=== PATIENT | female | born 1945 | race Caucasian/White ===

== ENCOUNTER → 2017-03-25 | Outpatient (CLI) | payer OTHER ==
[~2017-03-25] MED LIST: ALBUAER INH; ASPI81CH2 PO; CALC-20 PO; CALC600T; CALCTAB5 PO; CMD6 PO; FSMD/70 PO; FURO40TA3 PO; IPRASOL4 INH; LEVO1TAB33 PO; LISI20TA3 PO; MCRK20 PO; OXGN; OXYM0.0592 INH; POTA20TA16 PO; ROSU20TA PO; SERT1TAB68 PO; TPRSR/50 PO; WARF-283 PO
[2017-03-25 18:11] LABS: INR 3.2 (0.9-1.1); PROTHROMBIN TIME (PATIENT) 36.4 SECONDS (9.0-12.0)
== END | disposition home or self-care (01) ==
LOC: C.LABMFLN 07:28
PROVIDERS: ATTEND Family Medicine
DX: Z95.2 Presence of prosthetic heart valve (principal)

== ENCOUNTER → 2017-04-09 | Outpatient (CLI) | payer OTHER ==
[2017-04-09 13:04] LABS: PROTHROMBIN TIME (PATIENT) 45.3 SECONDS (9.0-12.0)
== END | disposition home or self-care (01) ==
LOC: C.LABMFLN 10:37
PROVIDERS: ATTEND Family Medicine
DX: Z95.2 Presence of prosthetic heart valve (principal)

== ENCOUNTER 2017-05-06 21:56 | Inpatient (IN) | payer OTHER ==
[~2017-05-06] VITALS: Ht 149.9 cm; Wt 104.1 kg
[~2017-05-06 21:56] MED LIST changes: -ASPI81CH2 PO; -CALC-20 PO; -CALC600T; -FSMD/70 PO; -FURO40TA3 PO; -IPRASOL4 INH; -LEVO1TAB33 PO; -LISI20TA3 PO; -MCRK20 PO; -OXGN; -POTA20TA16 PO; -ROSU20TA PO; -SERT1TAB68 PO; -TPRSR/50 PO; -WARF-283 PO
[2017-05-06 22:29] LABS: COMPLETE YES; EOS % 1.6 %; HEMATOCRIT 39.4 % (37-47); IG% 0.1 %; LYMPH ABS # 0.92 K/uL (1.2-3.4); MEAN CELL VOLUME 91.8 fL (80-100); MEAN CORPUSCULAR HEMOGLOBIN 28.9 pg (25-34); MEAN CORPUSCULAR HGB CONC 31.5 g/dl (32-36); MEAN PLATELET VOLUME 12.4 fL (7.4-10.4); MONO % 9.9 %; NEUT % 75.4 %; PLATELET COUNT 151 K/uL (130-400); RED BLOOD COUNT 4.29 M/uL (4.2-5.4); WHITE BLOOD COUNT 7.07 K/uL (4.8-10.8)
[2017-05-06] MEDS ORDERED: METHYLPREDNISOLONE 125 MG VIAL IV STA (22:41)
[2017-05-06] MEDS ORDERED: ALBUT/IPRATROP 3MG/0.5MG NEB 3 ML VIAL INH ONE (22:45)
[2017-05-06 22:48] LABS: BUN/CREATININE RATIO 19.9 (10-20); CREATININE 1.1 mg/dl (0.60-1.20); POTASSIUM 4.1 mmol/L (3.5-5.1)
[2017-05-06 22:51] LABS: ALB/GLOB RATIO 0.8 (0.9-2)
[2017-05-06 22:52] LABS: CALCIUM 8.8 mg/dl (8.5-10.1); INR 3.1 (0.9-1.1); PARTIAL THROMBOPLASTIN RATIO 1.9; PROTHROMBIN TIME (PATIENT) 34.8 SECONDS (9.0-12.0)
--- NOTE | 2017-05-06 22:55 | DIAGNOSTIC IMAGING REPORT ---
CHEST ONE VIEW PORTABLE CLINICAL HISTORY: SOB dyspnea COMPARISON STUDY: No previous studies for comparison. FINDINGS: Moderate cardiomegaly. Median sternotomy. Bipolar cardiac pacemaker. Slight blunting left lateral costophrenic angle. Findings of congestive failure. IMPRESSION: Congestive heart failure. Electronically signed by: Armin Chowdary M.D. 05/06/2017 10:54 PM Dictated Date/Time: 05/06/2017 10:54 PM
[2017-05-06] MEDS ORDERED: FUROSEMIDE 40 MG/4 ML VIAL IV STA (23:55)
[2017-05-07] VITALS (12 sets, daily range): BP systolic 92–134; BP diastolic 58–69; PULSE 59–92; TEMP 36.4–36.8; O2SAT 88–98; Ht 149.9 cm; Wt 104.1 kg
[2017-05-07] MEDS ORDERED: CALC600T (00:25)
[2017-05-07] MEDS ORDERED: OXGN (00:26)
--- NOTE | 2017-05-07 01:21 | EMERGENCY ROOM VISIT NOTE ---
History Report prepared by Aleta: Clinton Diego Under the Supervision of: Dr. Allan Telles M.D. First contact with patient: 22:26 Chief Complaint: SHORTNESS OF BREATH Stated Complaint: SOB History of Present Illness The patient is a 72 year old female who presents to the Emergency Room by EMS with complaints of persistent shortness of breath beginning 1.5 months ago. Per nursing staff, the patient was diagnosed with bilateral lower lobe pneumonia about 1.5 months ago at [facility] and been having problems with shortness of breath and coughing ever since. She states that the patient's cough produces a yellow sputum. She states that the patient has been wheezing as well. Nursing staff states that the patient has been seen three times in the [place] ED for her symptoms. She notes that the patient finished her treatment of Doxycycline three days ago. She states that the patient's symptoms acutely worsened yesterday, and she decided to present to this ED for a second opinion. The patient wears 3.5 L of oxygen at night. She has a history of asthma , CHF, HTN, hyperlipidemia, and has a pacemaker in place. She was given a DuoNeb en route which improved her symptoms. The patient notes that she was diagnosed with asthma very recently. She states that her symptoms were not improved with steroids or antibiotics. She was afebrile en route. Pt denies LOC , headache, chills, diaphoresis, visual changes, neck pain, chest pain, nausea, vomiting, abdominal pain, back pain, melena, hematochezia, urinary symptoms, numbness, weakness, lymphadenopathy, rash, or other complaints. Source of History: patient, nursing staff Onset: 1.5 months ago Quality: other (shortness of breath) Timing: other (persistent) Associated Symptoms: + cough (produces yellow sputum), No fevers, No chest pain Review of Systems See HPI for pertinent positives and negatives. A total of ten systems were reviewed and were otherwise negative. Past Medical & Surgical Medical Problems: (1) Asthma (2) CHF (congestive heart failure) (3) HTN (hypertension) (4) Hyperlipidemia (5) Pacemaker Surgical Problems: (1) Mechanical heart valve present Family History No pertinent family history stated. Social History Smoking Status: Never Smoker Housing Status: lives with family Occupation Status: retired Current/Historical Medications Scheduled Alendronate/Cholecalciferol (Fosamax+D 70MG/2800 Iu), 1 TABLET PO WK Aspirin (Aspirin), 81 MG PO DAILY Calcium Carbonate-Vitamin D (Calcium 600 + D), 1 TAB PO AMHS Furosemide (Lasix), 40 MG PO QAM Lisinopril (Prinivil), 20 MG PO HS Metoprolol Succinate (Metoprolol Succinate ER), 50 MG PO QAM Oxygen (Oxygen), 3 LITERS NA HS Rosuvastatin Calcium (Crestor), 20 MG PO HS Sertraline Hcl (Zoloft), 100 MG PO HS Warfarin Sodium (Warfarin Sodium), MG PO DIRECTED Allergies Coded Allergies: Morphine (Verified Allergy, Severe, HALLUCINATIONS AND AGGRESSION, 05/07/17) Digoxin (Verified Adverse Reaction, Severe, N/V, 05/07/17) Physical Exam Vital Signs Date Time Temp Pulse Resp B/P (MAP) Pulse Ox O2 Delivery O2 Flow Rate FiO2 05/07/17 01:08 77 128/76 93 Nasal Cannula 2.0 05/07/17 00:15 93 14 128/ 93 Nasal Cannula 2.0 05/06/17 23:03 92 16 124/70 98 Nebulizer 05/06/17 22:56 93 05/06/17 22:31 94 Nasal Cannula 2.0 05/06/17 22:31 94 Nasal Cannula 2.0 05/06/17 21:58 93 Room Air 05/06/17 21:58 36.7 85 22 121/89 93 Room Air Physical Exam GENERAL: Awake, alert, well-appearing, in no distress HENT: Normocephalic, atraumatic. Oropharynx unremarkable. EYES: Normal conjunctiva. Sclera non-icteric. NECK: Supple. No nuchal rigidity. FROM. No JVD. RESPIRATORY: Dyspnea. Expiratory wheezes bilaterally. Rales at the bilateral lung bases. CARDIAC: Regular rate, normal rhythm. Extremities warm and well perfused. Pulses equal. ABDOMEN: Soft, non-distended. No tenderness to palpation. No rebound or guarding. No masses. RECTAL: Deferred. MUSCULOSKELETAL: Chest examination reveals no tenderness. The back is symmetrical on inspection without obvious abnormality. There is no CVA tenderness to palpation. No joint edema. LOWER EXTREMITIES: Calves are equal size bilaterally and non-tender. No edema. No discoloration. NEURO: Normal sensorium. No sensory or motor deficits noted. SKIN: No rash or jaundice noted. Medical Decision & Procedures ER Provider Diagnostic Interpretation: X-ray: Per my interpretation, radiologist review. CHEST ONE VIEW PORTABLE FINDINGS: Moderate cardiomegaly. Median sternotomy. Bipolar cardiac pacemaker. Slight blunting left lateral costophrenic angle. Findings of congestive failure. IMPRESSION: Congestive heart failure. Electronically signed by: Armin Chowdary M.D. Laboratory Results 05/06/17 22:16 Red Blood Count 4.29, Mean Corpuscular Volume 91.8, Mean Corpuscular Hemoglobin 28.9, Mean Corpuscular Hemoglobin Concent 31.5, Mean Platelet Volume 12.4, Neutrophils (%) (Auto) 75.4, Lymphocytes (%) (Auto) 13.0, Monocytes (%) (Auto) 9.9, Eosinophils (%) (Auto) 1.6, Basophils (%) (Auto) 0.0, Neutrophils # (Auto) 5.33, Lymphocytes # (Auto) 0.92, Monocytes # (Auto) 0.70, Eosinophils # (Auto) 0.11, Basophils # (Auto) 0.00 05/06/17 22:16 Test 05/06/17 22:16 White Blood Count 7.07 K/uL (4.8-10.8) Red Blood Count 4.29 M/uL (4.2-5.4) Hemoglobin 12.4 g/dL (12.0-16.0) Hematocrit 39.4 % (37-47) Mean Corpuscular Volume 91.8 fL (80-100) Mean Corpuscular Hemoglobin 28.9 pg (25-34) Mean Corpuscular Hemoglobin Concent 31.5 g/dl (32-36) Platelet Count 151 K/uL (130-400) Mean Platelet Volume 12.4 fL (7.4-10.4) Neutrophils (%) (Auto) 75.4 % Lymphocytes (%) (Auto) 13.0 % Monocytes (%) (Auto) 9.9 % Eosinophils (%) (Auto) 1.6 % Basophils (%) (Auto) 0.0 % Neutrophils # (Auto) 5.33 K/uL (1.4-6.5) Lymphocytes # (Auto) 0.92 K/uL (1.2-3.4) Monocytes # (Auto) 0.70 K/uL (0.11-0.59) Eosinophils # (Auto) 0.11 K/uL (0-0.5) Basophils # (Auto) 0.00 K/uL (0-0.2) RDW Standard Deviation 50.0 fL (36.4-46.3) RDW Coefficient of Variation 14.8 % (11.5-14.5) Immature Granulocyte % (Auto) 0.1 % Immature Granulocyte # (Auto) 0.01 K/uL (0.00-0.02) Prothrombin Time 34.8 SECONDS (9.0-12.0) Prothromb Time International Ratio 3.1 (0.9-1.1) Activated Partial Thromboplast Time 48.3 SECONDS (21.0-31.0) Partial Thromboplastin Ratio 1.9 Anion Gap 7.0 mmol/L (3-11) Est Creatinine Clear Calc Drug Dose 49.4 ml/min Estimated GFR () 57.7 Estimated GFR (Non- 49.8 BUN/Creatinine Ratio 19.9 (10-20) Calcium Level 8.8 mg/dl (8.5-10.1) Total Bilirubin 0.6 mg/dl (0.2-1) Aspartate Amino Transf (AST/SGOT) 15 U/L (15-37) Alanine Aminotransferase (ALT/SGPT) 13 U/L (12-78) Alkaline Phosphatase 92 U/L (45-117) Troponin I 0.021 ng/ml (0-0.045) Pro-B-Type Natriuretic Peptide 2612 pg/ml (0-900) Total Protein 6.5 gm/dl (6.4-8.2) Albumin 2.8 gm/dl (3.4-5.0) Globulin 3.7 gm/dl (2.5-4.0) Albumin/Globulin Ratio 0.8 (0.9-2) Laboratory results reviewed by me Medications Administered Medications (Trade) Dose Ordered Sig/Jenifer Route Start Time Stop Time Status Last Admin Dose Admin Methylprednisolone Sodium Succinate (Solu-Medrol IV) 125 mg NOW STAT IV 05/06/17 22:41 05/06/17 22:43 DC 05/06/17 22:57 125 MG Albuterol/ Ipratropium (Duoneb) 12 ml ONE ONCE INH 05/06/17 22:45 05/06/17 22:46 DC 05/06/17 22:58 12 ML Furosemide (Lasix Inj) 40 mg NOW STAT IV 05/06/17 23:55 05/06/17 23:56 DC 05/07/17 00:14 40 MG ECG Indication: SOB/dyspnea Rate (beats per minute): 89 Rhythm: atrial fibrillation Findings: no acute ischemic change, no ectopy ED Course 0: The patient was evaluated in room B10. A complete history and physical exam was performed. 2240: Ordered Solu-Medrol 125 mg IV. 2244: Ordered DuoNeb 12 mL INH. 5: Ordered Lasix Inj 40 mg IV. Upon reexamination, the patient was resting comfortably. I discussed the test results and treatment plan with her. The patient will be evaluated for further management. Medical Decision Medication Reconciliation: I attest that I have personally reviewed the patient' s current medication list Blood pressure screening: Patient was found to have normal blood pressure on screening and does not require follow-up. Triage Nursing notes reviewed. The patient's presentation and history were concerning for shortness of breath. Etiologies such as pneumonia, COPD, reactive airway disease, CHF, cardiac ischemia, pulmonary embolism, pneumothorax, musculoskeletal, infections, gastrointestinal, as well as others were entertained. Prior records were obtained from the previous visits to the [facility]. The patient had a CT scan that revealed pneumonia. There was some question about masses as well. The patient underwent a chest x-ray here which showed sinus concerning more for CHF. Her CBC and chemistry panel was unremarkable. Cardiac markers negative but BNP was elevated concerning for CHF. The patient was wheezing. She was given an hour-long treatment and Solu-Medrol. On reassessment she was feeling better. Patient was given a dose of IV Lasix. She will need further evaluation and management in the hospital. I did discuss this with the patient and her family. They were in agreement. Consultation was made with internal medicine. The patient was evaluated in the Emergency Room for further treatment. Consults Time Called: 0000 Consulting Physician: Dr. Marcelino GRANDA Returned Call: [phone] Discussed the patient's case. The patient will be evaluated for further treatment and disposition. Impression Primary Impression: SOB (shortness of breath) Additional Impressions: CHF (congestive heart failure) COPD (chronic obstructive pulmonary disease) Scribe Attestation The scribe's documentation has been prepared under my direction and personally reviewed by me in its entirety. I confirm that the note above accurately reflects all work, treatment, procedures, and medical decision making performed by me. Departure Information Dispostion Being Evaluated By Hospitalist Laina Barker M.D. (PCP) Patient Instructions My [facility] Problem Qualifiers
[2017-05-07] MEDS ORDERED: ONDANSETRON INJ 2 MG/ML 2 ML VIAL IV PRN (01:30)
[2017-05-07] MEDS ORDERED: POLYETHYLENE (MIRALAX) 17 GM PACK PO PRN (01:30)
[2017-05-07] MEDS ORDERED: ACETAMINOPHEN 325 MG TAB PO PRN (01:30)
[2017-05-07] MEDS ORDERED: ALBUTEROL 0.083% NEBU SOLN 3 ML VIAL INH PRN (02:00)
--- NOTE | 2017-05-07 02:52 | History and Physical ---
History & Physical Date & Time of Service: May 07, 2017 at 02:02 Chief Complaint: SOB Primary Care Physician: Laina Rose M.D. History of Present Illness Source: patient 72 y/o F Hx AVR with mechanical valve following repair of an ascending AA, PAF, HTN, pacer due to sick sinus syndrome, likely history of CHF. Pt was admitted to [facility] 04/25 for SOB, a productive cough and hemoptysis. She was treated for a multilobar pneumonia. She has been treated with both Augmentin and Doxycycline for an extended period. Despite complying with treatment, her cough may be worsening and she has become progressively SOB over the past 2 days. Initial imaging, labs, CXR are more consistent with CHF exacerbation than recurrent PNM. On review of notes from [facility], it appears that her recent hemoptysis resolved spontaneously with correction of her INR which was supratherapeutic when she was admitted. A CT chest obtained 04/25 revealed a suspicious mass in the posterior LLL. She was scheduled for a repeat CT 05/09 to determine if the mass responded to antibiotics. She was DCd with 3L 02 QHS as she has a tendency to desaturate at night. A history of CHF without specifics appears in her recent discharge paperwork. She denies knowledge of a diagnosis of heart failure although she does mention that she may have had fluid in her lungs at one point. Past Medical/Surgical History Medical Problems: (1) Asthma Status: Chronic (2) CHF (congestive heart failure) Status: Chronic (3) HTN (hypertension) Status: Chronic (4) Hyperlipidemia Status: Chronic (5) Pacemaker Status: Chronic Surgical Problems: (1) Mechanical heart valve present Status: Chronic Social History Smoking Status: Never Smoker Occupational Status: retired Allergies Coded Allergies: Morphine (Verified Allergy, Severe, HALLUCINATIONS AND AGGRESSION, 05/07/17) Digoxin (Verified Adverse Reaction, Severe, N/V, 05/07/17) Home Medications Scheduled Alendronate/Cholecalciferol (Fosamax+D 70MG/2800 Iu), 1 TABLET PO WK Aspirin (Aspirin), 81 MG PO DAILY Calcium Carbonate-Vitamin D (Calcium 600 + D), 1 TAB PO AMHS Furosemide (Lasix), 40 MG PO QAM Lisinopril (Prinivil), 20 MG PO HS Metoprolol Succinate (Metoprolol Succinate ER), 50 MG PO QAM Oxygen (Oxygen), 3 LITERS NA HS Rosuvastatin Calcium (Crestor), 20 MG PO HS Sertraline Hcl (Zoloft), 100 MG PO HS Warfarin Sodium (Warfarin Sodium), MG PO DIRECTED Review of Systems Constitutional: No fever, No chills, No sweats, No weight loss, No weakness Eyes: No worsening of vision, No eye pain ENT: No hearing loss, No unusual epistaxis, No nasal symptoms Respiratory: + cough, + sputum, + shortness of breath, + dyspnea on exertion, + dyspnea at rest, No wheezing Cardiovascular: No chest pain, No orthopnea, No PND, No edema Abdomen: No pain, No nausea, No vomiting Musculoskeletal: No joint pain, No muscle pain Genitourinary - Female: No dysuria, No urinary frequency, No urinary urgency, No urinary incontinence, No urinary retention, No hematuria Neurologic: + weakness, No memory loss, No paralysis Psychiatric: No depression symptoms, No anhedonism Endocrine: No fatigue, No excessive thirst Hematologic / Lymphatic: No abnormal bleeding/bruising, No clotting problems Integumentary: No rash, No itch Physical Exam Vital Signs Date Time Temp Pulse Resp B/P (MAP) Pulse Ox O2 Delivery O2 Flow Rate FiO2 05/07/17 01:08 77 128/76 93 Nasal Cannula 2.0 05/07/17 00:15 93 14 128/ 93 Nasal Cannula 2.0 05/06/17 23:03 92 16 124/70 98 Nebulizer 05/06/17 22:56 93 05/06/17 22:31 94 Nasal Cannula 2.0 05/06/17 22:31 94 Nasal Cannula 2.0 05/06/17 21:58 93 Room Air 05/06/17 21:58 36.7 85 22 121/89 93 Room Air General Appearance: WD/WN, no apparent distress Head: normocephalic, atraumatic Eyes: normal inspection, EOMI ENT: normal ENT inspection, pharynx normal Neck: supple, + JVD Respiratory/Chest: chest non-tender, + decreased breath sounds, + crackles (L > R) Cardiovascular: no edema, + JVD, + irregularly irregular, + pertinent finding ( Bounding pulse - machnical vaqlve audibel) Abdomen/GI: normal bowel sounds, non tender, soft Back: normal inspection, no CVA tenderness, no muscle spasm, normal range of motion Extremities/Musculoskelatal: normal inspection, no calf tenderness, normal capillary refill, no pedal edema, normal range of motion 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/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, no motor/sensory deficits, alert, normal mood/affect, normal reflexes, oriented x 3 Skin: normal color, warm/dry, no rash Diagnostics Laboratory Results Results Past 24 Hours Test 05/06/17 22:16 Range/Units White Blood Count 7.07 4.8-10.8 K/uL Red Blood Count 4.29 4.2-5.4 M/uL Hemoglobin 12.4 12.0-16.0 g/dL Hematocrit 39.4 37-47 % Mean Corpuscular Volume 91.8 80-100 fL Mean Corpuscular Hemoglobin 28.9 25-34 pg Mean Corpuscular Hemoglobin Concent 31.5 32-36 g/dl Platelet Count 151 130-400 K/uL Mean Platelet Volume 12.4 7.4-10.4 fL Neutrophils (%) (Auto) 75.4 % Lymphocytes (%) (Auto) 13.0 % Monocytes (%) (Auto) 9.9 % Eosinophils (%) (Auto) 1.6 % Basophils (%) (Auto) 0.0 % Neutrophils # (Auto) 5.33 1.4-6.5 K/uL Lymphocytes # (Auto) 0.92 1.2-3.4 K/uL Monocytes # (Auto) 0.70 0.11-0.59 K/uL Eosinophils # (Auto) 0.11 0-0.5 K/uL Basophils # (Auto) 0.00 0-0.2 K/uL RDW Standard Deviation 50.0 36.4-46.3 fL RDW Coefficient of Variation 14.8 11.5-14.5 % Immature Granulocyte % (Auto) 0.1 % Immature Granulocyte # (Auto) 0.01 0.00-0.02 K/uL Prothrombin Time 34.8 9.0-12.0 SECONDS Prothromb Time International Ratio 3.1 0.9-1.1 Activated Partial Thromboplast Time 48.3 21.0-31.0 SECONDS Partial Thromboplastin Ratio 1.9 Sodium Level 142 136-145 mmol/L Potassium Level 4.1 3.5-5.1 mmol/L Chloride Level 106 98-107 mmol/L Carbon Dioxide Level 29 21-32 mmol/L Anion Gap 7.0 3-11 mmol/L Blood Urea Nitrogen 22 7-18 mg/dl Creatinine 1.10 0.60-1.20 mg/dl Est Creatinine Clear Calc Drug Dose 49.4 ml/min Estimated GFR () 57.7 Estimated GFR (Non- 49.8 BUN/Creatinine Ratio 19.9 10-20 Random Glucose 94 70-99 mg/dl Calcium Level 8.8 8.5-10.1 mg/dl Total Bilirubin 0.6 0.2-1 mg/dl Aspartate Amino Transf (AST/SGOT) 15 15-37 U/L Alanine Aminotransferase (ALT/SGPT) 13 12-78 U/L Alkaline Phosphatase 92 45-117 U/L Troponin I 0.021 0-0.045 ng/ml Pro-B-Type Natriuretic Peptide 2612 0-900 pg/ml Total Protein 6.5 6.4-8.2 gm/dl Albumin 2.8 3.4-5.0 gm/dl Globulin 3.7 2.5-4.0 gm/dl Albumin/Globulin Ratio 0.8 0.9-2 Microbiology Results 05/06/17 Blood Culture, Received Pending 05/06/17 Blood Culture, Received Pending Diagnostic Radiology CXR: vascular congestion/pulmonary edema EKG AF, 90BPM - no evidence of acute ischemia Impression Assessment and Plan 72 y/o F Hx AVR with mechanical valve following repair of an ascending AA, PAF, HTN, pacer due to sick sinus syndrome, likely history of CHF. Pt was admitted to [facility] 04/25 for SOB, a productive cough and hemoptysis. She was treated for a multilobar pneumonia. She has been treated with both Augmentin and Doxycycline for an extended period. Despite complying with treatment, her cough may be worsening and she has become progressively SOB over the past 2 days. Initial imaging, labs, CXR are more consistent with CHF exacerbation than recurrent PNM. 1) SOB - CXR, labs, exam are consistent with CHF exacerbation. We do not have an echo on record or from the recent hospital records so have ordered one AM. 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 She has been placed on Lasix 40mg BID pending AM reevaluation. She is receiving Lisinopril and Metoprolol. 2) Persistent cough - recent PNM treatment - denies a history of smoking or underlying lung disease although Asthma is listed in records. She had seen a drum tender in [place] and as mentioned was due for a followup CT due to the possibility of a LLL mass. If she does not improve with treatment for CHF we should consider a pulmonology consult. Nebs provided, pt given one dose steroids in ER - will hold on additional. The mass can be followed in the outpt setting. 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 Per records from [facility], this is a chronic finding. Full code - Cont Coumadin prophylaxis Total time for this admit including review of labs, meds, imaging, EKG, extensive outside records - 45 min Level of Care Telemetry Resuscitation Status FULL RESUSCITATION VTE Prophylaxis VTE Risk Assessment Done? Y/N: Yes Risk Level: High Given or contraindicated: Warfarin (Coumadin)
[2017-05-07] MEDS: ALBUT/IPRATROP 3MG/0.5MG NEB 3 ML VIAL INH SCH ×4 (02:56→18:55)
[2017-05-07] MEDS ORDERED: NITROGLYCERIN OINT 2% 1GM PACKET EXT ONE (03:00)
[2017-05-07] MEDS: ASPIRIN 81 MG ECTAB PO SCH (08:20)
[2017-05-07] MEDS: POTASSIUM CHLORIDE 20 MEQ TABCR PO SCH ×2 (08:20→20:35)
[2017-05-07] MEDS: METOPROLOL SUCC 50MG EXT REL TAB PO SCH (08:21)
[2017-05-07] MEDS ORDERED: FUROSEMIDE INJ 40 MG in SYRINGE 0 ML IV SCH (09:00)
--- NOTE | 2017-05-07 15:38 | Progress Note ---
Subjective Date of Service: May 07, 2017. Subjective Pt evaluation today including: conversation w/ patient Pt is feeling improved. No SOB at rest, but has not been OOB much. Pt denies fever, chest pain, abd pain, n/v/c/d, LE pain or swelling. Tolerating PO without issue. ROS as noted above, otherwise neg. Problem List Medical Problems: (1) CHF (congestive heart failure) Status: Chronic (2) COPD (chronic obstructive pulmonary disease) Status: Acute (3) SOB (shortness of breath) Status: Acute Objective Vital Signs Date Time Temp Pulse Resp B/P (MAP) Pulse Ox O2 Delivery O2 Flow Rate FiO2 05/07/17 14:50 36.7 82 20 106/59 (75) 90 Room Air 05/07/17 13:58 72 20 98 Nasal Cannula 3.0 05/07/17 12:00 Nasal Cannula 3.0 05/07/17 11:30 36.5 80 18 121/69 (86) 95 Nasal Cannula 3.0 05/07/17 08:00 Nasal Cannula 3.0 05/07/17 07:47 36.4 72 18 107/66 (80) 91 Nasal Cannula 3.0 05/07/17 07:42 69 20 92 Nasal Cannula 3.0 05/07/17 04:00 36.7 92 20 92/58 (69) 92 Nasal Cannula 3.0 05/07/17 04:00 Nasal Cannula 3.0 05/07/17 02:58 92 20 93 Nasal Cannula 3.0 05/07/17 02:55 36.7 86 20 92/58 (69) 92 Nasal Cannula 3.0 05/07/17 02:02 89 24 126/91 90 05/07/17 02:00 36.8 84 20 134/67 94 Nasal Cannula 3.0 05/07/17 01:08 77 128/76 93 Nasal Cannula 2.0 05/07/17 00:15 93 14 128/ 93 Nasal Cannula 2.0 05/06/17 23:03 92 16 124/70 98 Nebulizer 05/06/17 22:56 93 05/06/17 22:31 94 Nasal Cannula 2.0 05/06/17 22:31 94 Nasal Cannula 2.0 05/06/17 21:58 93 Room Air 05/06/17 21:58 36.7 85 22 121/89 93 Room Air Physical Exam General Appearance: WD/WN, no apparent distress Respiratory/Chest: normal breath sounds, no respiratory distress Cardiovascular: regular rate, rhythm, no edema Abdomen: non tender, soft Extremities: non-tender, no pedal edema Neurologic/Psychiatric: alert, normal mood/affect, oriented x 3 Skin: normal color, warm/dry Laboratory Results Last 24 Hours Test 05/06/17 22:16 05/07/17 05:55 White Blood Count 7.07 K/uL Red Blood Count 4.29 M/uL Hemoglobin 12.4 g/dL Hematocrit 39.4 % Mean Corpuscular Volume 91.8 fL Mean Corpuscular Hemoglobin 28.9 pg Mean Corpuscular Hemoglobin Concent 31.5 g/dl Platelet Count 151 K/uL Mean Platelet Volume 12.4 fL Neutrophils (%) (Auto) 75.4 % Lymphocytes (%) (Auto) 13.0 % Monocytes (%) (Auto) 9.9 % Eosinophils (%) (Auto) 1.6 % Basophils (%) (Auto) 0.0 % Neutrophils # (Auto) 5.33 K/uL Lymphocytes # (Auto) 0.92 K/uL Monocytes # (Auto) 0.70 K/uL Eosinophils # (Auto) 0.11 K/uL Basophils # (Auto) 0.00 K/uL RDW Standard Deviation 50.0 fL RDW Coefficient of Variation 14.8 % Immature Granulocyte % (Auto) 0.1 % Immature Granulocyte # (Auto) 0.01 K/uL Prothrombin Time 34.8 SECONDS Prothromb Time International Ratio 3.1 Activated Partial Thromboplast Time 48.3 SECONDS Partial Thromboplastin Ratio 1.9 Sodium Level 142 mmol/L Potassium Level 4.1 mmol/L Chloride Level 106 mmol/L Carbon Dioxide Level 29 mmol/L Anion Gap 7.0 mmol/L Blood Urea Nitrogen 22 mg/dl Creatinine 1.10 mg/dl Est Creatinine Clear Calc Drug Dose 49.4 ml/min Estimated GFR () 57.7 Estimated GFR (Non- 49.8 BUN/Creatinine Ratio 19.9 Random Glucose 94 mg/dl Calcium Level 8.8 mg/dl Total Bilirubin 0.6 mg/dl Aspartate Amino Transf (AST/SGOT) 15 U/L Alanine Aminotransferase (ALT/SGPT) 13 U/L Alkaline Phosphatase 92 U/L Troponin I 0.021 ng/ml < 0.015 ng/ml Pro-B-Type Natriuretic Peptide 2612 pg/ml Total Protein 6.5 gm/dl Albumin 2.8 gm/dl Globulin 3.7 gm/dl Albumin/Globulin Ratio 0.8 Assessment and Plan 72 y/o F Hx AVR with mechanical valve following repair of an ascending AA, PAF, HTN, pacer due to sick sinus syndrome, likely history of CHF. Pt was admitted to [place] 04/25 for SOB, a productive cough and hemoptysis. She was treated for a multilobar pneumonia. She has been treated with both Augmentin and Doxycycline for an extended period. Despite complying with treatment, her cough may be worsening and she has become progressively SOB over the past 2 days. Initial imaging, labs, CXR are more consistent with CHF exacerbation than recurrent PNA. SOB - CXR, labs, exam are consistent with CHF exacerbation ECHO pending Lasix 40mg IV BID decreased to 20mg IV QD given pt is lasix naive and feeling improved. Persistent cough - recent inpt PNA treatment - denies a history of smoking or underlying lung disease although Asthma is listed in records. Follows with pulm in [place] and was planning for followup CT on 05/09 due to the possibility of a LLL mass. CT chest in AM if renal fxn is stable s/p lasix AF - INR is therapeutic - HR controlled - per records she was recently taken off Amiodarone Lisinopril and Metoprolol. 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 Per records from [place], this is a chronic finding. Full code - Cont Coumadin prophylaxis
[2017-05-07] MEDS: WARFARIN SOD 4 MG TAB PO SCH (15:43)
--- NOTE | 2017-05-07 18:19 | Medical Student: [facility] ---
Med Student Progress Note Date of Service May 07, 2017. Subjective Pt evaluation today including: conversation w/ patient Patient states that she is feeling better. She denies any SOB, chest pain, nausea, vomiting, diarrhea, or fever/chills at this time. Appetite has been good and she hasn't noticed any swelling. We discussed different conditions that can cause "fluid on the lungs." The patient claims she has never been formally diagnosed with CHF, however she has had fluid on her lungs in the past. Review of Systems Constitutional: No fever, No chills, No sweats Eyes: No worsening of vision, No diplopia ENT: No trouble swallowing Respiratory: + cough, + shortness of breath, + dyspnea on exertion Cardiac: No chest pain Female : No dysuria, No urinary frequency Objective Vital Signs Date Time Temp Pulse Resp B/P (MAP) Pulse Ox O2 Delivery O2 Flow Rate FiO2 05/07/17 16:00 Nasal Cannula 1.0 05/07/17 14:50 36.7 82 20 106/59 (75) 90 Room Air 05/07/17 13:58 72 20 98 Nasal Cannula 3.0 05/07/17 12:00 Nasal Cannula 3.0 05/07/17 11:30 36.5 80 18 121/69 (86) 95 Nasal Cannula 3.0 05/07/17 08:00 Nasal Cannula 3.0 05/07/17 07:47 36.4 72 18 107/66 (80) 91 Nasal Cannula 3.0 05/07/17 07:42 69 20 92 Nasal Cannula 3.0 05/07/17 04:00 36.7 92 20 92/58 (69) 92 Nasal Cannula 3.0 05/07/17 04:00 Nasal Cannula 3.0 05/07/17 02:58 92 20 93 Nasal Cannula 3.0 05/07/17 02:55 36.7 86 20 92/58 (69) 92 Nasal Cannula 3.0 05/07/17 02:02 89 24 126/91 90 05/07/17 02:00 36.8 84 20 134/67 94 Nasal Cannula 3.0 05/07/17 01:08 77 128/76 93 Nasal Cannula 2.0 05/07/17 00:15 93 14 128/ 93 Nasal Cannula 2.0 05/06/17 23:03 92 16 124/70 98 Nebulizer 05/06/17 22:56 93 05/06/17 22:31 94 Nasal Cannula 2.0 05/06/17 22:31 94 Nasal Cannula 2.0 05/06/17 21:58 93 Room Air 05/06/17 21:58 36.7 85 22 121/89 93 Room Air Physical Exam ENT: pharynx normal Neck: supple, trachea midline Respiratory/Chest: chest non-tender, + decreased breath sounds Cardiovascular: regular rate, rhythm, no edema, no gallop, no JVD, no murmur Abdomen: non tender, soft Neurologic/Psychiatric: alert, normal mood/affect, oriented x 3 Skin: normal color Laboratory Results Last 24 Hours Test 05/06/17 22:16 05/07/17 05:55 White Blood Count 7.07 K/uL Red Blood Count 4.29 M/uL Hemoglobin 12.4 g/dL Hematocrit 39.4 % Mean Corpuscular Volume 91.8 fL Mean Corpuscular Hemoglobin 28.9 pg Mean Corpuscular Hemoglobin Concent 31.5 g/dl Platelet Count 151 K/uL Mean Platelet Volume 12.4 fL Neutrophils (%) (Auto) 75.4 % Lymphocytes (%) (Auto) 13.0 % Monocytes (%) (Auto) 9.9 % Eosinophils (%) (Auto) 1.6 % Basophils (%) (Auto) 0.0 % Neutrophils # (Auto) 5.33 K/uL Lymphocytes # (Auto) 0.92 K/uL Monocytes # (Auto) 0.70 K/uL Eosinophils # (Auto) 0.11 K/uL Basophils # (Auto) 0.00 K/uL RDW Standard Deviation 50.0 fL RDW Coefficient of Variation 14.8 % Immature Granulocyte % (Auto) 0.1 % Immature Granulocyte # (Auto) 0.01 K/uL Prothrombin Time 34.8 SECONDS Prothromb Time International Ratio 3.1 Activated Partial Thromboplast Time 48.3 SECONDS Partial Thromboplastin Ratio 1.9 Sodium Level 142 mmol/L Potassium Level 4.1 mmol/L Chloride Level 106 mmol/L Carbon Dioxide Level 29 mmol/L Anion Gap 7.0 mmol/L Blood Urea Nitrogen 22 mg/dl Creatinine 1.10 mg/dl Est Creatinine Clear Calc Drug Dose 49.4 ml/min Estimated GFR () 57.7 Estimated GFR (Non- 49.8 BUN/Creatinine Ratio 19.9 Random Glucose 94 mg/dl Calcium Level 8.8 mg/dl Total Bilirubin 0.6 mg/dl Aspartate Amino Transf (AST/SGOT) 15 U/L Alanine Aminotransferase (ALT/SGPT) 13 U/L Alkaline Phosphatase 92 U/L Troponin I 0.021 ng/ml < 0.015 ng/ml Pro-B-Type Natriuretic Peptide 2612 pg/ml Total Protein 6.5 gm/dl Albumin 2.8 gm/dl Globulin 3.7 gm/dl Albumin/Globulin Ratio 0.8 Assessment and Plan Assessment and Plan: In summary this is a 72 year old woman s/p aortic valve replacement, with a PMH significant for thoracic aortic aneurysm, atrial fibrillation, HTN, and pace- maker secondary to sick sinus syndrome who also likely has an undiagnosed history of CHF. She was recently treated for multilobar pneumonia at [facility] with doxycycline and augmentin. Her current symptoms, labs, and CXR are more suggestive of CHF than a recurrent PNA. SOB- CXR, labs, and physical exam are suggestive of CHF flare-up. Will continue to diuresis with 20 mg IV of Lasix qd (decreased from 40 mg). Less aggressive diuresis is being chosen since the patient is not usually on lasix and has only mild edema. There is some concern of developing pre-renal azotemia with over- aggressive diuresis with a low albumin level. Will continue to monitor. CT scan of the chest scheduled for the AM to evaluate prior mass in the left lower lobe of the lung. A-fib- INR is within therapeutic range. Currently is rate controlled. Mechanical aortic valve- continue coumadin Persistent cough- Unknown source at this time. Consider lisinopril as culprit if the cough persists. No evidence of angioedema at this time. Ascending thoracic aneurysm- Appears to be a chronic problem from reviewing prior notes. Will get a new evaluation tomorrow morning with chest CT scan. Patient is a full code. Reviewed: Pt Seen/Exam by Me History See my note for details. Assessment/Plan 72 y/o F Hx AVR with mechanical valve following repair of an ascending AA, PAF, HTN, pacer due to sick sinus syndrome, likely history of CHF. Pt was admitted to [place] 04/25 for SOB, a productive cough and hemoptysis. She was treated for a multilobar pneumonia. She has been treated with both Augmentin and Doxycycline for an extended period. Despite complying with treatment, her cough may be worsening and she has become progressively SOB over the past 2 days. Initial imaging, labs, CXR are more consistent with CHF exacerbation than recurrent PNA. SOB - CXR, labs, exam are consistent with CHF exacerbation ECHO pending Lasix 40mg IV BID decreased to 20mg IV QD given pt is lasix naive and feeling improved. Persistent cough - recent inpt PNA treatment - denies a history of smoking or underlying lung disease although Asthma is listed in records. Follows with pulm in [place] and was planning for followup CT on 05/09 due to the possibility of a LLL mass. CT chest in AM if renal fxn is stable s/p lasix AF - INR is therapeutic - HR controlled - per records she was recently taken off Amiodarone Lisinopril and Metoprolol. 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 Per records from [place], this is a chronic finding. Full code - Cont Coumadin prophylaxis
[2017-05-07] MEDS: ROSUVASTATIN CALCIUM 20 MG TAB PO SCH (20:35)
[2017-05-07] MEDS: LISINOPRIL 20 MG TAB PO SCH (20:35)
[2017-05-07] MEDS: SERTRALINE HCL 100 MG TAB PO SCH (20:35)
[2017-05-08] VITALS (11 sets, daily range): BP systolic 99–121; BP diastolic 58–68; PULSE 65–83; TEMP 36.4–36.9; O2SAT 90–98
[2017-05-08] MEDS: ALBUT/IPRATROP 3MG/0.5MG NEB 3 ML VIAL INH SCH ×4 (02:19→19:15)
[2017-05-08 05:55] LABS: INR 2.8 (0.9-1.1); PROTHROMBIN TIME (PATIENT) 31.5 SECONDS (9.0-12.0)
[2017-05-08 06:15] LABS: BUN/CREATININE RATIO 20.7 (10-20); CALCIUM 8.2 mg/dl (8.5-10.1); CREATININE 1.4 mg/dl (0.60-1.20)
[2017-05-08] MEDS: ASPIRIN 81 MG ECTAB PO SCH (07:41)
[2017-05-08] MEDS: METOPROLOL SUCC 50MG EXT REL TAB PO SCH (07:41)
[2017-05-08] MEDS: POTASSIUM CHLORIDE 20 MEQ TABCR PO SCH ×2 (07:41→20:41)
[2017-05-08] MEDS ORDERED: FUROSEMIDE INJ 20 MG in SYRINGE 0 ML IV SCH (09:00)
--- NOTE | 2017-05-08 10:21 | Clinical Documentation Query ---
QUERY 1 OF [address] PERSON, Please document specificity of CHF once ECHO is available. In your clinical opinion is this patient being managed for: ( ) Acute diastolic CHF ( x ) Acute systolic CHF ( ) Acute combined systolic and diastolic CHF ( ) Other explanation of clinical findings (Please Explain) ( ) Unable to determine (Please Define) ( ) Need to Discuss ( ) Not Agree The medical record reflects the following clinical findings, treatment, and risk factors. Clinical Indicators: 72 yo female presenting with increasing dyspnea and cough. CXR showed CHF. Treatment: ECHO ordered but pending, IV lasix, tele, zestril, toprol xl, Cardiology consult pending Risk Factors: age, HTN, asthma QUERY 2 OF 2 In your clinical opinion is this patient being managed for: ( ) Acute kidney failure on CKD stage III ( ) CKD stage III without ZARIA ( x ) Other explanation of clinical findings (Please Explain) Acute failure without CKD ( ) Unable to determine (Please Define) ( ) Need to Discuss ( ) Not Agree The medical record reflects the following clinical findings, treatment, and risk factors. Clinical Indicators: Student note mentions some concern of developing pre-renal azotemia. Presenting Cr 1.10 which has risen to Cr 1.40 in 2 day period. Review of historical GFR over the past 2 years shows range of 37.2-49.8 Treatment:IV lasix dose lowered, monitor PRP, treat comorbid conditions Risk Factors: IV diuresis d/t acute CHF, HTN, age Please clarify and document your clinical opinion in the progress notes and discharge summary. Terms such as "probable", "suspected", "likely", "questionable", "possible", or "still to be ruled out" are acceptable. IF IN AGREEMENT, YOU MUST DOCUMENT ABOVE DIAGNOSTIC STATEMENT IN DAILY PROGRESS NOTES AND DISCHARGE SUMMARY. This document is not part of the patient's record. Thank You, Ania Ramírez, RN [phone]
--- NOTE | 2017-05-08 14:03 | Medical Student: [facility] ---
Med Student Progress Note Date of Service May 08, 2017. Subjective Pt evaluation today including: conversation w/ patient No events overnight. Patient is feeling much better. She is sitting in the chair eating breakfast and smiling. No longer SOB. Lung sounds are greatly improved. The patient reported no concerns/complaints at this time. Review of Systems Constitutional: No fever, No chills, No sweats, No fatigue Eyes: No diplopia Respiratory: No cough, No sputum, No shortness of breath Cardiac: No chest pain, No edema Abdomen: No pain, No nausea, No vomiting, No diarrhea Psychiatric: No depression symptoms Objective Vital Signs Date Time Temp Pulse Resp B/P (MAP) Pulse Ox O2 Delivery O2 Flow Rate FiO2 05/08/17 12:00 Nasal Cannula 3.0 05/08/17 11:12 36.4 83 18 101/60 (74) 97 3.0 05/08/17 08:00 Nasal Cannula 3.0 05/08/17 08:00 36.6 77 18 99/66 (77) 96 Nasal Cannula 3.0 05/08/17 07:28 82 16 97 Nasal Cannula 3.0 05/08/17 04:00 36.4 80 20 111/68 (82) 98 Nasal Cannula 3.0 05/08/17 04:00 Nasal Cannula 3.0 05/08/17 02:19 82 16 96 Nasal Cannula 3.0 05/08/17 02:09 96 Nasal Cannula 3.0 05/08/17 00:00 Nasal Cannula 3.0 05/07/17 23:39 36.8 82 20 109/67 (81) 96 Nasal Cannula 3.0 05/07/17 20:00 Nasal Cannula 3.0 05/07/17 19:33 36.5 76 18 117/66 (83) 93 Room Air 05/07/17 18:55 59 16 88 Nasal Cannula 1.0 05/07/17 16:00 Nasal Cannula 1.0 05/07/17 14:50 36.7 82 20 106/59 (75) 90 Room Air 05/07/17 13:58 72 20 98 Nasal Cannula 3.0 Physical Exam General Appearance: WD/WN, no apparent distress ENT: hearing grossly normal, pharynx normal Neck: supple, no adenopathy Respiratory/Chest: chest non-tender, lungs clear, no respiratory distress, no accessory muscle use, + decreased breath sounds (Slightly decreased breath sounds at the left lower base) Cardiovascular: regular rate, rhythm, no edema, no gallop, no JVD, no murmur Abdomen: non tender, soft Neurologic/Psychiatric: alert, normal mood/affect, oriented x 3 Skin: normal color, warm/dry, no rash Laboratory Results Last 24 Hours Test 05/08/17 05:20 Prothrombin Time 31.5 SECONDS Prothromb Time International Ratio 2.8 Sodium Level 143 mmol/L Potassium Level 4.0 mmol/L Chloride Level 106 mmol/L Carbon Dioxide Level 31 mmol/L Anion Gap 6.0 mmol/L Blood Urea Nitrogen 29 mg/dl Creatinine 1.40 mg/dl Est Creatinine Clear Calc Drug Dose 38.8 ml/min Estimated GFR () 43.1 Estimated GFR (Non- 37.2 BUN/Creatinine Ratio 20.7 Random Glucose 92 mg/dl Calcium Level 8.2 mg/dl Assessment and Plan Assessment and Plan: In summar the patient is a 72 year old woman who is admitted to the hospital after a CHF exacerbation. The patient has responded well to diuresis with Lasix. At this time she is feeling much better and all symptoms have resolved. She is ready for discharge. CHF- All symptoms have resolved. Continue lisinopril. If CHF exacerbations recur , consider adding a diuretic to part of her daily medication regimen. Cough- Monitor symptoms over the coming days/weeks and see if they improve. If not, may consider switching lisinopril out for an ARB to see if it reduces cough symptoms. AF and mechanical aortic valve- INR is therapeutic. Continue coumadin. Possible lung mass/aortic aneurysm- Plan to have chest CT done outpatient as scheduled on 05/09 to followup on these prior findings. D/C the patient to home. Reviewed: Pt Seen/Exam by Me History See my note for details. Unable to d/c pt given ECHO still pending at 5:30p Assessment/Plan 72 y/o F Hx AVR with mechanical valve following repair of an ascending AA, PAF, HTN, pacer due to sick sinus syndrome, likely history of CHF. Pt was admitted to [place] 04/25 for SOB, a productive cough and hemoptysis. She was treated for a multilobar pneumonia. She has been treated with both Augmentin and Doxycycline for an extended period. Despite complying with treatment, her cough may be worsening and she has become progressively SOB over the past 2 days. Initial imaging, labs, CXR are more consistent with CHF exacerbation than recurrent PNA. SOB - CXR, labs, exam are consistent with CHF exacerbation ECHO pending, likely acute systolic CHF Lasix 40mg IV BID decreased to 20mg IV QD given pt is lasix naive and feeling improved. Will transition to 20mg PO given elevated cr Continue to wean O2 Persistent cough - recent inpt PNA treatment - denies a history of smoking or underlying lung disease although Asthma is listed in records. Follows with [facility] in [place] and was planning for followup CT on 05/09 due to the possibility of a LLL mass. CT chest on hold given elevated cr. Can pursue this as outpt with pulm once renal function is stable Acute renal failure: likely related to lasix use Monitor AF - INR is therapeutic - HR controlled - per records she was recently taken off Amiodarone Lisinopril and Metoprolol. 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 Per records from [place], this is a chronic finding. Full code - Cont Coumadin prophylaxis
[2017-05-08] MEDS: WARFARIN SOD 4 MG TAB PO SCH (15:30)
[2017-05-08] MEDS ORDERED: PERFLUTREN LIPID MICROSPHERE (DEFINITY) IV ONE (16:28)
--- NOTE | 2017-05-08 17:56 | ECHOCARDIOGRAM REPORT ---
*NOTICE TO RECEIVING [employer] This information is strictly Confidential and protected under [place] law. [place] law prohibits you from making any further disclosure of this information unless further disclosure is expressly permitted by the written consent of the person to whom it pertains or is authorized by law. A general authorization for the release of medical or other information is not sufficient for this purpose. Hospital accepts no responsibility if the information is made available to any other person, INCLUDING THE PATIENT. Interpretation Summary * Name: JAGDEEP VILLA Study Date: 05/08/2017 04:09 PM BP: 104/65 mmHg * Patient Location: .[facility]\S\N282\S\1 HR: 78 * : 1945 (M/d/yyyy) Gender: Female Height: 59 in * Age: 72 yrs Ethnicity: [place] Weight: 236 lb * Ordering Physician: Vinny Benson * Referring Physician: Self, Referred * Performed By: Libertad Bauman RDCS * * Reason For Study: CHF * BSA: 2.0 m2 * Technically difficult study. * Low-normal overall left ventricular systolic function. * Moderate concentric left ventricular hypertrophy. * Mild left atrial dilatation. * Moderate aortic stenosis. * Mild tricuspid regurgitation. Procedure Details * A contrast injection of Definity was performed to improve assessment of LV function. * Contrast was injected into an intravenous site in the right arm. * One vial of Definity ultrasound contrast was diluted in normal saline to a total volume of 10 ml. A total of '2' ml of solution was administered during imaging. * Lot # [id number] of Definity utilized for procedure. * Expiration date JUN 18. * The attending nurse who injected the contrast agent was MEÑO MARTINEZ RN. Left Ventricle * The left ventricle is normal in size. * There is moderate concentric left ventricular hypertrophy. * Ejection Fraction = 50-55%. * Left ventricular systolic function is low normal. * No regional wall motion abnormalities noted. Right Ventricle * The right ventricle is normal in size and function. Atria * The left atrium is mildly dilated. * Right atrial size is normal. Mitral Valve * The mitral valve is normal. * There is mild mitral annular calcification. * There is no mitral valve stenosis. * There is no mitral regurgitation noted. Tricuspid Valve * The tricuspid valve is not well visualized. * There is mild tricuspid regurgitation. * Right ventricular systolic pressure is normal. Aortic Valve * The aortic valve is not well visualized. * Aortic valve area was calculated at 1.1 cm\S\2 using the continuity equation. * Moderate valvular aortic stenosis. * Dimensionless valve index 0.35. * There is no significant aortic regurgitation. Pulmonic Valve * The pulmonic valve is not well visualized. * The pulmonary valve is inadequately visualized, but the Doppler data is adequate for interpretation. * There is no pulmonic valvular stenosis. * There is no significant pulmonary regurgitation. Great Vessels * The aortic root is not well visualized. Pericardium/Pleural * There is no pericardial effusion. Great Vessels * Normal inferior vena cava diameter and respiratory variation suggests normal central venous pressure. MMode 2D Measurements and Calculations IVSd 1.5 cm IVSs 1.8 cm LVIDd 3.9 cm LVIDs 2.9 cm LVPWd 1.7 cm LVPWs 2.3 cm IVS/LVPW 0.90 FS 25.3 % EDV(Teich) 65.1 ml ESV(Teich) 32.1 ml EF(Teich) 50.6 % EDV(cubed) 58.4 ml ESV(cubed) 24.3 ml EF(cubed) 58.4 % % IVS thick 18.5 % % LVPW thick 32.0 % LV mass(C)d 254.4 grams LV mass(C)dI 128.6 grams/m\S\2 LV mass(C)s 264.3 grams LV mass(C)sI 133.6 grams/m\S\2 SV(Teich) 32.9 ml SI(Teich) 16.7 ml/m\S\2 SV(cubed) 34.1 ml SI(cubed) 17.2 ml/m\S\2 LA dimension 4.7 cm LVOT diam 2.0 cm LVOT area 3.1 cm\S\2 LVAd ap4 29.8 cm\S\2 LVLd ap4 7.3 cm EDV(MOD-sp4) 97.6 ml EDV(sp4-el) 103.0 ml LVAs ap4 18.9 cm\S\2 LVLs ap4 6.6 cm ESV(MOD-sp4) 44.9 ml ESV(sp4-el) 46.1 ml EF(MOD-sp4) 54.0 % EF(sp4-el) 55.2 % LVAd ap2 29.8 cm\S\2 LVLd ap2 7.5 cm EDV(MOD-sp2) 96.0 ml EDV(sp2-el) 100.5 ml LVAs ap2 19.0 cm\S\2 LVLs ap2 6.6 cm ESV(MOD-sp2) 46.6 ml ESV(sp2-el) 46.6 ml EF(MOD-sp2) 51.5 % EF(sp2-el) 53.6 % LVLd %diff 2.2 % EDV(MOD-bp) 96.4 ml LVLs %diff -0.27 % ESV(MOD-bp) 45.3 ml EF(MOD-bp) 52.9 % SV(MOD-sp4) 52.7 ml SI(MOD-sp4) 26.7 ml/m\S\2 SV(MOD-sp2) 49.4 ml SI(MOD-sp2) 25.0 ml/m\S\2 SV(MOD-bp) 51.0 ml SI(MOD-bp) 25.8 ml/m\S\2 SV(sp4-el) 56.9 ml SI(sp4-el) 28.7 ml/m\S\2 SV(sp2-el) 53.9 ml SI(sp2-el) 27.2 ml/m\S\2 Doppler Measurements and Calculations MV E max nilda 122.4 cm/sec MV dec time 0.16 sec Ao V2 max 277.4 cm/sec Ao max PG 30.8 mmHg Ao max PG (full) 26.9 mmHg Ao V2 mean 182.5 cm/sec Ao mean PG 15.6 mmHg Ao mean PG (full) 13.9 mmHg Ao V2 VTI 52.4 cm PEREZ(I,A) 1.1 cm\S\2 PEREZ(I,D) 1.1 cm\S\2 PEREZ(V,A) 1.1 cm\S\2 PEREZ(V,D) 1.1 cm\S\2 LV V1 max PG 3.8 mmHg LV V1 mean PG 1.8 mmHg LV V1 max 98.0 cm/sec LV V1 mean 60.2 cm/sec LV V1 VTI 18.1 cm SV(LVOT) 56.0 ml SI(LVOT) 28.3 ml/m\S\2 TR max nilda 230.8 cm/sec
--- NOTE | 2017-05-08 18:20 | Progress Note ---
Subjective Date of Service: May 08, 2017. Subjective Pt evaluation today including: conversation w/ patient Pt reports feeling much improved. Has not been off of O2 today. She generally only uses it HS. Pt denies fever, SOB, chest pain, abd pain, n/v/c/d, LE pain or swelling. Tolerating PO without issue. ROS as noted above, otherwise neg. Problem List Medical Problems: (1) CHF (congestive heart failure) Status: Chronic (2) COPD (chronic obstructive pulmonary disease) Status: Acute (3) SOB (shortness of breath) Status: Acute Objective Vital Signs Date Time Temp Pulse Resp B/P (MAP) Pulse Ox O2 Delivery O2 Flow Rate FiO2 05/08/17 17:56 90 Room Air 05/08/17 16:00 Nasal Cannula 3.0 05/08/17 15:45 36.8 78 18 104/65 (78) 96 05/08/17 12:00 Nasal Cannula 3.0 05/08/17 11:12 36.4 83 18 101/60 (74) 97 3.0 05/08/17 08:00 Nasal Cannula 3.0 05/08/17 08:00 36.6 77 18 99/66 (77) 96 Nasal Cannula 3.0 05/08/17 07:28 82 16 97 Nasal Cannula 3.0 05/08/17 04:00 36.4 80 20 111/68 (82) 98 Nasal Cannula 3.0 05/08/17 04:00 Nasal Cannula 3.0 05/08/17 02:19 82 16 96 Nasal Cannula 3.0 05/08/17 02:09 96 Nasal Cannula 3.0 05/08/17 00:00 Nasal Cannula 3.0 05/07/17 23:39 36.8 82 20 109/67 (81) 96 Nasal Cannula 3.0 05/07/17 20:00 Nasal Cannula 3.0 05/07/17 19:33 36.5 76 18 117/66 (83) 93 Room Air 05/07/17 18:55 59 16 88 Nasal Cannula 1.0 Physical Exam Comments: General Appearance: WD/WN, no apparent distress Respiratory/Chest: normal breath sounds, no respiratory distress Cardiovascular: regular rate, rhythm, no edema Abdomen: non tender, soft Extremities: non-tender, no pedal edema Neurologic/Psychiatric: alert, normal mood/affect, oriented x 3 Skin: normal color, warm/dry Laboratory Results Last 24 Hours Test 05/08/17 05:20 Prothrombin Time 31.5 SECONDS Prothromb Time International Ratio 2.8 Sodium Level 143 mmol/L Potassium Level 4.0 mmol/L Chloride Level 106 mmol/L Carbon Dioxide Level 31 mmol/L Anion Gap 6.0 mmol/L Blood Urea Nitrogen 29 mg/dl Creatinine 1.40 mg/dl Est Creatinine Clear Calc Drug Dose 38.8 ml/min Estimated GFR () 43.1 Estimated GFR (Non- 37.2 BUN/Creatinine Ratio 20.7 Random Glucose 92 mg/dl Calcium Level 8.2 mg/dl Assessment and Plan 72 y/o F Hx AVR with mechanical valve following repair of an ascending AA, PAF, HTN, pacer due to sick sinus syndrome, likely history of CHF. Pt was admitted to [place] 04/25 for SOB, a productive cough and hemoptysis. She was treated for a multilobar pneumonia. She has been treated with both Augmentin and Doxycycline for an extended period. Despite complying with treatment, her cough may be worsening and she has become progressively SOB over the past 2 days. Initial imaging, labs, CXR are more consistent with CHF exacerbation than recurrent PNA. SOB - CXR, labs, exam are consistent with CHF exacerbation ECHO pending, likely acute systolic CHF Lasix 40mg IV BID decreased to 20mg IV QD given pt is lasix naive and feeling improved. Will transition to 20mg PO given elevated cr Continue to wean O2 Persistent cough - recent inpt PNA treatment - denies a history of smoking or underlying lung disease although Asthma is listed in records. Follows with herb in [place] and was planning for followup CT on 05/09 due to the possibility of a LLL mass. CT chest on hold given elevated cr. Can pursue this as outpt with pulmya once renal function is stable Acute renal failure: likely related to lasix use Monitor AF - INR is therapeutic - HR controlled - per records she was recently taken off Amiodarone Lisinopril and Metoprolol. 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 Per records from [place], this is a chronic finding. Full code - Cont Coumadin prophylaxis
[2017-05-08] MEDS: ROSUVASTATIN CALCIUM 20 MG TAB PO SCH (20:41)
[2017-05-08] MEDS: SERTRALINE HCL 100 MG TAB PO SCH (20:41)
[2017-05-08] MEDS: LISINOPRIL 20 MG TAB PO SCH (20:42)
[2017-05-09] VITALS (7 sets, daily range): BP systolic 95–125; BP diastolic 62–67; PULSE 72–87; TEMP 36.6–36.7; O2SAT 93–97
[2017-05-09] MEDS: ALBUT/IPRATROP 3MG/0.5MG NEB 3 ML VIAL INH SCH ×2 (01:35→07:17)
[2017-05-09 07:18] LABS: BUN/CREATININE RATIO 23.2 (10-20); CALCIUM 8.3 mg/dl (8.5-10.1); CREATININE 1.3 mg/dl (0.60-1.20); POTASSIUM 4.3 mmol/L (3.5-5.1)
[2017-05-09] MEDS: METOPROLOL SUCC 50MG EXT REL TAB PO SCH (08:01)
[2017-05-09] MEDS: ASPIRIN 81 MG ECTAB PO SCH (08:01)
[2017-05-09] MEDS: POTASSIUM CHLORIDE 20 MEQ TABCR PO SCH (08:03)
[2017-05-09] MEDS ORDERED: FUROSEMIDE 20 MG TAB PO SCH (09:00)
[2017-05-09] MEDS ORDERED: MCRK20 PO (11:45)
--- NOTE | 2017-05-09 11:48 | Discharge Instructions ---
Discharge Instructions Date of Service May 09, 2017. Admission Reason for Admission: Chf Exacerbation Discharge Discharge Diagnosis / Problem: CHF exacerbation Discharge Goals Goal(s): Decrease discomfort, Improve function, Increase independence Activity Recommendations Activity Limitations: resume your previous activity . Instructions / Follow-Up Instructions / Follow-Up If you start to feel short of breath, you can take an extra 1/2 tablet of lasix (furosemide). You should be seen by your doctor that day or the next day to determine if your permanent dosing needs changed moving forward. You should have your labs checked on 05/14/17. You should follow-up with your lung doctor after your labs to see when the CT scan of your lungs should be done. You should see Dr. Rose next week. Call your Primary Care doctor if any of the following symptoms or problems start or get worse: * Shortness of breath or difficulty breathing * Wake up at night short of breath * Chest pain * Cough * Swelling of your hands, feet, or legs * More fatigued or tired with your normal activity * Palpitations - sudden fast heart beats WEIGHT * Weigh yourself every morning after using the bathroom. * Use the same scale. * Wear the same amount of clothing. * Write your weight down on a chart. * Call your Primary Care doctor if you gain more than 2-3 pounds in 1-2 days. MEDICATIONS * Use this discharge instruction sheet for medication instructions. * Take your medications at the time your doctor ordered. * Do not skip a dose of your medicines. * If you miss a dose of medicine, take it as soon as possible, but DO NOT DOUBLE A DOSE. * Read your medicine information when you get home. * Know all of the side effects of your medicine. If in doubt, ask your pharmacist * Call your Primary Care doctor's office if you have any side effects. * Be sure all of your doctors know what medicine and herbs you take (including cold, flu, and herbal medicine). Take the following with you to your follow-up doctor appointments: * Weight Chart * Medication List * List of questions Do not drink excessive alcohol, beer or wine. Current Hospital Diet Patient's current hospital diet: AHA Diet (Heart Healthy) Discharge Diet Recommended Diet: Low Sodium Diet (2gm Na) Pending Studies Studies pending at discharge: no Medical Emergencies . Who to Call and When: Call 911 or go to the Emergency Room if: * If at any time you feel your situation is an emergency * You have tightness or pain in your chest that does not go away with rest or Nitroglycerin * You are very short of breath even with rest . Non-Emergent Contact Non-Emergency issues call your: Primary Care Provider, Worm Packer . . "Provider Documentation" section prepared by Olivia Pop. . VTE Core Measure Inpt VTE Proph given/why not?: Warfarin (Coumadin)
--- NOTE | 2017-05-09 11:54 | Discharge Summary ---
Discharge Summary Date of Service May 09, 2017. Discharge Summary Admission Date: May 07, 2017 at 01:34 Discharge Date: May 09, 2017 Discharge Disposition: Home Principal Diagnosis: CHF exacerbation Problems/Secondary Diagnoses: (1) CHF (congestive heart failure) Status: Chronic HTN Afib on coumadin s/p AV replacement s/p pacer for SSS Medication Reconciliation New Medications: Potassium Chloride (Klor-Con M20) 20 Meq Tabcr 20 MEQ PO DAILY for 30 Days, #30 TAB Continued Medications: Alendronate/Cholecalciferol (Fosamax+D 70MG/2800 Iu) 70 Mg Tab 1 TABLET PO WK TAKE DAILY ON SUNDAYS Aspirin (Aspirin) 81 Mg Chw 81 MG PO DAILY, 3 Refills Calcium Carbonate-Vitamin D (Calcium 600 + D) 1 Tab Tab 1 TAB PO AMHS Furosemide (Lasix) 40 Mg Tab 40 MG PO QAM, 5 Refills Lisinopril (Prinivil) 20 Mg Tab 20 MG PO HS, 5 Refills Metoprolol Succinate (Metoprolol Succinate ER) 50 Mg Tabcr 50 MG PO QAM Oxygen (Oxygen) Gas 3 LITERS NA HS Rosuvastatin Calcium (Crestor) 20 Mg Tab 20 MG PO HS, 5 Refills Sertraline Hcl (Zoloft) 100 Mg Tab 100 MG PO HS Warfarin Sodium (Warfarin Sodium) 4 Mg Tab MG PO DIRECTED, 1 Refill Discharge Exam Pt is doing well. No further SOB. Tolerating PO without issue. No LE swelling. Pt denies fever, chest pain, abd pain, n/v/c/d, LE pain. ROS as noted above, otherwise neg. Physical Exam: General Appearance: WD/WN, no apparent distress Respiratory/Chest: normal breath sounds, no respiratory distress Cardiovascular: regular rate, rhythm, no edema Abdomen / GI: non tender, soft Extremities: no calf tenderness, no pedal edema Neurologic/Psychiatric: alert, normal mood/affect, oriented x 3 Skin: normal color, warm/dry Hospital Course 72 y/o F Hx AVR with mechanical valve following repair of an ascending AA, PAF, HTN, pacer due to sick sinus syndrome, likely history of CHF. Pt was admitted to [place] 04/25 for SOB, a productive cough and hemoptysis. She was treated for a multilobar pneumonia. She has been treated with both Augmentin and Doxycycline for an extended period. Despite complying with treatment, her cough may be worsening and she has become progressively SOB over the past 2 days. Initial imaging, labs, CXR are more consistent with CHF exacerbation than recurrent PNA. SOB - CXR, labs, exam are consistent with CHF exacerbation ECHO with acute systolic CHF, EF 50-55% and moderate Lasix as above Persistent cough - recent inpt PNA treatment - denies a history of smoking or underlying lung disease although Asthma is listed in records. Follows with herb in [place] and was planning for followup CT on 05/09 due to the possibility of a LLL mass. CT chest on hold given elevated cr. Can pursue this as outpt with pulm once renal function is stable PRP next week Acute renal failure: likely related to lasix use and improving Monitor with PRP next week AF - INR is therapeutic - HR controlled - per records she was recently taken off Amiodarone Lisinopril and Metoprolol. 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 Per records from [place], this is a chronic finding. Total Time Spent: Greater than 30 minutes This includes examination of the patient, discharge planning, medication reconciliation, and communication with other providers. Discharge Instructions Please refer to the electronic Patient Visit Report (Discharge Instructions) for additional information. Follow-Up [facility] in 1-[address] Rose next week Additional Copies To Laina Rose M.D.
[2017-05-20] MEDS ORDERED: CALC-20 PO (00:25)
[2017-05-20] MEDS ORDERED: TPRSR/50 PO (06:59)
[2017-05-20] MEDS ORDERED: WARF-283 PO (06:59)
[2017-05-20] MEDS ORDERED: LISI20TA3 PO (06:59)
[2017-05-20] MEDS ORDERED: FSMD/70 PO (06:59)
[2017-05-20] MEDS ORDERED: ROSU20TA PO (06:59)
[2017-05-20] MEDS ORDERED: ASPI81CH2 PO (06:59)
[2017-05-20] MEDS ORDERED: FURO40TA3 PO (06:59)
[2017-05-20] MEDS ORDERED: SERT1TAB68 PO (07:02)
== END 2017-05-09 12:50 | disposition home health service (06) | DRG 292 ==
LOC: EDBD 21:56 → C.EDB 21:58 → C.MED 05-07 01:34 → ENRESERV 05-07 01:43
PROVIDERS: ADMIT Internal Medicine; ATTEND Family Medicine
DX: I11.0 Hypertensive heart disease with heart failure (principal); N17.9 Acute kidney failure, unspecified; I50.23 Acute on chronic systolic (congestive) heart failure; T50.1X5A Adverse effect of loop [high-ceiling] diuretics, initial encounter; R91.8 Other nonspecific abnormal finding of lung field; I48.0 Paroxysmal atrial fibrillation; I35.0 Nonrheumatic aortic (valve) stenosis; I71.4 Abdominal aortic aneurysm, without rupture; J45.909 Unspecified asthma, uncomplicated; E78.5 Hyperlipidemia, unspecified; Z79.899 Other long term (current) drug therapy; Z79.01 Long term (current) use of anticoagulants; Z79.82 Long term (current) use of aspirin; Z87.01 Personal history of pneumonia (recurrent); Z95.0 Presence of cardiac pacemaker; Z95.2 Presence of prosthetic heart valve

== ENCOUNTER → 2017-05-14 | Outpatient (CLI) | payer OTHER ==
[~2017-05-14] MED LIST changes: -ALBUAER INH; +ASPI81CH2 PO; +CALC-20 PO; -CALCTAB5 PO; -CMD6 PO; +FSMD/70 PO; +FURO40TA3 PO; +IPRASOL4 INH; +LEVO1TAB33 PO; +LISI20TA3 PO; +MCRK20 PO; +OXGN; -OXYM0.0592 INH; +POTA20TA16 PO; +ROSU20TA PO; +SERT1TAB68 PO; +TPRSR/50 PO; +WARF-283 PO
[2017-05-14 17:58] LABS: BASO % 0.1 %; BASO ABS # 0.01 K/uL (0-0.2); COMPLETE YES; EOS % 3.4 %; HEMATOCRIT 39.2 % (37-47); IG% 0.3 %; LYMPH % 9.4 %; LYMPH ABS # 0.67 K/uL (1.2-3.4); MEAN CELL VOLUME 93.1 fL (80-100); MEAN CORPUSCULAR HEMOGLOBIN 28.3 pg (25-34); MEAN CORPUSCULAR HGB CONC 30.4 g/dl (32-36); MEAN PLATELET VOLUME 12.7 fL (7.4-10.4); MONO % 9.9 %; NEUT % 76.9 %; PLATELET COUNT 170 K/uL (130-400); RED BLOOD COUNT 4.21 M/uL (4.2-5.4); WHITE BLOOD COUNT 7.16 K/uL (4.8-10.8)
[2017-05-14 18:05] LABS: INR 1.5 (0.9-1.1); PROTHROMBIN TIME (PATIENT) 16.4 SECONDS (9.0-12.0)
[2017-05-14 18:37] LABS: BLOOD UREA NITROGEN 32 mg/dl (7-18); BUN/CREATININE RATIO 21.5 (10-20); CARBON DIOXIDE 29 mmol/L (21-32); CHLORIDE 103 mmol/L (98-107); GLUCOSE 99 mg/dl (70-99); POTASSIUM 4.7 mmol/L (3.5-5.1); SODIUM 140 mmol/L (136-145)
[2017-05-14 18:38] LABS: PHOSPHORUS 3.3 mg/dl (2.5-4.9)
[2017-05-14 19:07] LABS: CALCIUM 9.1 mg/dl (8.5-10.1)
== END | disposition home or self-care (01) ==
LOC: C.LABMFLN 14:55
PROVIDERS: ATTEND Family Medicine
DX: I50.9 Heart failure, unspecified (principal); Z95.2 Presence of prosthetic heart valve

== ENCOUNTER 2017-05-20 14:07 | Inpatient (IN) | payer OTHER ==
[~2017-05-20] VITALS: Ht 149.9 cm; Wt 104.3 kg
[~2017-05-20 14:07] MED LIST changes: -IPRASOL4 INH; -LEVO1TAB33 PO; -POTA20TA16 PO
[2017-05-20] MEDS ORDERED: ALBUT/IPRATROP 3MG/0.5MG NEB 3 ML VIAL INH STA (14:33)
--- NOTE | 2017-05-20 15:04 | DIAGNOSTIC IMAGING REPORT ---
SINGLE VIEW CHEST CLINICAL HISTORY: Dyspnea. FINDINGS: An AP, portable, upright chest radiograph is compared to study dated 05/06/2017. The examination is degraded by portable technique, large body habitus, and patient rotation. A 2-lead cardiac pacemaker is unchanged in position. The heart is enlarged. There is pulmonary vascular congestion and interstitial edema. Trace pleural effusions are suspected. Linear atelectasis versus scarring is noted in both lungs. No pneumothorax is seen. The skeletal structures are osteopenic. The bony thorax is grossly intact. Surgical clips are noted in the right axilla. IMPRESSION: 1. Cardiomegaly and cardiac pacemaker with evidence of congestive failure and interstitial edema. This is similar in appearance to the 05/06/2017 examination. 2. Trace pleural effusions. Electronically signed by: Steve Martini M.D. 05/20/2017 3:03 PM Dictated Date/Time: 05/20/2017 3:01 PM
[2017-05-20 15:35] LABS: BASO % 0.1 %; BASO ABS # 0.01 K/uL (0-0.2); COMPLETE YES; EOS % 1.4 %; HEMATOCRIT 39.2 % (37-47); IG% 0.3 %; LYMPH % 7.5 %; LYMPH ABS # 0.54 K/uL (1.2-3.4); MEAN CELL VOLUME 91.8 fL (80-100); MEAN CORPUSCULAR HEMOGLOBIN 27.4 pg (25-34); MEAN CORPUSCULAR HGB CONC 29.8 g/dl (32-36); MEAN PLATELET VOLUME 12.2 fL (7.4-10.4); MONO % 3.9 %; NEUT % 86.8 %; PLATELET COUNT 203 K/uL (130-400); RED BLOOD COUNT 4.27 M/uL (4.2-5.4); WHITE BLOOD COUNT 7.16 K/uL (4.8-10.8)
[2017-05-20] MEDS ORDERED: FUROSEMIDE 40 MG/4 ML VIAL IV STA (15:47)
[2017-05-20 15:56] LABS: INR 3.2 (0.9-1.1); PARTIAL THROMBOPLASTIN RATIO 1.7; PROTHROMBIN TIME (PATIENT) 36.3 SECONDS (9.0-12.0)
[2017-05-20 16:01] LABS: BUN/CREATININE RATIO 14.4 (10-20); CALCIUM 8.1 mg/dl (8.5-10.1); CREATININE 4.2 mg/dl (0.60-1.20); MAGNESIUM 2.6 mg/dl (1.8-2.4); POTASSIUM 5.2 mmol/L (3.5-5.1)
[2017-05-20] MEDS ORDERED: POTA20TA16 PO (16:05)
[2017-05-20 16:09] LABS: ALB/GLOB RATIO 0.8 (0.9-2); THYROID STIMULATING HORMONE 1.74 uIu/ml (0.300-4.500)
[2017-05-20] MEDS ORDERED: IPRASOL4 INH (16:09)
[2017-05-20] MEDS ORDERED: LEVO1TAB33 PO (16:09)
--- NOTE | 2017-05-20 17:57 | EMERGENCY ROOM VISIT NOTE ---
History Report prepared by Aleta: Clinton Diego Under the Supervision of: Dr. Steve Olivarez M.D. First contact with patient: 14:27 Chief Complaint: SHORTNESS OF BREATH Stated Complaint: SOB Nursing Triage Summary: Shortness of breath, dyspnea on exertion, paroxysmal nocturnal dyspnea, orthopnea. Has been having these problems since around Easter of this year. Was previously diagnosed with bilateral pneumonia approximately 1 month [facility]. Finished prednisone therapy about one week ago. Has O2 at home for nocturnal hypoxia, but has been using it continuously recently. Uses 3L O2 via nasal cannula at home at baseline. History of Present Illness The patient is a 72 year old female who presents to the Emergency Room with complaints of persistent shortness of breath beginning yesterday. She was diagnosed with bilateral pneumonia about a month ago and states that she finished her antibiotics and prednisone treatments last week. She states that her symptoms were improving until they worsened again today. The patient also complains of weakness, back pain, and productive cough. She denies any chest pain, abdominal pain, fevers, chills, vomiting, or diarrhea. She wears 3 L of oxygen by nasal canula at home. The patient was seen by her technical specialist cytology five days ago and received a CT, but has not received the results. She has no history of GA. She is on Coumadin for an artificial heart valve which was placed 12 years ago. She denies any recent falls or trauma. Source of History: patient Onset: Yesterday Quality: other (shortness of breath) Timing: other (persistent) Associated Symptoms: + cough (productive), + back pain, + weakness, No fevers, No chills, No chest pain, No vomiting, No abdominal pain, No diarrhea Review of Systems See HPI for pertinent positives & negatives. A total of 10 systems reviewed and were otherwise negative. Past Medical & Surgical Medical Problems: (1) Acute and chronic respiratory failure with hypoxia (2) Asthma (3) CHF (congestive heart failure) (4) CHF exacerbation (5) HTN (hypertension) (6) Hyperlipidemia (7) Pacemaker Surgical Problems: (1) Mechanical heart valve present Family History No pertinent family history stated. Social History Smoking Status: Never Smoker Housing Status: lives with family Occupation Status: retired Current/Historical Medications Scheduled Alendronate/Cholecalciferol (Fosamax+D 70MG/2800 Iu), 1 TABLET PO WK Aspirin (Aspirin), 81 MG PO DAILY Calcium Carbonate-Vitamin D (Calcium 600 + D), 1 TAB PO AMHS Furosemide (Lasix), 40 MG PO QAM Ipratropium-Albuterol (Duoneb), 1 TREATMENT INH PRN UD Levofloxacin (Levaquin), 250 MG PO DAILY Lisinopril (Prinivil), 20 MG PO HS Metoprolol Succinate (Metoprolol Succinate ER), 50 MG PO QAM Potassium Ext Rel (Klor-Con), 20 MEQ PO HS Rosuvastatin Calcium (Crestor), 20 MG PO HS Sertraline Hcl (Zoloft), 100 MG PO HS Warfarin Sodium (Warfarin Sodium), 6 MG PO DAILY Allergies Coded Allergies: Digoxin (Verified Adverse Reaction, Intermediate, N/V, 05/20/17) Morphine (Verified Adverse Reaction, Intermediate, HALLUCINATIONS AND AGGRESSION, 05/20/17) Physical Exam Vital Signs Date Time Temp Pulse Resp B/P (MAP) Pulse Ox O2 Delivery O2 Flow Rate FiO2 05/20/17 18:07 72 23 93 05/20/17 18:02 97/50 05/20/17 17:52 72 20 93 05/20/17 17:37 72 22 93 05/20/17 17:22 75 19 93 05/20/17 17:07 71 27 94 05/20/17 17:02 110/69 05/20/17 16:52 77 94 05/20/17 16:37 70 22 93 05/20/17 16:22 66 24 93 05/20/17 16:07 76 25 93 05/20/17 15:56 123/53 05/20/17 15:55 74 20 123/53 94 Nasal Cannula 2.0 05/20/17 15:52 70 17 93 05/20/17 15:37 69 19 91 05/20/17 15:36 79/33 05/20/17 15:22 74 19 92 05/20/17 15:21 96 Nasal Cannula 2.0 05/20/17 15:21 88 Room Air 05/20/17 15:07 72 23 109/46 05/20/17 14:52 72 23 05/20/17 14:37 68 23 91 05/20/17 14:25 67 05/20/17 14:20 94 Nasal Cannula 4.0 05/20/17 14:14 36.9 72 20 109/46 85 Room Air 05/20/17 14:14 85 Room Air 05/20/17 14:13 109/46 Physical Exam GENERAL: Patient is in no acute distress. HEENT: No acute trauma, normocephalic atraumatic, mucous membranes moist, no nasal congestion, no scleral icterus. NECK: No stridor, no adenopathy, no meningismus, trachea is midline. LUNGS: Scattered wheezing. Breath sounds equal. No rhonchi. No respiratory distress. HEART: 2/6 systolic murmur with a metallic click. Slightly irregular rhythm with a normal rate. ABDOMEN: Soft, nontender, bowel sounds positive, no hernias, no peritonitis. EXTREMITIES: No cyanosis or edema, full range of motion of all the joints without pain or difficulty, no signs for acute trauma. NEUROLOGIC: Oriented x 3, no acute motor or sensory deficits, no focal weakness. SKIN: No rash, no jaundice, no diaphoresis. Medical Decision & Procedures ER Provider Diagnostic Interpretation: X-ray results as stated below per interpretation by me and the radiologist: ] SINGLE VIEW CHEST FINDINGS: An AP, portable, upright chest radiograph is compared to study dated 05/06/2017. The examination is degraded by portable technique, large body habitus, and patient rotation. A 2-lead cardiac pacemaker is unchanged in position. The heart is enlarged. There is pulmonary vascular congestion and interstitial edema. Trace pleural effusions are suspected. Linear atelectasis versus scarring is noted in both lungs. No pneumothorax is seen. The skeletal structures are osteopenic. The bony thorax is grossly intact. Surgical clips are noted in the right axilla. IMPRESSION: 1. Cardiomegaly and cardiac pacemaker with evidence of congestive failure and interstitial edema. This is similar in appearance to the 05/06/2017 examination. 2. Trace pleural effusions. Electronically signed by: Steve Martini M.D. CT results [facility] from [facility]. CT SINUSES WITHOUT CONTRAST 05/17/2017 IMPRESSION: 1. Paranasal sinuses are clear. 2. Leftward deviation of the nasal deviation of the nasal septum with bony spur abutting the left inferior turbinate. CT THORAX WITHOUT CONTRAST 05/17/2017 IMPRESSION: Pleural based mostly ill-defined nodule in the left lower lobe appears slightly decreased in size compared with prior study however, finding is concerning for neoplastic and less likely infectious process. Small right pleural effusion with bilateral pleural reaction right greater than left. Aneurysmal dilatation of the ascending aorta with plaque formation and mural thrombus not significant changes in size/appearance when compared with prior study. Follow-up CT evaluation with contrast enhancement may be performed to evaluate for dissection if clinically indicated. Stable cardiomegaly. Significant atherosclerotic changes in the aorta and coronary arteries. Multiple scattered calcific densities in the liver and spleen likely secondary to prior granulomatous disease. Moderate gallstones/gallbladder sludge within the dependent gallbladder neck. Enlarged left adrenal gland may be secondary to adrenal adenoma versus neoplasm, clinical correlation is suggested. Ultrasound of the abdomen may be obtained for further evaluation if clinically indicated. Laboratory Results 05/20/17 15:10 Red Blood Count 4.27, Mean Corpuscular Volume 91.8, Mean Corpuscular Hemoglobin 27.4, Mean Corpuscular Hemoglobin Concent 29.8, Mean Platelet Volume 12.2, Neutrophils (%) (Auto) 86.8, Lymphocytes (%) (Auto) 7.5, Monocytes (%) (Auto) 3.9, Eosinophils (%) (Auto) 1.4, Basophils (%) (Auto) 0.1, Neutrophils # (Auto) 6.21, Lymphocytes # (Auto) 0.54, Monocytes # (Auto) 0.28, Eosinophils # (Auto) 0.10, Basophils # (Auto) 0.01 05/20/17 15:10 Test 05/20/17 15:10 White Blood Count 7.16 K/uL (4.8-10.8) Red Blood Count 4.27 M/uL (4.2-5.4) Hemoglobin 11.7 g/dL (12.0-16.0) Hematocrit 39.2 % (37-47) Mean Corpuscular Volume 91.8 fL (80-100) Mean Corpuscular Hemoglobin 27.4 pg (25-34) Mean Corpuscular Hemoglobin Concent 29.8 g/dl (32-36) Platelet Count 203 K/uL (130-400) Mean Platelet Volume 12.2 fL (7.4-10.4) Neutrophils (%) (Auto) 86.8 % Lymphocytes (%) (Auto) 7.5 % Monocytes (%) (Auto) 3.9 % Eosinophils (%) (Auto) 1.4 % Basophils (%) (Auto) 0.1 % Neutrophils # (Auto) 6.21 K/uL (1.4-6.5) Lymphocytes # (Auto) 0.54 K/uL (1.2-3.4) Monocytes # (Auto) 0.28 K/uL (0.11-0.59) Eosinophils # (Auto) 0.10 K/uL (0-0.5) Basophils # (Auto) 0.01 K/uL (0-0.2) RDW Standard Deviation 49.6 fL (36.4-46.3) RDW Coefficient of Variation 14.6 % (11.5-14.5) Immature Granulocyte % (Auto) 0.3 % Immature Granulocyte # (Auto) 0.02 K/uL (0.00-0.02) Prothrombin Time 36.3 SECONDS (9.0-12.0) Prothromb Time International Ratio 3.2 (0.9-1.1) Activated Partial Thromboplast Time 44.5 SECONDS (21.0-31.0) Partial Thromboplastin Ratio 1.7 Anion Gap 8.0 mmol/L (3-11) Est Creatinine Clear Calc Drug Dose 13.0 ml/min Estimated GFR () 11.4 Estimated GFR (Non- 9.9 BUN/Creatinine Ratio 14.4 (10-20) Calcium Level 8.1 mg/dl (8.5-10.1) Magnesium Level 2.6 mg/dl (1.8-2.4) Total Bilirubin 0.3 mg/dl (0.2-1) Aspartate Amino Transf (AST/SGOT) 13 U/L (15-37) Alanine Aminotransferase (ALT/SGPT) 10 U/L (12-78) Alkaline Phosphatase 80 U/L (45-117) Troponin I 0.045 ng/ml (0-0.045) Pro-B-Type Natriuretic Peptide 3433 pg/ml (0-900) Total Protein 6.3 gm/dl (6.4-8.2) Albumin 2.7 gm/dl (3.4-5.0) Globulin 3.6 gm/dl (2.5-4.0) Albumin/Globulin Ratio 0.8 (0.9-2) Thyroid Stimulating Hormone (TSH) 1.740 uIu/ml (0.300-4.500) Laboratory results reviewed by me. Medications Administered Medications (Trade) Dose Ordered Sig/Jenifer Route Start Time Stop Time Status Last Admin Dose Admin Albuterol/ Ipratropium (Duoneb) 3 ml NOW STAT INH 05/20/17 14:33 05/20/17 14:38 DC 05/20/17 15:14 3 ML Furosemide (Lasix Inj) 40 mg NOW STAT IV 05/20/17 15:47 05/20/17 15:49 DC 05/20/17 15:57 40 MG Sodium Polystyrene Sulfonate (Kayexalate Susp) 30 gm NOW STAT PO 05/20/17 18:28 05/20/17 18:38 DC 05/20/17 18:47 30 GM ECG Indication: SOB/dyspnea Rate (beats per minute): 69 Rhythm: other (Ventricular pacemaker with occasional natural beats and underlying A-fib) Findings: LBBB, other (No obvious ischemia) ED Course 1430: The patient was evaluated in room C2B. A complete history and physical exam was performed. 1433: Ordered DuoNeb 3 mL INH. 1547: Ordered Lasix Inj 40 mg IV. 1638: Upon reexamination the patient is resting comfortably. I discussed results and treatment plan with the patient. She verbalizes agreement and understanding. The patient will be evaluated for further management. Medical Decision The patient is a 72 year old female who presents to the ED with complaints of shortness of breath. Differential diagnoses considered include pneumonia, bronchitis, CHF, anemia, electrolyte imbalance, PE, valve insufficiency, and GA. Blood Pressure Screening: Patient was found to have normal blood pressure on screening and does not require follow-up. Medication Reconciliation: I attest that I have personally reviewed the patient' s current medication list. There is no leukocytosis or concerning anemia. Renal panel testing shows acute renal failure and a mildly elevated potassium. No hepatitis. Chest x-ray shows cardiomegaly and CHF. There was no pneumothorax, no obvious pneumonia. There is no hepatitis. BNP was elevated consistent with fluid overload/CHF. INR was elevated consistent with her Coumadin use. Blood cultures are pending. She was given a DuoNeb, IV Lasix. She is resting comfortably. The patient appears to be in heart failure and acute renal failure. She has been short of breath, admission/observation is warranted. I did speak to the patient and to case management. The on-call hospitalist was consulted. Consults Time Called: [phone] Consulting Physician: Dr. Usman PHAM Returned Call: [phone] Discussed the patient's case. The patient will be evaluated for further management. Impression Primary Impression: SOB (shortness of breath) Additional Impressions: CHF (congestive heart failure) Acute renal failure Scribe Attestation The scribe's documentation has been prepared under my direction and personally reviewed by me in its entirety. I confirm that the note above accurately reflects all work, treatment, procedures, and medical decision making performed by me. Departure Information Dispostion Being Evaluated By Hospitalist Referrals Laina Rose M.D. (PCP) Patient Instructions My [facility] Problem Qualifiers
[2017-05-20] MEDS ORDERED: LEVALBUTEROL/IPRATROPIUM NEB INH SCH (18:15)
[2017-05-20] MEDS ORDERED: SODIUM CHLORIDE 0.9% 1000ML 1,000 ML IV SCH (18:15)
[2017-05-20] MEDS ORDERED: SODIUM POLYST. SULF SUSP 15G/60ML PO STA (18:28)
--- NOTE | 2017-05-20 18:28 | History and Physical ---
History & Physical Date & Time of Service: May 20, 2017 at 17:30 Chief Complaint: SOB Primary Care Physician: Laina Rose M.D. History of Present Illness Source: patient, family, clinic records, hospital records This patient is a pleasant 72-year-old female that presents emergency department complaining of continued shortness of breath, productive cough and fever. This is reportedly been going on since . The patient was admitted to [facility] on 04/25 and treated for community-acquired pneumonia. She did require intubation. The patient finished a course of doxycycline and Augmentin with minimal improvement. She saw her primary care physician on 05/14. Her complaint at that visit was productive cough and fever. She was put on Levaquin 500 mg daily. The patient was found to be hypotensive in the office with a blood pressure of 80s/40s. Blood work was also performed. It sounds like her renal function was abnormal, because the patient was instructed to cut her dose of Levaquin in half and also hold her Lasix for 1 day. The patient is typically takes Lasix 40 mg daily. The patient was admitted to [facility] on 05/07 through 05/09 for what was thought to be a CHF exacerbation. She was treated with IV Lasix. The patient reports that she temporarily felt better in the hospital, but her symptoms returned after discharge. A CT scan was performed at [facility] on 05/17 to follow up a pulmonary nodule that was noted on her previous admission. It shows an ill-defined nodule in the left lower lobe that is slightly decreased in size when compared to previous study. Findings are concerning for a neoplastic or possibly infectious process. Small bilateral pleural effusions were also noted. Of note, during her [facility] admission, the patient was put on 3 L of oxygen per nasal cannula at night for continued desaturations. 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 CHF EF 50-55%, moderate echo on 05/07 History of DVT Hypertension Depression Hyperlipidemia Surgical Problems: (1) Mechanical heart valve present Status: Chronic Status post appendectomy, pericardial window, hysterectomy Family History Family history of coronary artery disease Social History Smoking Status: Never Smoker Alcohol Use: none Marital Status: Housing status: lives with family Occupational Status: retired Allergies Coded Allergies: Morphine (Verified Allergy, Severe, HALLUCINATIONS AND AGGRESSION, 05/07/17) Digoxin (Verified Adverse Reaction, Severe, N/V, 05/07/17) Home Medications Scheduled Alendronate/Cholecalciferol (Fosamax+D 70MG/2800 Iu), 1 TABLET PO WK Aspirin (Aspirin), 81 MG PO DAILY Calcium Carbonate-Vitamin D (Calcium 600 + D), 1 TAB PO AMHS Furosemide (Lasix), 40 MG PO QAM Ipratropium-Albuterol (Duoneb), 1 TREATMENT INH PRN UD Levofloxacin (Levaquin), 250 MG PO DAILY Lisinopril (Prinivil), 20 MG PO HS Metoprolol Succinate (Metoprolol Succinate ER), 50 MG PO QAM Potassium Ext Rel (Klor-Con), 20 MEQ PO HS Rosuvastatin Calcium (Crestor), 20 MG PO HS Sertraline Hcl (Zoloft), 100 MG PO HS Warfarin Sodium (Warfarin Sodium), 6 MG PO DAILY Review of Systems 10 system review performed and negative unless noted in HPI or below Physical Exam Vital Signs Date Time Temp Pulse Resp B/P (MAP) Pulse Ox O2 Delivery O2 Flow Rate FiO2 05/20/17 15:55 74 20 123/53 94 Nasal Cannula 2.0 05/20/17 15:21 96 Nasal Cannula 2.0 05/20/17 15:21 88 Room Air 05/20/17 14:25 67 05/20/17 14:20 94 Nasal Cannula 4.0 05/20/17 14:14 36.9 72 20 109/46 85 Room Air 05/20/17 14:14 85 Room Air General Appearance: no apparent distress Head: normocephalic Eyes: EOMI ENT: + pertinent finding (oral mucosa fairly moist) Neck: no adenopathy, no JVD Respiratory/Chest: lungs clear Cardiovascular: + pertinent finding (occasionally irregular. Systolic click noted.) Abdomen/GI: normal bowel sounds, non tender, soft Extremities/Musculoskelatal: no calf tenderness, no pedal edema Neurologic/Psych: no motor/sensory deficits, oriented x 3 Skin: warm/dry Diagnostics Laboratory Results Results Past 24 Hours Test 05/20/17 15:10 Range/Units White Blood Count 7.16 4.8-10.8 K/uL Red Blood Count 4.27 4.2-5.4 M/uL Hemoglobin 11.7 12.0-16.0 g/dL Hematocrit 39.2 37-47 % Mean Corpuscular Volume 91.8 80-100 fL Mean Corpuscular Hemoglobin 27.4 25-34 pg Mean Corpuscular Hemoglobin Concent 29.8 32-36 g/dl Platelet Count 203 130-400 K/uL Mean Platelet Volume 12.2 7.4-10.4 fL Neutrophils (%) (Auto) 86.8 % Lymphocytes (%) (Auto) 7.5 % Monocytes (%) (Auto) 3.9 % Eosinophils (%) (Auto) 1.4 % Basophils (%) (Auto) 0.1 % Neutrophils # (Auto) 6.21 1.4-6.5 K/uL Lymphocytes # (Auto) 0.54 1.2-3.4 K/uL Monocytes # (Auto) 0.28 0.11-0.59 K/uL Eosinophils # (Auto) 0.10 0-0.5 K/uL Basophils # (Auto) 0.01 0-0.2 K/uL RDW Standard Deviation 49.6 36.4-46.3 fL RDW Coefficient of Variation 14.6 11.5-14.5 % Immature Granulocyte % (Auto) 0.3 % Immature Granulocyte # (Auto) 0.02 0.00-0.02 K/uL Prothrombin Time 36.3 9.0-12.0 SECONDS Prothromb Time International Ratio 3.2 0.9-1.1 Activated Partial Thromboplast Time 44.5 21.0-31.0 SECONDS Partial Thromboplastin Ratio 1.7 Sodium Level 139 136-145 mmol/L Potassium Level 5.2 3.5-5.1 mmol/L Chloride Level 103 98-107 mmol/L Carbon Dioxide Level 28 21-32 mmol/L Anion Gap 8.0 3-11 mmol/L Blood Urea Nitrogen 61 7-18 mg/dl Creatinine 4.20 0.60-1.20 mg/dl Est Creatinine Clear Calc Drug Dose 13.0 ml/min Estimated GFR () 11.4 Estimated GFR (Non- 9.9 BUN/Creatinine Ratio 14.4 10-20 Random Glucose 109 70-99 mg/dl Calcium Level 8.1 8.5-10.1 mg/dl Magnesium Level 2.6 1.8-2.4 mg/dl Total Bilirubin 0.3 0.2-1 mg/dl Aspartate Amino Transf (AST/SGOT) 13 15-37 U/L Alanine Aminotransferase (ALT/SGPT) 10 12-78 U/L Alkaline Phosphatase 80 45-117 U/L Troponin I 0.045 0-0.045 ng/ml Pro-B-Type Natriuretic Peptide 3433 0-900 pg/ml Total Protein 6.3 6.4-8.2 gm/dl Albumin 2.7 3.4-5.0 gm/dl Globulin 3.6 2.5-4.0 gm/dl Albumin/Globulin Ratio 0.8 0.9-2 Thyroid Stimulating Hormone (TSH) 1.740 0.300-4.500 uIu/ml Microbiology Results 05/20/17 Blood Culture, Received Pending 05/20/17 Blood Culture, Received Pending Diagnostic Radiology Patient Name: JAGDEEP VILLA Unit Number: [id number] Dictated: 05/20/171500 Transcribed: 05/20/171500 EV Printed Date/Time: [~ rep prt dt]/[~ rep prt tm] [~ rep ct labl] - [~ rep ct ivnm] [facility] [place] [address] Dictated: 05/20/171500 Transcribed: 05/20/171500 EV Printed Date/Time: [~ rep prt dt]/[~ rep prt tm] [~ rep ct labl] - [~ rep ct ivnm] Patient: JAGDEEP VILLA Address1: [facility] Rec: [id number] Address2: Acct ID: [id number] [facility] Zip: [place] [address] Date: 1945 Sex: F Room/Bed: Ref Phy: Laina Rose M.D. SC: RASHEL Att Phy: Report #: [id number] Dania Phy: Laina Rose M.D. Test: CXR1P Admit Phy: Mass Spec: CARLOS Interpreting Phy: Steve Martini M.D. Diagnosis: SOB Ordering Phy: Steve Olivarez M.D. Service Date: 05/20/17 Admit Date: 05/20/17 MNE: [id number] CONF: DICTATED BY: Steve Martini M.D.]] CC: Steve Olivarez M.D. Kolonich, Kimberly, M.D. Endcc: [~ rep ct add3]] SINGLE VIEW CHEST CLINICAL HISTORY: Dyspnea. FINDINGS: An AP, portable, upright chest radiograph is compared to study dated 05/06/2017. The examination is degraded by portable technique, large body habitus, and patient rotation. A 2-lead cardiac pacemaker is unchanged in position. The heart is enlarged. There is pulmonary vascular congestion and interstitial edema. Trace pleural effusions are suspected. Linear atelectasis versus scarring is noted in both lungs. No pneumothorax is seen. The skeletal structures are osteopenic. The bony thorax is grossly intact. Surgical clips are noted in the right axilla. IMPRESSION: 1. Cardiomegaly and cardiac pacemaker with evidence of congestive failure and interstitial edema. This is similar in appearance to the 05/06/2017 examination. 2. Trace pleural effusions. Electronically signed by: Steve Martini M.D. 05/20/2017 3:03 PM Dictated Date/Time: 05/20/2017 3:01 PM The status of this report is Signed. Draft = Not yet reviewed or approved by Radiologist. Signed = Reviewed and approved by Radiologist. <AttendingPhy></AttendingPhy> <FamilyPhy>Laina Rose M.D.</FamilyPhy> < PrimaryPhy>Laina Rose M.D.</PrimaryPhy> <UnitNumber>[id number]</ UnitNumber> <VisitNumber>[id number]</VisitNumber> <PatientName>EDWINAJodiJAGDEEP< /PatientName> <DateOfBirth>1945</DateOfBirth> <Location>[facility]</Location> < ServiceDate>05/20/17</ServiceDate> <MNE>ESINDI</MNE> <OrderingPhy>Steve Olivarez M.D.</OrderingPhy> <OrderingPhyMNE>f rep ord dr gallardo</OrderingPhyMNE> < DictatingPhyMNE>f rep dict dr gallardo</DictatingPhyMNE> <CCListMNE>f rep ct sami</ CCListMNE> <AdmittingPhyMNE>f pt admit dr gallardo</AdmittingPhyMNE> <AttendingPhyMNE >f pt attend dr gallardo</AttendingPhyMNE> <ConsultingPhyMNE>f pt consult dr gallardo</ConsultingPhyMNE> <FamilyPhyMNE>f pt fam dr gallardo</FamilyPhyMNE> <OtherPhyMNE>f pt other dr gallardo</OtherPhyMNE> < PrimaryPhyMNE>f pt prim care dr gallardo</PrimaryPhyMNE> <ReferringPhyMNE>f pt referring dr gallardo</ReferringPhyMNE> EKG Ventricular paced rhythm with an underlying A. fib Left bundle branch block Rate 69 bpm Impression Assessment and Plan This patient is a 72-year-old female presents emergency department with complaints of chronic shortness of breath, productive cough and intermittent fever. Previously treated for community-acquired pneumonia which required intubation at [facility]. She has been on multiple antibiotics ( Augmentin, doxycycline and most recently Levaquin) with minimal improvement. Now found to be in acute renal failure Acute on chronic respiratory failure-? chronic infectious process vs other etiology -hold off on ABX for now given ARF -duonebs scheduled every 8 hrs -pulmonary consult -continuous pulse ox ARF-possibly prerenal given hypotension documented in the office last week. Also element of ATN definitely possible with multiple ABX -check urine lytes, creatinine -check FENA -very gentle IVF -insert sebastian -stop lisinopril -renal US Hx A fib/hx AVR-mechanical -cut coumadin dose in half to 3 mg daily -change metoprolol succ to lopressor 12.5 mg po BID -hold lasix/crestor Depression -cut Sertraline dose in half to 50 mg daily DVT prophylaxis -Heparin 5000 u subQ BID -TEDS, SCDs CODE STATUS -LEVEL I FULL CODE I personally and independently interviewed and examined the patient I reviewed labs and imaging I agree with above mentioned physical exam, History and ROS I discussed and formulated the assessment and plan with Mrs. King 72 years old female with multiple hospital admission since [facility] for cough/ pneumonia recently diagnosed with CHF and started on lasix and ACEI last visit to her PCP she was hypotensive presented today with hypotension/ZARIA also still have the cough ROS aside from what is mentioned above, the rest of ROS is negative Physical exam; dry mucous membrane, decrease air entry both lungs Assessment: ZARIA, likely multifactorial, hypotension, ACEI, lasix hyperkalemia cough suspicious lesion in CT lung HTN, currently hypotensive obesity Plan: one dose kayexalate repeat potassium in 4 hours very careful IVF hydration nephrology consult hold all nephrotoxic hold blood pressure meds renal US sebastian Level of Care Telemetry Resuscitation Status FULL RESUSCITATION VTE Prophylaxis VTE Risk Assessment Done? Y/N: Yes Risk Level: Low Given or contraindicated: Unfractionated heparin SQ, T.E.D. Stockings, SCD's
[2017-05-20] MEDS ORDERED: ONDANSETRON INJ 2 MG/ML 2 ML VIAL IV PRN (18:30)
[2017-05-20] MEDS ORDERED: ACETAMINOPHEN 325 MG TAB PO PRN (18:30)
[2017-05-20 18:34] VITALS: O2SAT 93; Ht 149.9 cm; Wt 104.3 kg
[2017-05-20 20:06] VITALS: BP 102/56; PULSE 77; TEMP 36.7; O2SAT 92
[2017-05-20] MEDS ORDERED: HEPARIN SOD 5000 UNIT/0.5 ML CARP SQ SCH (21:00)
[2017-05-20] MEDS: SERTRALINE HCL 100 MG TAB PO SCH (22:48)
[2017-05-20] MEDS: METOPROLOL TARTRATE 25 MG TAB PO SCH (22:48)
[2017-05-20 23:07] LABS: BUN/CREATININE RATIO 15.9 (10-20); CALCIUM 8.2 mg/dl (8.5-10.1); POTASSIUM 5.1 mmol/L (3.5-5.1)
[2017-05-20 23:09] VITALS: BP 109/64; PULSE 71; TEMP 36.8; O2SAT 93
[2017-05-20 23:22] VITALS: PULSE 71; O2SAT 93
[2017-05-20] MEDS: LEVALBUTEROL 1.25MG/0.5ML NEB INH SCH (23:22)
[2017-05-20] MEDS: IPRATROPIUM BROMIDE NEB SOLN 0.02% 2.5 ML VIAL INH SCH (23:22)
[2017-05-21] VITALS (10 sets, daily range): BP systolic 102–123; BP diastolic 54–72; PULSE 62–82; TEMP 36.3–36.9; O2SAT 93–97
--- NOTE | 2017-05-21 06:54 | DIAGNOSTIC IMAGING REPORT ---
Renal arterial Doppler DUPLEX RENAL ARTERY CLINICAL HISTORY: ARF renal insufficiency TECHNIQUE: Arterial Doppler COMPARISON STUDY: None FINDINGS: Normal arterial Doppler IMPRESSION: Normal arterial Doppler. No evidence for a significant stenotic process. Electronically signed by: Armin Chowdary M.D. 05/21/2017 6:53 AM Dictated Date/Time: 05/21/2017 6:52 AM
[2017-05-21 07:15] LABS: COMPLETE YES; HEMATOCRIT 34.3 % (37-47); IG% 0.3 %; LYMPH % 7.4 %; LYMPH ABS # 0.44 K/uL (1.2-3.4); MEAN CELL VOLUME 91.2 fL (80-100); MEAN CORPUSCULAR HEMOGLOBIN 28.5 pg (25-34); MEAN CORPUSCULAR HGB CONC 31.2 g/dl (32-36); MEAN PLATELET VOLUME 11.7 fL (7.4-10.4); MONO % 7.4 %; NEUT % 84.9 %; PLATELET COUNT 191 K/uL (130-400); RED BLOOD COUNT 3.76 M/uL (4.2-5.4); WHITE BLOOD COUNT 5.97 K/uL (4.8-10.8)
--- NOTE | 2017-05-21 07:15 | DIAGNOSTIC IMAGING REPORT ---
ULTRASOUND KIDNEYS AND BLADDER CLINICAL HISTORY: Acute renal insufficiency. COMPARISON STUDY: No priors. TECHNIQUE: Real-time, grayscale, and color flow sonography of the kidneys and bladder is performed. Images are reviewed in the transverse and longitudinal planes. FINDINGS: Kidneys: The kidneys are atrophic. The right kidney measures 9.0 cm in length and the left kidney measures 9.7 cm in length. There is no hydronephrosis. No shadowing renal calculi are identified. There is no sonographic evidence of contour deforming renal mass lesion. No perinephric fluid is identified. Bladder: The bladder is decompressed and not well assessed. Ureteral jets could not be evaluated. Upper abdomen: Survey images of the right upper quadrant show cholelithiasis. A small right pleural effusion is noted. IMPRESSION: 1. The kidneys are atrophic and without hydronephrosis. 2. The bladder was decompressed and not well evaluated. 3. Cholelithiasis. 4. Small right pleural effusion. Electronically signed by: Steve Martini M.D. 05/21/2017 7:14 AM Dictated Date/Time: 05/21/2017 7:12 AM
[2017-05-21 07:45] LABS: PROTHROMBIN TIME (PATIENT) 43.5 SECONDS (9.0-12.0)
[2017-05-21] MEDS: LEVALBUTEROL 1.25MG/0.5ML NEB INH SCH ×3 (07:45→23:51)
[2017-05-21] MEDS: IPRATROPIUM BROMIDE NEB SOLN 0.02% 2.5 ML VIAL INH SCH ×3 (07:45→23:51)
[2017-05-21 07:46] LABS: INR 3.8 (0.9-1.1)
[2017-05-21 07:53] LABS: BUN/CREATININE RATIO 19.3 (10-20); CALCIUM 7.8 mg/dl (8.5-10.1); CREATININE 3.4 mg/dl (0.60-1.20); POTASSIUM 4.8 mmol/L (3.5-5.1)
[2017-05-21] MEDS: ASPIRIN 81 MG ECTAB PO SCH (08:21)
[2017-05-21] MEDS: METOPROLOL TARTRATE 25 MG TAB PO SCH ×2 (08:22→21:08)
[2017-05-21] MEDS ORDERED: POLYETHYLENE (MIRALAX) 17 GM PACK PO PRN (09:15)
--- NOTE | 2017-05-21 09:22 | Hospitalist Progress Note ---
Hospitalist Progress Note Date of Service May 21, 2017. Subjective Pt evaluation today including: conversation w/ patient, physical exam, chart review, lab review, review of studies, review of inpatient medication list Voiding: no voiding problems, no incontinence Patient states she is feeling well this AM. +SOB, but improving since admission- wears 3L O2 HS. -- SOB has been ongoing since [facility] and dealing w/ pneumonia- has been on multiple antibiotic treatments w/ most recent treatment of Levaquin -- Was scheduled for pulmonary appointment on 05/22 -- Denies h/o smoking or secondhand smoke. Denies COPD/asthma, or PFTs. +Nonproductive cough. Patient denies any fever, chills, sweats, lightheadedness, dizziness, vision changes, CP, palpitations, edema, wheezing, abdominal pain, nausea, vomiting, diarrhea, urinary symptoms, melena, numbness/tingling, weakness, muscle/joint pain, anxiety/depression, active bleeding, or new skin discoloration/changes. Medications Current Inpatient Medications Medications (Trade) Dose Ordered Sig/Jenifer Route Start Time Stop Time Status Last Admin Dose Admin Sodium Chloride 1,000 ml @ 35 mls/hr Q24H IV 05/20/17 18:15 06/19/17 18:14 05/20/17 22:47 35 MLS/HR Aspirin (Ecotrin Tab) 81 mg QAM PO 05/21/17 09:00 06/20/17 08:59 05/21/17 08:21 81 MG Sertraline HCl (Zoloft Tab) 50 mg HS PO 05/20/17 21:00 06/19/17 20:59 05/20/17 22:48 50 MG Warfarin Sodium (Coumadin Tab) 3 mg DAILY@16 PO 05/21/17 16:00 06/20/17 15:59 Metoprolol Tartrate (Lopressor Tab) 12.5 mg BID PO 05/20/17 21:00 06/19/17 20:59 05/21/17 08:22 12.5 MG Acetaminophen (Tylenol Tab) 650 mg Q4H PRN PO 05/20/17 18:30 06/19/17 18:29 Ondansetron HCl (Zofran Inj) 4 mg Q6H PRN IV 05/20/17 18:30 06/19/17 18:29 Levalbuterol (Xopenex 1.25MG/ 0.5ML Neb) 1.25 mg Q8R INH 05/21/17 00:00 06/20/17 00:00 05/21/17 07:45 1.25 MG Ipratropium [place] (Atrovent 0.02% 0.5MG/2.5ML Neb) 0.5 mg Q8R INH 05/21/17 00:00 06/20/17 00:00 05/21/17 07:45 0.5 MG Objective Vital Signs Date Time Temp Pulse Resp B/P (MAP) Pulse Ox O2 Delivery O2 Flow Rate FiO2 05/21/17 07:32 36.4 69 20 108/72 (84) 93 Room Air 05/21/17 07:15 78 18 94 Nasal Cannula 2.0 05/21/17 04:06 Nasal Cannula 2.0 05/21/17 03:56 36.6 82 19 102/66 (78) 93 Nasal Cannula 2.0 05/21/17 00:08 Nasal Cannula 2.0 05/20/17 23:22 71 18 93 Nasal Cannula 3.0 05/20/17 23:09 36.8 71 19 109/64 (79) 93 Nasal Cannula 2.0 05/20/17 20:06 36.7 77 16 102/56 (71) 92 Nasal Cannula 2.0 05/20/17 19:30 73 20 108/66 93 05/20/17 19:20 70 18 107/66 94 Nasal Cannula 2.0 05/20/17 18:34 93 Nasal Cannula 2.0 05/20/17 18:07 72 23 93 05/20/17 18:02 97/50 05/20/17 17:52 72 20 93 05/20/17 17:37 72 22 93 05/20/17 17:22 75 19 93 05/20/17 17:07 71 27 94 05/20/17 17:02 110/69 05/20/17 16:52 77 94 05/20/17 16:37 70 22 93 05/20/17 16:22 66 24 93 05/20/17 16:07 76 25 93 05/20/17 15:56 123/53 05/20/17 15:55 74 20 123/53 94 Nasal Cannula 2.0 05/20/17 15:52 70 17 93 05/20/17 15:37 69 19 91 05/20/17 15:36 79/33 05/20/17 15:22 74 19 92 05/20/17 15:21 96 Nasal Cannula 2.0 05/20/17 15:21 88 Room Air 05/20/17 15:07 72 23 109/46 05/20/17 14:52 72 23 05/20/17 14:37 68 23 91 05/20/17 14:25 67 05/20/17 14:20 94 Nasal Cannula 4.0 05/20/17 14:14 36.9 72 20 109/46 85 Room Air 05/20/17 14:14 85 Room Air 05/20/17 14:13 109/46 Physical Exam General Appearance: no apparent distress, + obese, + pertinent finding (O2 nasal cannula @ 3L ) Eyes: normal inspection, PERRL ENT: hearing grossly normal Neck: supple Respiratory/Chest: lungs clear, no respiratory distress, no accessory muscle use, + decreased breath sounds (throughout all lung jain ) Cardiovascular: regular rate, rhythm, + pertinent finding (systolic click ) Abdomen: normal bowel sounds, non tender, soft Extremities: no pedal edema, no calf tenderness Neurologic/Psychiatric: alert, normal mood/affect, oriented x 3 Skin: normal color, warm/dry, no rash Laboratory Results Last 24 Hours Test 05/20/17 15:10 05/20/17 22:41 05/21/17 06:43 05/21/17 07:42 White Blood Count 7.16 K/uL 5.97 K/uL Red Blood Count 4.27 M/uL 3.76 M/uL Hemoglobin 11.7 g/dL 10.7 g/dL Hematocrit 39.2 % 34.3 % Mean Corpuscular Volume 91.8 fL 91.2 fL Mean Corpuscular Hemoglobin 27.4 pg 28.5 pg Mean Corpuscular Hemoglobin Concent 29.8 g/dl 31.2 g/dl Platelet Count 203 K/uL 191 K/uL Mean Platelet Volume 12.2 fL 11.7 fL Neutrophils (%) (Auto) 86.8 % 84.9 % Lymphocytes (%) (Auto) 7.5 % 7.4 % Monocytes (%) (Auto) 3.9 % 7.4 % Eosinophils (%) (Auto) 1.4 % 0.0 % Basophils (%) (Auto) 0.1 % 0.0 % Neutrophils # (Auto) 6.21 K/uL 5.07 K/uL Lymphocytes # (Auto) 0.54 K/uL 0.44 K/uL Monocytes # (Auto) 0.28 K/uL 0.44 K/uL Eosinophils # (Auto) 0.10 K/uL 0.00 K/uL Basophils # (Auto) 0.01 K/uL 0.00 K/uL RDW Standard Deviation 49.6 fL 47.8 fL RDW Coefficient of Variation 14.6 % 14.5 % Immature Granulocyte % (Auto) 0.3 % 0.3 % Immature Granulocyte # (Auto) 0.02 K/uL 0.02 K/uL Prothrombin Time 36.3 SECONDS 43.5 SECONDS Prothromb Time International Ratio 3.2 3.8 Activated Partial Thromboplast Time 44.5 SECONDS Partial Thromboplastin Ratio 1.7 Sodium Level 139 mmol/L 139 mmol/L 141 mmol/L Potassium Level 5.2 mmol/L 5.1 mmol/L 4.8 mmol/L Chloride Level 103 mmol/L 104 mmol/L 106 mmol/L Carbon Dioxide Level 28 mmol/L 25 mmol/L 28 mmol/L Anion Gap 8.0 mmol/L 10.0 mmol/L 7.0 mmol/L Blood Urea Nitrogen 61 mg/dl 64 mg/dl 66 mg/dl Creatinine 4.20 mg/dl 4.00 mg/dl 3.40 mg/dl Est Creatinine Clear Calc Drug Dose 13.0 ml/min 13.6 ml/min 15.6 ml/min Estimated GFR () 11.4 12.1 14.7 Estimated GFR (Non- 9.9 10.4 12.7 BUN/Creatinine Ratio 14.4 15.9 19.3 Random Glucose 109 mg/dl 168 mg/dl 115 mg/dl Calcium Level 8.1 mg/dl 8.2 mg/dl 7.8 mg/dl Magnesium Level 2.6 mg/dl Total Bilirubin 0.3 mg/dl Aspartate Amino Transf (AST/SGOT) 13 U/L Alanine Aminotransferase (ALT/SGPT) 10 U/L Alkaline Phosphatase 80 U/L Troponin I 0.045 ng/ml Pro-B-Type Natriuretic Peptide 3433 pg/ml Total Protein 6.3 gm/dl Albumin 2.7 gm/dl Globulin 3.6 gm/dl Albumin/Globulin Ratio 0.8 Thyroid Stimulating Hormone (TSH) 1.740 uIu/ml Assessment and Plan Patient is a 72-year-old female presents emergency department with complaints of chronic shortness of breath, productive cough and intermittent fever. Previously treated for community-acquired pneumonia which required intubation at [facility]. She has been on multiple antibiotics (Augmentin, doxycycline and most recently Levaquin) with minimal improvement. Now found to be in acute renal failure Acute on chronic respiratory failure, ?secondary chronic infectious process vs CHF exacerbation vs other etiology: - Admit to [facility] for cardiac monitoring- no acute events overnight - No indication for antibiotic treatment at this time- vitals stable, no WBC, no sputum production - DuoNebs q8 hrs - O2 protocol, wean as tolerated- wears 3L O2 HS - ESR, CRP, and procalcitonin pending - BCx pending - Pulmonary consulted, appreciate recommendations ARF on ?CKD stage III- IMPROVING: - Urine Cr, sodium, and potassium- reviewed - Renal US- The kidneys are atrophic and without hydronephrosis. Normal arterial Doppler. No evidence for a significant stenotic process. - Gentle IVF @ 35 ml/hr- d/c'd - IV Lasix 40 mg x1 given in ED - Hold nephrotoxic agents - Consulted nephrology, appreciate recommendations Hyperkalemia- RESOLVED: - Treated w/ 30 gm Kayexalate on 05/20 - Hold KCL 20 mEq HS - Follow PRP HTN- CONTROLLED: Lisinopril 20 mg daily held due to ARF h/o a.fib: - Hold Coumadin due to supratherapuetic INR of 3.8 - Metoprolol Succinate 50 mg QAM changed to Lopressor 12.5 mg BID, ASA 81 mg daily, Lopressor h/o CHF w/ most recent hospitalization due to exacerbation on 05/07- ?possible exacerbation: - Given IV 40 mg Lasix on 05/20; Lasix 40 mg QAM held; will give additional IV Lasix 40 mg x1 dose on 05/21 - Most recent ECHO 05/08/17- reviewed h/o AVR- mechanical: Coumadin w/ INR goal of 2-3 Hyperlipidemia: Continue Crestor 20 mg HS Depression: Sertraline dose decreased 50 mg HS GI Prophylaxis: IV Zofran PRN, MiraLAX PRN DVT Prophylaxis: Coumadin Code Status: LEVEL I, FULL Dispo: From home- social work faculty member consulted - PT/OT evaluations pending
[2017-05-21] MEDS ORDERED: FUROSEMIDE INJ 40 MG in SYRINGE 0 ML IV ONE (11:30)
[2017-05-21] MEDS ORDERED: WARFARIN SOD 3 MG TAB PO SCH (16:00)
--- NOTE | 2017-05-21 16:04 | Nephrology Consultation ---
Nephrology Consultation Date & Providers Date of Consultation: May 21, 2017. Primary Care Provider: Laina Rose M.D. Referring Provider: Reason for Consultation Evaluation of acute on chronic kidney injury History of Present Illness Ms. Inman is a 72 year old white female who is seen at the request of Dr. Llanos for evaluation of acute on chronic kidney injury. Medical records in the hospital EMR were reviewed today and are summarized as follows: Ms. Inman has a h/o hyperlipidemia, DVT, depression, and ascending aortic aneurysm s/p repair and AVR 2004. She has had SSS and underwent pacemaker insertion 11/15. She has longstanding HTN controlled w/ Lisinopril therapy. She has a stable LLL pleural based lung nodule and an enlarged L adrenal gland c/w an adenoma. Ms. Inman was hospitalized at [facility] late 04/17 for community acquired pneumonia. Her hospital course was complicated by respiratory failure requiring mechanical ventilation. She was later hospitalized at [facility] 05/07 - w/ CHF. Echocardiogram revealed LVEF 50 - 55%. No WMA. AVR could not be visualized. Her diuretics were increased and she was discharged home on 3 L O2 NC at night. Yesterday Ms. Inman presented to her PCP for evaluation. She complained of progressive dyspnea and orthopnea. SBP was 80 mmHG. Serum creatinine had risen from a baseline of 1.2 to 4.2. Ms. Inman is now admitted for recurrent decompensated CHF. Past Medical/Surgical History Medical: # Hyperlipidemia # DVT # Depression # Ascending aortic aneurysm s/p repair w/ AVR 2004 # SSS s/p pacemaker 11/15 # HTN # LLL pleural based lung nodule Surgical: # Ascending aortic aneurysm repair w/ AVR 2014 # Pacemaker insertion 2014 Allergies Coded Allergies: Digoxin (Verified Adverse Reaction, Intermediate, N/V, 05/20/17) Morphine (Verified Adverse Reaction, Intermediate, HALLUCINATIONS AND AGGRESSION, 05/20/17) Inpatient Medications Current Inpatient Medications Medications (Trade) Dose Ordered Sig/Jenifer Route Start Time Stop Time Status Last Admin Dose Admin Aspirin (Ecotrin Tab) 81 mg QAM PO 05/21/17 09:00 06/20/17 08:59 05/21/17 08:21 81 MG Sertraline HCl (Zoloft Tab) 50 mg HS PO 05/20/17 21:00 7/19/17 20:59 05/20/17 22:48 50 MG Warfarin Sodium (Coumadin Tab) 3 mg DAILY@16 PO 05/21/17 16:00 06/20/17 15:59 Future Hold Metoprolol Tartrate (Lopressor Tab) 12.5 mg BID PO 05/20/17 21:00 06/19/17 20:59 05/21/17 08:22 12.5 MG Acetaminophen (Tylenol Tab) 650 mg Q4H PRN PO 05/20/17 18:30 06/19/17 18:29 Ondansetron HCl (Zofran Inj) 4 mg Q6H PRN IV 05/20/17 18:30 06/19/17 18:29 Levalbuterol (Xopenex 1.25MG/ 0.5ML Neb) 1.25 mg Q8R INH 05/21/17 00:00 06/20/17 00:00 05/21/17 07:45 1.25 MG Ipratropium [place] (Atrovent 0.02% 0.5MG/2.5ML Neb) 0.5 mg Q8R INH 05/21/17 00:00 06/20/17 00:00 05/21/17 07:45 0.5 MG Polyethylene (Miralax Powder Packet) 17 gm DAILY PRN PO 05/21/17 09:15 06/20/17 09:14 Rosuvastatin Calcium (Crestor Tab) 20 mg HS PO 05/21/17 21:00 06/20/17 20:59 Family History Negative for CKD/ESRD Social History Smoking Status: Never Smoker Alcohol Use: none Marital Status: Housing Status: lives with family 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 Never a smoker. Review of Systems Constitutional: No fever Respiratory: + wheezing Cardiovascular: No chest pain Abdomen: No pain A complete review of systems was performed. Pertinent positives are noted above. All other systems are negative. Physical Exam Date Time Temp Pulse Resp B/P (MAP) Pulse Ox O2 Delivery O2 Flow Rate FiO2 05/21/17 12:06 36.9 62 18 108/54 (72) 97 Nasal Cannula 2.0 05/21/17 12:05 Room Air 2.0 05/21/17 08:20 93 Room Air 2.0 05/21/17 07:32 36.4 69 20 108/72 (84) 93 Room Air 05/21/17 07:15 78 18 94 Nasal Cannula 2.0 05/21/17 04:06 Nasal Cannula 2.0 05/21/17 03:56 36.6 82 19 102/66 (78) 93 Nasal Cannula 2.0 05/21/17 00:08 Nasal Cannula 2.0 05/20/17 23:22 71 18 93 Nasal Cannula 3.0 05/20/17 23:09 36.8 71 19 109/64 (79) 93 Nasal Cannula 2.0 05/20/17 20:06 36.7 77 16 102/56 (71) 92 Nasal Cannula 2.0 05/20/17 19:30 73 20 108/66 93 05/20/17 19:20 70 18 107/66 94 Nasal Cannula 2.0 05/20/17 18:34 93 Nasal Cannula 2.0 05/20/17 18:07 72 23 93 05/20/17 18:02 97/50 05/20/17 17:52 72 20 93 05/20/17 17:37 72 22 93 05/20/17 17:22 75 19 93 05/20/17 17:07 71 27 94 05/20/17 17:02 110/69 05/20/17 16:52 77 94 05/20/17 16:37 70 22 93 05/20/17 16:22 66 24 93 05/20/17 16:07 76 25 93 05/20/17 15:56 123/53 05/20/17 15:55 74 20 123/53 94 Nasal Cannula 2.0 05/20/17 15:52 70 17 93 General Appearance: no apparent distress Head: normocephalic, atraumatic Eyes: PERRL, EOMI Neck: no adenopathy Respiratory/Chest: lungs clear Cardiovascular: regular rate, rhythm Abdomen/GI: normal bowel sounds, non tender, soft Extremities/Musculoskelatal: no pedal edema Neurologic/Psych: alert, oriented x 3 Skin: warm/dry Laboratory Results Last 24 Hours Test 05/20/17 22:41 05/21/17 06:43 05/21/17 08:54 Sodium Level 139 mmol/L 141 mmol/L Potassium Level 5.1 mmol/L 4.8 mmol/L Chloride Level 104 mmol/L 106 mmol/L Carbon Dioxide Level 25 mmol/L 28 mmol/L Anion Gap 10.0 mmol/L 7.0 mmol/L Blood Urea Nitrogen 64 mg/dl 66 mg/dl Creatinine 4.00 mg/dl 3.40 mg/dl Est Creatinine Clear Calc Drug Dose 13.6 ml/min 15.6 ml/min Estimated GFR () 12.1 14.7 Estimated GFR (Non- 10.4 12.7 BUN/Creatinine Ratio 15.9 19.3 Random Glucose 168 mg/dl 115 mg/dl Calcium Level 8.2 mg/dl 7.8 mg/dl White Blood Count 5.97 K/uL Red Blood Count 3.76 M/uL Hemoglobin 10.7 g/dL Hematocrit 34.3 % Mean Corpuscular Volume 91.2 fL Mean Corpuscular Hemoglobin 28.5 pg Mean Corpuscular Hemoglobin Concent 31.2 g/dl Platelet Count 191 K/uL Mean Platelet Volume 11.7 fL Neutrophils (%) (Auto) 84.9 % Lymphocytes (%) (Auto) 7.4 % Monocytes (%) (Auto) 7.4 % Eosinophils (%) (Auto) 0.0 % Basophils (%) (Auto) 0.0 % Neutrophils # (Auto) 5.07 K/uL Lymphocytes # (Auto) 0.44 K/uL Monocytes # (Auto) 0.44 K/uL Eosinophils # (Auto) 0.00 K/uL Basophils # (Auto) 0.00 K/uL RDW Standard Deviation 47.8 fL RDW Coefficient of Variation 14.5 % Immature Granulocyte % (Auto) 0.3 % Immature Granulocyte # (Auto) 0.02 K/uL Prothrombin Time 43.5 SECONDS Prothromb Time International Ratio 3.8 Erythrocyte Sedimentation Rate 26 mm/hr C-Reactive Protein 1.72 mg/dl Procalcitonin 0.26 ng/ml Impression (1) Acute kidney injury (2) Chronic kidney disease (CKD) (3) CHF exacerbation Patient admitted w/ acute on chronic kidney injury, hypotension and recurrent CHF. CXR films show cardiomegally and pulmonary vascular congestion. Urine microscopy and UPCR are pending. Renal US revealed 9 cm kidneys w/ cortical thinning c/w microvascular disease. There was no hydronephrosis reported. Patient has h/o ascending aortic aneurysm repair and is s/p AVR. Clinically suspect renal impairment is due to impaired perfusion associated w/ CHF. Recommendations ACUTE KIDNEY INJURY: -- Hold Lisinopril -- Will order urinalysis w/ microscopy and UPCR -- FeNa is 1% while on diuretic therapy -- Renal US report was reviewed today and negative for obstruction. Renal artery doppler was negative for stenosis. -- Monitor serial PRP CHRONIC KIDNEY DISEASE: -- Baseline creatinine 1.3. Renal US shows 9 cm kidneys w/ cortical thinning c/ w microvascular disease HYPERTENSION: -- Blood pressure is relatively low. Hold Lisinopril CONGESTIVE HEART FAILURE: -- Recommend follow up echocardiogram to reassess AVR and LV function -- Recommend consultation w/ Cardiology
[2017-05-21 16:38] LABS: URINE APPEARANCE CLEAR (CLEAR); URINE BILIRUBIN NEG (NEG); URINE COLOR YELLOW; URINE EPITHELIAL CELL AUTO >30 /lpf (0-5); URINE NITRITE NEG (NEG); URINE SPECIFIC GRAVITY 1.018 (1.000-1.030); UROBILINOGEN NEG (NEG)
[2017-05-21 16:41] LABS: MANUAL MICROSCOPIC REQUIRED? NO; REVIEW REQ? YES
[2017-05-21 17:06] LABS: URINE PROTIEN/CREAT RATIO 0.1 (0-0.2); URINE TOTAL PROTEIN 5.6 mg/dl (0-11.9)
[2017-05-21] MEDS: SERTRALINE HCL 100 MG TAB PO SCH (21:08)
[2017-05-21] MEDS: ROSUVASTATIN CALCIUM 20 MG TAB PO SCH (21:08)
--- NOTE | 2017-05-21 23:06 | Pulmonary Consultation ---
History General Date of Service: May 21, 2017. Stated Complaint: Acute/Chronic Resp Failure W/ Hypoxia, Acute Renal HPI Patient was seen this AM The patient is a 72 year old female who presents to [facility] with complaints of Acute/Chronic Resp Failure W/ Hypoxia, Acute Renal. The patient's primary care provider is Laina Rose M.D.. Patient presents to [facility] for shortness of breath and cough. She had about a month long history of pneumonia, treated with multiple antibiotics, Doxy, Augmentin, Levaquin, admitted at [facility] on 04/25 during which time she was intubated. Had a following admission at [facility] 05/07-05/09 for CHF exacerbation, Lasix was increased. Recently she was found to have declining renal function as outpatient, Lasix was held. At [facility] she was found to have a LLL mass on 03/27/17. Repeat CT on it was found to be smaller, measuring 2 x 2.1 x 2.1 cm Today she feels better, is on nasal cannula. Denies urinary symptoms, diminished urinary output. Review of Systems Constitutional: reports: fever Eyes: reports: no symptoms Respiratory: reports: cough, sputum production, PERAZA Gastrointestinal: reports: no symptoms Genitourinary - Female: reports: no symptoms Musculoskeletal: reports: no symptoms Integumentary: reports: no symptoms Neurologic: reports: no symptoms Endocrine: no symptoms Hematologic / Lymphatic: no symptoms Past Medical History Past Medical History: congestive heart failure, deep vein thrombosis, hypertension Past Surgical History: other Social History Hx Tobacco Use In Past Year?: No Smoking Status: Never Smoker Marital status: Housing status: lives with family Occupational Status: retired Allergies Coded Allergies: Digoxin (Verified Adverse Reaction, Intermediate, N/V, 05/20/17) Morphine (Verified Adverse Reaction, Intermediate, HALLUCINATIONS AND AGGRESSION, 05/20/17) Current Medications Reported Home Medications Medications Dose Route/Sig Max Daily Dose Days Date Category Dose Instructions Duoneb (Ipratropium-Albuterol) 3 Ml Nebu 1 Treatment INH PRN UD 05/20/17 Reported Levaquin (Levofloxacin) 500 Mg Tab 250 Mg PO DAILY 05/20/17 Reported Klor-Con (Potassium Chloride) 20 Meq Tabcr 20 Meq PO HS 05/20/17 Reported Calcium 600 + D (Calcium Carbonate-Vitamin D) 1 Tab Tab 1 Tab PO AMHS 05/07/17 Reported Zoloft (Sertraline Hcl) 100 Mg Tab 100 Mg PO HS 11/16/15 Reported Warfarin Sodium 4 Mg Tab 6 Mg PO DAILY 11/16/15 Reported Aspirin 81 Mg Chw 81 Mg PO DAILY 11/16/15 Reported Lasix (Furosemide) 40 Mg Tab 40 Mg PO QAM 11/16/15 Reported Crestor (Rosuvastatin Calcium) 20 Mg Tab 20 Mg PO HS 11/16/15 Reported Metoprolol Succinate ER (Metoprolol Succinate) 50 Mg Tabcr 50 Mg PO QAM 11/16/15 Reported Prinivil (Lisinopril) 20 Mg Tab 20 Mg PO HS 11/16/15 Reported Fosamax+D 70MG/2800 Iu (Alendronate Sodium/Vitamin D3) 70 Mg Tab 1 Tablet PO WK 11/16/15 Reported TAKE DAILY ON SUNDAYS Physical Physical Exam Vital Signs: Date Time Temp Pulse Resp B/P (MAP) Pulse Ox O2 Delivery O2 Flow Rate FiO2 05/21/17 20:53 Nasal Cannula 2.0 05/21/17 19:41 36.4 68 18 106/65 (79) 96 Nasal Cannula 2.0 05/21/17 16:05 Room Air 2.0 05/21/17 15:50 36.6 67 16 108/71 (83) 96 Nasal Cannula 2.0 05/21/17 15:48 71 18 97 Nasal Cannula 2.0 05/21/17 12:06 36.9 62 18 108/54 (72) 97 Nasal Cannula 2.0 05/21/17 12:05 Room Air 2.0 05/21/17 08:20 93 Room Air 2.0 05/21/17 07:32 36.4 69 20 108/72 (84) 93 Room Air 05/21/17 07:15 78 18 94 Nasal Cannula 2.0 05/21/17 04:06 Nasal Cannula 2.0 05/21/17 03:56 36.6 82 19 102/66 (78) 93 Nasal Cannula 2.0 05/21/17 00:08 Nasal Cannula 2.0 05/20/17 23:22 71 18 93 Nasal Cannula 3.0 05/20/17 23:09 36.8 71 19 109/64 (79) 93 Nasal Cannula 2.0 General Appearance: WELL-APPEARING, NO APPARENT DISTRESS Eyes: PERRLA Neck: TRACHEA MIDLINE, NO STRIDOR Respiratory: CLEAR TO AUSCULTATION Cardiovasular: REGULAR RATE/RHYTHM, NORMAL S1S2, other Abdomen: NON TENDER, NO REBOUND Upper Extremities: NO EDEMA Lower Extremities: NO EDEMA Diagnostics Labs Results Past 24 Hours Test 05/20/17 22:41 05/21/17 00:00 05/21/17 06:43 05/21/17 08:54 Range/Units Sodium Level 139 141 136-145 mmol/L Potassium Level 5.1 4.8 3.5-5.1 mmol/L Chloride Level 104 106 98-107 mmol/L Carbon Dioxide Level 25 28 21-32 mmol/L Anion Gap 10.0 7.0 3-11 mmol/L Blood Urea Nitrogen 64 66 7-18 mg/dl Creatinine 4.00 3.40 0.60-1.20 mg/dl Est Creatinine Clear Calc Drug Dose 13.6 15.6 ml/min Estimated GFR () 12.1 14.7 Estimated GFR (Non- 10.4 12.7 BUN/Creatinine Ratio 15.9 19.3 10-20 Random Glucose 168 115 70-99 mg/dl Calcium Level 8.2 7.8 8.5-10.1 mg/dl Urine Color YELLOW Urine Appearance CLEAR CLEAR Urine pH 5.0 4.5-7.5 Urine Specific [place] 1.018 1.000-1.030 Urine Protein NEG NEG Urine Glucose (UA) NEG NEG Urine Ketones NEG NEG Urine Occult Blood NEG NEG Urine Nitrite NEG NEG Urine Bilirubin NEG NEG Urine Urobilinogen NEG NEG Urine Leukocyte Esterase MODERATE NEG Urine WBC (Auto) >30 0-5 /hpf Urine RBC (Auto) 0-4 0-4 /hpf Urine Hyaline Casts (Auto) 5-10 0-5 /lpf Urine Epithelial Cells (Auto) >30 0-5 /lpf Urine Bacteria (Auto) NEG NEG Urine Renal Epithelial Cells 5-10 0-5 /lpf Urine Pathogenic Casts 0 /lpf Urine Random Creatinine 120.0 mg/dl Urine Random Total Protein 5.6 0-11.9 mg/dl Urine Protein/Creatinine Ratio 0.1 0-0.2 White Blood Count 5.97 4.8-10.8 K/uL Red Blood Count 3.76 4.2-5.4 M/uL Hemoglobin 10.7 12.0-16.0 g/dL Hematocrit 34.3 37-47 % Mean Corpuscular Volume 91.2 80-100 fL Mean Corpuscular Hemoglobin 28.5 25-34 pg Mean Corpuscular Hemoglobin Concent 31.2 32-36 g/dl Platelet Count 191 130-400 K/uL Mean Platelet Volume 11.7 7.4-10.4 fL Neutrophils (%) (Auto) 84.9 % Lymphocytes (%) (Auto) 7.4 % Monocytes (%) (Auto) 7.4 % Eosinophils (%) (Auto) 0.0 % Basophils (%) (Auto) 0.0 % Neutrophils # (Auto) 5.07 1.4-6.5 K/uL Lymphocytes # (Auto) 0.44 1.2-3.4 K/uL Monocytes # (Auto) 0.44 0.11-0.59 K/uL Eosinophils # (Auto) 0.00 0-0.5 K/uL Basophils # (Auto) 0.00 0-0.2 K/uL RDW Standard Deviation 47.8 36.4-46.3 fL RDW Coefficient of Variation 14.5 11.5-14.5 % Immature Granulocyte % (Auto) 0.3 % Immature Granulocyte # (Auto) 0.02 0.00-0.02 K/uL Prothrombin Time 43.5 9.0-12.0 SECONDS Prothromb Time International Ratio 3.8 0.9-1.1 Erythrocyte Sedimentation Rate 26 0-21 mm/hr C-Reactive Protein 1.72 0-0.29 mg/dl Procalcitonin 0.26 0-0.5 ng/ml Diagnostic Radiology CXR 05/20: FINDINGS: An AP, portable, upright chest radiograph is compared to study dated 05/06/2017. The examination is degraded by portable technique, large body habitus, and patient rotation. A 2-lead cardiac pacemaker is unchanged in position. The heart is enlarged. There is pulmonary vascular congestion and interstitial edema. Trace pleural effusions are suspected. Linear atelectasis versus scarring is noted in both lungs. No pneumothorax is seen. The skeletal structures are osteopenic. The bony thorax is grossly intact. Surgical clips are noted in the right axilla. Impression Assessment and Plan Patient with recent h/o PNA requiring intubation, CHV, metallic AVR, LLL nodule , presents with respiratory failure secondary to pulmonary edema, acute kidney injury. Supplement O2. If her respiratory status worsens, may place on non-invasive ventilation. No need for Abx, CXR not consistent with PNA, more with pulmonary edema, BNP elevated, procalcitonin negative Monitor renal function Fully anticoagulated. LLL nodule may be followed as outpatient.
[2017-05-22] VITALS (13 sets, daily range): BP systolic 95–111; BP diastolic 59–74; PULSE 62–93; TEMP 36.4–36.7; O2SAT 92–96
[2017-05-22 06:56] LABS: BASO % 0.1 %; BASO ABS # 0.01 K/uL (0-0.2); COMPLETE YES; EOS % 2.5 %; HEMATOCRIT 35.3 % (37-47); IG% 0.3 %; LYMPH ABS # 0.67 K/uL (1.2-3.4); MEAN CORPUSCULAR HEMOGLOBIN 28.6 pg (25-34); MEAN CORPUSCULAR HGB CONC 31.4 g/dl (32-36); MEAN PLATELET VOLUME 11.7 fL (7.4-10.4); MONO % 8.5 %; NEUT % 78.6 %; PLATELET COUNT 203 K/uL (130-400); RED BLOOD COUNT 3.88 M/uL (4.2-5.4); WHITE BLOOD COUNT 6.67 K/uL (4.8-10.8)
[2017-05-22 07:07] LABS: INR 3.2 (0.9-1.1); PROTHROMBIN TIME (PATIENT) 36.5 SECONDS (9.0-12.0)
[2017-05-22] MEDS: IPRATROPIUM BROMIDE NEB SOLN 0.02% 2.5 ML VIAL INH SCH ×3 (07:21→19:59)
[2017-05-22] MEDS: LEVALBUTEROL 1.25MG/0.5ML NEB INH SCH ×3 (07:21→19:59)
[2017-05-22] MEDS: ASPIRIN 81 MG ECTAB PO SCH (07:32)
[2017-05-22] MEDS: METOPROLOL TARTRATE 25 MG TAB PO SCH ×2 (07:33→20:49)
[2017-05-22 07:39] LABS: BUN/CREATININE RATIO 23.9 (10-20); CALCIUM 7.7 mg/dl (8.5-10.1); CREATININE 2.8 mg/dl (0.60-1.20); POTASSIUM 4.3 mmol/L (3.5-5.1)
[2017-05-22] MEDS ORDERED: COUGH DROP (SUGAR FREE) LOZ 24 LOZ/1 BOX ONE (11:52)
--- NOTE | 2017-05-22 12:28 | Clinical Documentation Query ---
CLINICAL DOCUMENTATION QUERY In your clinical opinion is this patient being managed for: ( X ) Acute on chronic diastolic (preserved EF) heart failure treated with IV Lasix ( ) Acute on chronic systolic and diastolic CHF treated with same. ( ) Other explanation of clinical findings (Please Explain) ( ) Unable to determine (Please Define) ( ) Need to Discuss ( ) Not Agree The medical record reflects the following clinical findings, treatment, and risk factors. Clinical Indicators: SOB, CXR showed cardiomegaly and cardiac pacemaker with evidence of congestive failure and interstitial edema. Treatment: IV Lasix Risk Factors: Hx CHF, HTN, Cardiomegaly, CKD and ZARIA. Please clarify and document your clinical opinion in the progress notes and discharge summary. Terms such as "probable", "suspected", "likely", "questionable", "possible", or "still to be ruled out" are acceptable. IF IN AGREEMENT, YOU MUST DOCUMENT ABOVE DIAGNOSTIC STATEMENT IN DAILY PROGRESS NOTES AND DISCHARGE SUMMARY. This document is not part of the patient's record. Thank You, Donald Lugo, RN [phone]
[2017-05-22] MEDS ORDERED: FUROSEMIDE INJ 40 MG in SYRINGE 0 ML IV ONE (12:30)
--- NOTE | 2017-05-22 13:26 | Hospitalist Progress Note ---
Hospitalist Progress Note Date of Service May 22, 2017. Subjective Pt evaluation today including: conversation w/ patient, physical exam, chart review, lab review, review of inpatient medication list Voiding: no voiding problems, no incontinence Patient states she is feeling well this AM. She is eating and drinking OK. SOB continues to improves. +nonproductive cough Patient denies any fever, chills, sweats, lightheadedness, dizziness, vision changes, CP, palpitations, edema, wheezing, abdominal pain, nausea, vomiting, diarrhea, urinary symptoms, melena, numbness/tingling, weakness, muscle/joint pain, anxiety/depression, active bleeding, or new skin discoloration/changes. Medications Current Inpatient Medications Medications (Trade) Dose Ordered Sig/Jenifer Route Start Time Stop Time Status Last Admin Dose Admin Aspirin (Ecotrin Tab) 81 mg QAM PO 05/21/17 09:00 06/20/17 08:59 05/22/17 07:32 81 MG Sertraline HCl (Zoloft Tab) 50 mg HS PO 05/20/17 21:00 06/19/17 20:59 05/21/17 21:08 50 MG Warfarin Sodium (Coumadin Tab) 3 mg DAILY@16 PO 05/21/17 16:00 06/20/17 15:59 Future Hold Metoprolol Tartrate (Lopressor Tab) 12.5 mg BID PO 05/20/17 21:00 06/19/17 20:59 05/22/17 07:33 12.5 MG Acetaminophen (Tylenol Tab) 650 mg Q4H PRN PO 05/20/17 18:30 06/19/17 18:29 Ondansetron HCl (Zofran Inj) 4 mg Q6H PRN IV 05/20/17 18:30 06/19/17 18:29 Levalbuterol (Xopenex 1.25MG/ 0.5ML Neb) 1.25 mg Q8R INH 05/21/17 00:00 06/20/17 00:00 05/22/17 07:21 1.25 MG Ipratropium [place] (Atrovent 0.02% 0.5MG/2.5ML Neb) 0.5 mg Q8R INH 05/21/17 00:00 06/20/17 00:00 05/22/17 07:21 0.5 MG Polyethylene (Miralax Powder Packet) 17 gm DAILY PRN PO 05/21/17 09:15 06/20/17 09:14 Rosuvastatin Calcium (Crestor Tab) 20 mg HS PO 05/21/17 21:00 06/20/17 20:59 05/21/17 21:08 20 MG Objective Vital Signs Date Time Temp Pulse Resp B/P (MAP) Pulse Ox O2 Delivery O2 Flow Rate FiO2 05/22/17 11:42 Nasal Cannula 2.0 05/22/17 10:42 92 05/22/17 08:00 Nasal Cannula 2.0 05/22/17 07:32 36.5 81 20 105/68 (80) 94 Nasal Cannula 2.0 05/22/17 07:21 77 14 95 Nasal Cannula 2.0 05/22/17 04:05 Nasal Cannula 2.0 05/22/17 04:02 36.4 78 18 110/74 (86) 93 05/22/17 00:07 Nasal Cannula 2.0 05/21/17 23:51 82 14 96 Nasal Cannula 2.0 05/21/17 23:32 36.3 74 18 123/64 (83) 96 2.0 05/21/17 20:53 Nasal Cannula 2.0 05/21/17 19:41 36.4 68 18 106/65 (79) 96 Nasal Cannula 2.0 05/21/17 16:05 Room Air 2.0 05/21/17 15:50 36.6 67 16 108/71 (83) 96 Nasal Cannula 2.0 05/21/17 15:48 71 18 97 Nasal Cannula 2.0 Physical Exam General Appearance: no apparent distress, + obese, + pertinent finding (2L O2 nasal cannula ) Eyes: normal inspection, PERRL ENT: hearing grossly normal Neck: supple Respiratory/Chest: lungs clear, no respiratory distress, no accessory muscle use, + decreased breath sounds (throughout ) Cardiovascular: regular rate, rhythm Abdomen: normal bowel sounds, non tender, soft Extremities: no pedal edema, no calf tenderness Neurologic/Psychiatric: alert, normal mood/affect, oriented x 3 Skin: normal color, warm/dry, no rash Laboratory Results Last 24 Hours Test 05/22/17 06:34 White Blood Count 6.67 K/uL Red Blood Count 3.88 M/uL Hemoglobin 11.1 g/dL Hematocrit 35.3 % Mean Corpuscular Volume 91.0 fL Mean Corpuscular Hemoglobin 28.6 pg Mean Corpuscular Hemoglobin Concent 31.4 g/dl Platelet Count 203 K/uL Mean Platelet Volume 11.7 fL Neutrophils (%) (Auto) 78.6 % Lymphocytes (%) (Auto) 10.0 % Monocytes (%) (Auto) 8.5 % Eosinophils (%) (Auto) 2.5 % Basophils (%) (Auto) 0.1 % Neutrophils # (Auto) 5.23 K/uL Lymphocytes # (Auto) 0.67 K/uL Monocytes # (Auto) 0.57 K/uL Eosinophils # (Auto) 0.17 K/uL Basophils # (Auto) 0.01 K/uL RDW Standard Deviation 48.5 fL RDW Coefficient of Variation 14.5 % Immature Granulocyte % (Auto) 0.3 % Immature Granulocyte # (Auto) 0.02 K/uL Prothrombin Time 36.5 SECONDS Prothromb Time International Ratio 3.2 Sodium Level 142 mmol/L Potassium Level 4.3 mmol/L Chloride Level 106 mmol/L Carbon Dioxide Level 29 mmol/L Anion Gap 7.0 mmol/L Blood Urea Nitrogen 67 mg/dl Creatinine 2.80 mg/dl Est Creatinine Clear Calc Drug Dose 19.0 ml/min Estimated GFR () 18.6 Estimated GFR (Non- 16.1 BUN/Creatinine Ratio 23.9 Random Glucose 85 mg/dl Calcium Level 7.7 mg/dl Assessment and Plan Patient is a 72-year-old female presents emergency department with complaints of chronic shortness of breath, productive cough and intermittent fever. Previously treated for community-acquired pneumonia which required intubation at [facility]. She has been on multiple antibiotics (Augmentin, doxycycline and most recently Levaquin) with minimal improvement. Now found to be in acute renal failure Acute on chronic respiratory failure, ?secondary chronic infectious process vs CHF exacerbation vs other etiology: - Admit to tele for cardiac monitoring- no acute events overnight -- Transfer to med/surg on 05/22 - No indication for antibiotic treatment at this time- vitals stable, no WBC, no sputum production - DuoNebs q8 hrs - O2 protocol, wean as tolerated- wears 3L O2 HS - Checked ESR, CRP, and procalcitonin - BCx- 1 set gram + bacilli, likely contamination- repeat BCx, start IV Vancomycin on 05/22, consult cardiology due to h/o AVR - Pulmonary consulted, appreciate recommendations - Consulted cardiology, appreciate recommendations ARF on ?CKD stage III- IMPROVING: - Urine Cr, sodium, and potassium- reviewed - Renal US- The kidneys are atrophic and without hydronephrosis. Normal arterial Doppler. No evidence for a significant stenotic process. - Gentle IVF @ 35 ml/hr- d/c'd - Hold nephrotoxic agents - Consulted nephrology, appreciate recommendations Hyperkalemia- RESOLVED: - Treated w/ 30 gm Kayexalate on 05/20 - Hold KCL 20 mEq HS - Follow PRP HTN- CONTROLLED: Lisinopril 20 mg daily held due to ARF h/o a.fib: - Hold Coumadin due to supratherapuetic INR of 3.8 - Metoprolol Succinate 50 mg QAM changed to Lopressor 12.5 mg BID, ASA 81 mg daily, Lopressor h/o CHF w/ most recent hospitalization due to exacerbation on 05/07- ?possible exacerbation: - Given IV 40 mg Lasix on 05/20; Lasix 40 mg QAM held; continue IV Lasix 40 mg daily - Most recent ECHO 05/08/17- reviewed h/o AVR- mechanical: Coumadin w/ INR goal of 2-3 Hyperlipidemia: Continue Crestor 20 mg HS Depression: Sertraline dose decreased 50 mg HS GI Prophylaxis: IV Zofran PRN, MiraLAX PRN DVT Prophylaxis: Coumadin Code Status: LEVEL I, FULL Dispo: From home- neonatal social worker consulted - PT/OT evaluations- recommended acute rehab
--- NOTE | 2017-05-22 13:37 | Nephrology Progress Note ---
Nephrology Progress Note Date of Service May 22, 2017. Chief Complaint ZARIA Subjective No acute events overnight. Ree was seen and evaluated in her hospital room this morning. She had no complaints. Ree denies pain. She denies shortness of breath. No urinary complaints. Review of Systems A complete review of systems was performed. Pertinent positives are noted above. All other systems are negative. Vital Signs Last 8 Hrs Date Time Temp Pulse Resp B/P (MAP) Pulse Ox O2 Delivery O2 Flow Rate FiO2 05/22/17 12:00 36.7 81 18 95/64 (74) 95 Nasal Cannula 2.0 05/22/17 11:42 Nasal Cannula 2.0 05/22/17 10:42 92 05/22/17 08:00 Nasal Cannula 2.0 05/22/17 07:32 36.5 81 20 105/68 (80) 94 Nasal Cannula 2.0 05/22/17 07:21 77 14 95 Nasal Cannula 2.0 Last Recorded Weight Weight (Kilograms): 103.600 Physical Exam General Appearance: WD/WN, no apparent distress Head: normocephalic, atraumatic Eyes: normal inspection, sclerae normal ENT: normal ENT inspection, pharynx normal Neck: supple, no JVD Respiratory/Chest: lungs clear, no respiratory distress, no accessory muscle use Cardiovascular: regular rate, rhythm Back: no CVA tenderness Abdomen/GI: non tender, soft Extremities/Musculoskelatal: normal inspection, no pedal edema Neurologic/Psych: alert, normal mood/affect Family History Negative for CKD/ESRD Social History Alcohol Use: none Marital Status: Housing Status: lives with family 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 Never a smoker. Laboratory Results Past 24 Hours 05/22/17 06:34 Red Blood Count 3.88, Mean Corpuscular Volume 91.0, Mean Corpuscular Hemoglobin 28.6, Mean Corpuscular Hemoglobin Concent 31.4, Mean Platelet Volume 11.7, Neutrophils (%) (Auto) 78.6, Lymphocytes (%) (Auto) 10.0, Monocytes (%) (Auto) 8.5, Eosinophils (%) (Auto) 2.5, Basophils (%) (Auto) 0.1, Neutrophils # (Auto) 5.23, Lymphocytes # (Auto) 0.67, Monocytes # (Auto) 0.57, Eosinophils # (Auto) 0.17, Basophils # (Auto) 0.01 05/22/17 06:34 Test 05/22/17 06:34 White Blood Count 6.67 K/uL (4.8-10.8) Red Blood Count 3.88 M/uL (4.2-5.4) Hemoglobin 11.1 g/dL (12.0-16.0) Hematocrit 35.3 % (37-47) Mean Corpuscular Volume 91.0 fL (80-100) Mean Corpuscular Hemoglobin 28.6 pg (25-34) Mean Corpuscular Hemoglobin Concent 31.4 g/dl (32-36) Platelet Count 203 K/uL (130-400) Mean Platelet Volume 11.7 fL (7.4-10.4) Neutrophils (%) (Auto) 78.6 % Lymphocytes (%) (Auto) 10.0 % Monocytes (%) (Auto) 8.5 % Eosinophils (%) (Auto) 2.5 % Basophils (%) (Auto) 0.1 % Neutrophils # (Auto) 5.23 K/uL (1.4-6.5) Lymphocytes # (Auto) 0.67 K/uL (1.2-3.4) Monocytes # (Auto) 0.57 K/uL (0.11-0.59) Eosinophils # (Auto) 0.17 K/uL (0-0.5) Basophils # (Auto) 0.01 K/uL (0-0.2) RDW Standard Deviation 48.5 fL (36.4-46.3) RDW Coefficient of Variation 14.5 % (11.5-14.5) Immature Granulocyte % (Auto) 0.3 % Immature Granulocyte # (Auto) 0.02 K/uL (0.00-0.02) Prothrombin Time 36.5 SECONDS (9.0-12.0) Prothromb Time International Ratio 3.2 (0.9-1.1) Anion Gap 7.0 mmol/L (3-11) Est Creatinine Clear Calc Drug Dose 19.0 ml/min Estimated GFR () 18.6 Estimated GFR (Non- 16.1 BUN/Creatinine Ratio 23.9 (10-20) Calcium Level 7.7 mg/dl (8.5-10.1) Allergies Coded Allergies: Digoxin (Verified Adverse Reaction, Intermediate, N/V, 05/20/17) Morphine (Verified Adverse Reaction, Intermediate, HALLUCINATIONS AND AGGRESSION, 05/20/17) Medications Current Inpatient Medications Medications (Trade) Dose Ordered Sig/Jenifer Route Start Time Stop Time Status Last Admin Dose Admin Aspirin (Ecotrin Tab) 81 mg QAM PO 05/21/17 09:00 06/20/17 08:59 05/22/17 07:32 81 MG Sertraline HCl (Zoloft Tab) 50 mg HS PO 05/20/17 21:00 06/19/17 20:59 05/21/17 21:08 50 MG Warfarin Sodium (Coumadin Tab) 3 mg DAILY@16 PO 05/21/17 16:00 06/20/17 15:59 Future Hold Metoprolol Tartrate (Lopressor Tab) 12.5 mg BID PO 05/20/17 21:00 06/19/17 20:59 05/22/17 07:33 12.5 MG Acetaminophen (Tylenol Tab) 650 mg Q4H PRN PO 05/20/17 18:30 06/19/17 18:29 Ondansetron HCl (Zofran Inj) 4 mg Q6H PRN IV 05/20/17 18:30 06/19/17 18:29 Levalbuterol (Xopenex 1.25MG/ 0.5ML Neb) 1.25 mg Q8R INH 05/21/17 00:00 06/20/17 00:00 05/22/17 07:21 1.25 MG Ipratropium [place] (Atrovent 0.02% 0.5MG/2.5ML Neb) 0.5 mg Q8R INH 05/21/17 00:00 06/20/17 00:00 05/22/17 07:21 0.5 MG Polyethylene (Miralax Powder Packet) 17 gm DAILY PRN PO 05/21/17 09:15 06/20/17 09:14 Rosuvastatin Calcium (Crestor Tab) 20 mg HS PO 05/21/17 21:00 06/20/17 20:59 05/21/17 21:08 20 MG Vancomycin HCl 1000 mg/Sodium Chloride 270 ml @ 125 mls/hr Q12 IV 05/22/17 21:00 05/24/17 20:59 UNV Impression (1) Acute kidney injury (2) Chronic kidney disease (CKD) (3) CHF exacerbation Patient admitted w/ acute on chronic kidney injury, hypotension and recurrent CHF. CXR films show cardiomegaly and pulmonary vascular congestion. Urine microscopy and UPCR are pending. Renal US revealed 9 cm kidneys w/ cortical thinning c/w microvascular disease. There was no hydronephrosis reported. Patient has h/o ascending aortic aneurysm repair and is s/p AVR. Clinically suspect renal impairment is due to impaired perfusion associated w/ CHF. Recommendations ACUTE KIDNEY INJURY: -- Hold Lisinopril -- UA notable for pyuria -- FeNa is 1% while on diuretic therapy -- Renal US report was reviewed today and negative for obstruction. Renal artery doppler was negative for stenosis. -- Monitor serial PRP CHRONIC KIDNEY DISEASE: -- Baseline creatinine 1.3. Renal US shows 9 cm kidneys w/ cortical thinning c/ w microvascular disease HYPERTENSION: -- Blood pressure is relatively low. Hold Lisinopril CONGESTIVE HEART FAILURE: -- Recommend follow up echocardiogram to reassess AVR and LV function
[2017-05-22] MEDS ORDERED: VANCOMYCIN CONSULT ACTIVE PRN (13:45)
--- NOTE | 2017-05-22 13:58 | Pharmacy Progress Note ---
Pharmacy Antibiotic Consult Date of Service: May 22, 2017. Pharmacy Dosing Scope Pharmacy is consulted to initiate vancomycin IV dosing therapy, order appropriate labs and adjust drug dose/frequency. Subjective The patient is a 72 year old female admitted on May 20, 2017 at 18:32. Objective Height (Feet): 4 Height (Inches): 11.00 Weight (Kilograms): 103.600 Lab Results (24hrs): Test 05/22/17 06:34 White Blood Count 6.67 K/uL (4.8-10.8) Red Blood Count 3.88 M/uL (4.2-5.4) Hemoglobin 11.1 g/dL (12.0-16.0) Hematocrit 35.3 % (37-47) Mean Corpuscular Volume 91.0 fL (80-100) Mean Corpuscular Hemoglobin 28.6 pg (25-34) Mean Corpuscular Hemoglobin Concent 31.4 g/dl (32-36) Platelet Count 203 K/uL (130-400) Mean Platelet Volume 11.7 fL (7.4-10.4) Neutrophils (%) (Auto) 78.6 % Lymphocytes (%) (Auto) 10.0 % Monocytes (%) (Auto) 8.5 % Eosinophils (%) (Auto) 2.5 % Basophils (%) (Auto) 0.1 % Neutrophils # (Auto) 5.23 K/uL (1.4-6.5) Lymphocytes # (Auto) 0.67 K/uL (1.2-3.4) Monocytes # (Auto) 0.57 K/uL (0.11-0.59) Eosinophils # (Auto) 0.17 K/uL (0-0.5) Basophils # (Auto) 0.01 K/uL (0-0.2) RDW Standard Deviation 48.5 fL (36.4-46.3) RDW Coefficient of Variation 14.5 % (11.5-14.5) Immature Granulocyte % (Auto) 0.3 % Immature Granulocyte # (Auto) 0.02 K/uL (0.00-0.02) Prothrombin Time 36.5 SECONDS (9.0-12.0) Prothromb Time International Ratio 3.2 (0.9-1.1) Sodium Level 142 mmol/L (136-145) Potassium Level 4.3 mmol/L (3.5-5.1) Chloride Level 106 mmol/L (98-107) Carbon Dioxide Level 29 mmol/L (21-32) Anion Gap 7.0 mmol/L (3-11) Blood Urea Nitrogen 67 mg/dl (7-18) Creatinine 2.80 mg/dl (0.60-1.20) Est Creatinine Clear Calc Drug Dose 19.0 ml/min Estimated GFR () 18.6 Estimated GFR (Non- 16.1 BUN/Creatinine Ratio 23.9 (10-20) Random Glucose 85 mg/dl (70-99) Calcium Level 7.7 mg/dl (8.5-10.1) Micro Results: Item Value Date Time Blood Culture Ordered 05/22/17 1322 Blood Pending Blood Culture Ordered 05/22/17 1322 Blood Pending Blood Culture - Preliminary Resulted 05/20/17 1520 Blood NO GROWTH TO DATE. Blood Culture - Preliminary Resulted 05/20/17 1510 Blood Gram Positive Bacilli Assessment & Plan Patient started on vancomycin due to positive blood cultures (1/2 positive for Gm+ bacilli) Vancomycin: * Patient received LD of vancomycin 2100 mg (~25 mg/kg) x 1 * Will hold further doses today, and obtain a random level in the am to assist with further dosing; estimated level tomorrow am still >15 mcg/ml (goal 15-20 mcg/ml for bacteremia * Estimated kinetics: t1/2>24 hrs, ke~0.02 hr-1, CrCl ~19 ml/min Pharmacy will continue to follow and will adjust dose/frequency as necessary. Thank you
[2017-05-22] MEDS ORDERED: VANCOMYCIN INJ 2,100 MG in SODIUM CHLORIDE 0.9% 500ML 500 ML IV ONE (14:00)
[2017-05-22] MEDS: ROSUVASTATIN CALCIUM 20 MG TAB PO SCH (20:49)
[2017-05-22] MEDS: SERTRALINE HCL 100 MG TAB PO SCH (20:50)
[2017-05-22] MEDS ORDERED: VANCOMYCIN INJ 1,000 MG in SODIUM CHLORIDE 0.9% 250ML 250 ML IV SCH (21:00)
[2017-05-23] VITALS (9 sets, daily range): BP systolic 92–109; BP diastolic 54–68; PULSE 74–96; TEMP 36.4–36.5; O2SAT 91–98
[2017-05-23 06:29] LABS: BASO % 0.3 %; BASO ABS # 0.02 K/uL (0-0.2); COMPLETE YES; EOS % 3.8 %; HEMATOCRIT 36.3 % (37-47); IG% 0.5 %; LYMPH % 13.1 %; LYMPH ABS # 0.83 K/uL (1.2-3.4); MEAN CELL VOLUME 91.4 fL (80-100); MEAN CORPUSCULAR HEMOGLOBIN 28.2 pg (25-34); MEAN CORPUSCULAR HGB CONC 30.9 g/dl (32-36); MEAN PLATELET VOLUME 10.8 fL (7.4-10.4); MONO % 11.2 %; NEUT % 71.1 %; PLATELET COUNT 199 K/uL (130-400); RED BLOOD COUNT 3.97 M/uL (4.2-5.4); WHITE BLOOD COUNT 6.34 K/uL (4.8-10.8)
[2017-05-23 06:40] LABS: PROTHROMBIN TIME (PATIENT) 22.4 SECONDS (9.0-12.0)
[2017-05-23 07:11] LABS: BUN/CREATININE RATIO 29.6 (10-20); CALCIUM 7.8 mg/dl (8.5-10.1); POTASSIUM 4.2 mmol/L (3.5-5.1)
[2017-05-23] MEDS: LEVALBUTEROL 1.25MG/0.5ML NEB INH SCH ×3 (07:45→23:29)
[2017-05-23] MEDS: IPRATROPIUM BROMIDE NEB SOLN 0.02% 2.5 ML VIAL INH SCH ×3 (07:45→23:29)
[2017-05-23] MEDS: ASPIRIN 81 MG ECTAB PO SCH (07:47)
[2017-05-23] MEDS: METOPROLOL TARTRATE 25 MG TAB PO SCH ×2 (07:47→21:46)
--- NOTE | 2017-05-23 08:37 | Pharmacy Progress Note ---
Pharmacy Abx Dose Progress Nt Date of Service May 23, 2017. Pharmacy Dosing Scope The patient is currently receiving the following antimicrobial agents per Pharmacy consult: Vancomycin: dosed based upon levels Objective Height (Feet): 4 Height (Inches): 11.00 Weight (Kilograms): 104.300 Vital Signs (Past 12Hrs) Vital Signs Past 12 Hours Date Time Temp Pulse Resp B/P (MAP) Pulse Ox O2 Delivery O2 Flow Rate FiO2 05/23/17 08:04 36.4 87 18 102/54 (70) 94 Nasal Cannula 05/23/17 08:00 96 Nasal Cannula 2.0 05/23/17 07:25 87 16 96 Nasal Cannula 2.0 05/23/17 04:00 Nasal Cannula 2.0 05/23/17 03:33 36.5 85 21 92/55 (67) 98 Nasal Cannula 2.0 05/22/17 23:59 Nasal Cannula 2.0 05/22/17 23:14 36.5 87 21 96/59 (71) 96 Nasal Cannula 2.0 05/22/17 20:50 62 111/59 (76) Lab Results (24Hrs) Laboratory Tests (24 Hours) Test 05/23/17 06:16 White Blood Count 6.34 K/uL (4.8-10.8) Red Blood Count 3.97 M/uL (4.2-5.4) L Hemoglobin 11.2 g/dL (12.0-16.0) L Hematocrit 36.3 % (37-47) L Mean Corpuscular Volume 91.4 fL (80-100) Mean Corpuscular Hemoglobin 28.2 pg (25-34) Mean Corpuscular Hemoglobin Concent 30.9 g/dl (32-36) L Platelet Count 199 K/uL (130-400) Mean Platelet Volume 10.8 fL (7.4-10.4) H Neutrophils (%) (Auto) 71.1 % Lymphocytes (%) (Auto) 13.1 % Monocytes (%) (Auto) 11.2 % Eosinophils (%) (Auto) 3.8 % Basophils (%) (Auto) 0.3 % Neutrophils # (Auto) 4.51 K/uL (1.4-6.5) Lymphocytes # (Auto) 0.83 K/uL (1.2-3.4) L Monocytes # (Auto) 0.71 K/uL (0.11-0.59) H Eosinophils # (Auto) 0.24 K/uL (0-0.5) Basophils # (Auto) 0.02 K/uL (0-0.2) Micro Results Date/Time Source Procedure Growth Status 05/22/17 13:56 Blood Blood Culture Pending Received 05/22/17 13:45 Blood Blood Culture Pending Received 05/20/17 15:20 Blood Blood Culture - Preliminary NO GROWTH TO DATE. Resulted 05/20/17 15:10 Blood Blood Culture - Preliminary Gram Positive Bacilli Resulted Assessment & Plan Patient on vancomycin due to positive blood cultures. 1/2 blood cultures positive for Gm+ bacilli, repeat blood cultures are pending. ID is consulted. Vancomycin: * Random vancomycin level this am was therapeutic at ~19 mcg/ml (goal 15-20 mcg/ ml for bacteremia) * Scr improving more today, from 2.8 to 2.0 mg/dL (CrCl ~26 ml/min); however baseline closer to 1.3 mg/dL * Will continue to dose by levels until renal function appears stable * Will give vancomycin 1250 mg (~12 mg/kg) x 1 today to maintain an estimated peak ~30 mcg/ml * Will order another random in the am to assist with further dosing
--- NOTE | 2017-05-23 10:00 | Hospitalist Progress Note ---
Hospitalist Progress Note Date of Service May 23, 2017. Subjective Pt evaluation today including: conversation w/ patient, physical exam, chart review, lab review, review of inpatient medication list Voiding: no voiding problems, no incontinence Patient states she is feeling well this AM. She is eating and drinking OK. SOB continues to improve. +chronic nonproductive cough. Patient denies any fever, chills, sweats, lightheadedness, dizziness, vision changes, CP, palpitations, edema, wheezing, abdominal pain, nausea, vomiting, diarrhea, urinary symptoms, melena, numbness/tingling, weakness, muscle/joint pain, anxiety/depression, active bleeding, or new skin discoloration/changes. Medications Current Inpatient Medications Medications (Trade) Dose Ordered Sig/Jenifer Route Start Time Stop Time Status Last Admin Dose Admin Aspirin (Ecotrin Tab) 81 mg QAM PO 05/21/17 09:00 06/20/17 08:59 05/23/17 07:47 81 MG Sertraline HCl (Zoloft Tab) 50 mg HS PO 05/20/17 21:00 06/19/17 20:59 05/22/17 20:50 50 MG Warfarin Sodium (Coumadin Tab) 3 mg DAILY@16 PO 05/21/17 16:00 06/20/17 15:59 Future Hold Metoprolol Tartrate (Lopressor Tab) 12.5 mg BID PO 05/20/17 21:00 06/19/17 20:59 05/23/17 07:47 12.5 MG Acetaminophen (Tylenol Tab) 650 mg Q4H PRN PO 05/20/17 18:30 06/19/17 18:29 Ondansetron HCl (Zofran Inj) 4 mg Q6H PRN IV 05/20/17 18:30 06/19/17 18:29 Levalbuterol (Xopenex 1.25MG/ 0.5ML Neb) 1.25 mg Q8R INH 05/21/17 00:00 06/20/17 00:00 05/23/17 07:45 1.25 MG Ipratropium [place] (Atrovent 0.02% 0.5MG/2.5ML Neb) 0.5 mg Q8R INH 05/21/17 00:00 06/20/17 00:00 05/23/17 07:45 0.5 MG Polyethylene (Miralax Powder Packet) 17 gm DAILY PRN PO 05/21/17 09:15 06/20/17 09:14 Rosuvastatin Calcium (Crestor Tab) 20 mg HS PO 05/21/17 21:00 06/20/17 20:59 05/22/17 20:49 20 MG Vancomycin HCl (Consult) 1 ea UD PRN N/A 05/22/17 13:45 06/21/17 13:44 Vancomycin HCl 1250 mg/Sodium Chloride 275 ml @ 125 mls/hr TODAY@1400 ONCE IV 05/23/17 14:00 05/23/17 16:11 Objective Vital Signs Date Time Temp Pulse Resp B/P (MAP) Pulse Ox O2 Delivery O2 Flow Rate FiO2 05/23/17 08:04 36.4 87 18 102/54 (70) 94 Nasal Cannula 05/23/17 08:00 96 Nasal Cannula 2.0 05/23/17 07:25 87 16 96 Nasal Cannula 2.0 05/23/17 04:00 Nasal Cannula 2.0 05/23/17 03:33 36.5 85 21 92/55 (67) 98 Nasal Cannula 2.0 05/22/17 23:59 Nasal Cannula 2.0 05/22/17 23:14 36.5 87 21 96/59 (71) 96 Nasal Cannula 2.0 05/22/17 20:50 62 111/59 (76) 05/22/17 20:07 36.5 88 18 99/61 (74) 94 Nasal Cannula 05/22/17 20:00 96 Nasal Cannula 2.0 05/22/17 19:59 80 16 96 Nasal Cannula 2.0 05/22/17 16:00 96 Nasal Cannula 2.0 05/22/17 15:52 80 16 96 Nasal Cannula 2.0 05/22/17 15:12 36.4 93 18 105/70 (82) 93 Nasal Cannula 2.0 05/22/17 12:00 36.7 81 18 95/64 (74) 95 Nasal Cannula 2.0 05/22/17 11:42 Nasal Cannula 2.0 05/22/17 10:42 92 Physical Exam General Appearance: no apparent distress, + obese, + pertinent finding (2L O2 nasal cannula ) Eyes: normal inspection, PERRL ENT: hearing grossly normal Neck: supple Respiratory/Chest: no respiratory distress, no accessory muscle use, + decreased breath sounds (throughout all lung jain ), + wheezing (mild expiratory wheeze throughout all lung jain ) Cardiovascular: regular rate, rhythm, + pertinent finding (systolic click ) Abdomen: normal bowel sounds, non tender, soft Extremities: no pedal edema, no calf tenderness Neurologic/Psychiatric: alert, normal mood/affect, oriented x 3 Skin: normal color, warm/dry, no rash Laboratory Results Last 24 Hours Test 05/23/17 06:16 White Blood Count 6.34 K/uL Red Blood Count 3.97 M/uL Hemoglobin 11.2 g/dL Hematocrit 36.3 % Mean Corpuscular Volume 91.4 fL Mean Corpuscular Hemoglobin 28.2 pg Mean Corpuscular Hemoglobin Concent 30.9 g/dl Platelet Count 199 K/uL Mean Platelet Volume 10.8 fL Neutrophils (%) (Auto) 71.1 % Lymphocytes (%) (Auto) 13.1 % Monocytes (%) (Auto) 11.2 % Eosinophils (%) (Auto) 3.8 % Basophils (%) (Auto) 0.3 % Neutrophils # (Auto) 4.51 K/uL Lymphocytes # (Auto) 0.83 K/uL Monocytes # (Auto) 0.71 K/uL Eosinophils # (Auto) 0.24 K/uL Basophils # (Auto) 0.02 K/uL RDW Standard Deviation 49.0 fL RDW Coefficient of Variation 14.5 % Immature Granulocyte % (Auto) 0.5 % Immature Granulocyte # (Auto) 0.03 K/uL Prothrombin Time 22.4 SECONDS Prothromb Time International Ratio 2.0 Sodium Level 142 mmol/L Potassium Level 4.2 mmol/L Chloride Level 106 mmol/L Carbon Dioxide Level 31 mmol/L Anion Gap 5.0 mmol/L Blood Urea Nitrogen 59 mg/dl Creatinine 2.00 mg/dl Est Creatinine Clear Calc Drug Dose 26.8 ml/min Estimated GFR () 28.0 Estimated GFR (Non- 24.2 BUN/Creatinine Ratio 29.6 Random Glucose 91 mg/dl Calcium Level 7.8 mg/dl Random Vancomycin Level 19.9 mcg/ml Assessment and Plan Patient is a 72-year-old female presents emergency department with complaints of chronic shortness of breath, productive cough and intermittent fever. Previously treated for community-acquired pneumonia which required intubation at [facility]. She has been on multiple antibiotics (Augmentin, doxycycline and most recently Levaquin) with minimal improvement. Now found to be in acute renal failure Acute on chronic respiratory failure, ?secondary chronic infectious process vs CHF exacerbation vs other etiology: - Admit to tele for cardiac monitoring- no acute events overnight -- Transfer to med/surg on 05/23 - No indication for antibiotic treatment at this time- vitals stable, no WBC, no sputum production - DuoNebs q8 hrs - O2 protocol, wean as tolerated- wears 3L O2 HS - Checked ESR, CRP, and procalcitonin - BCx- 1 set gram + bacilli, likely contamination- repeat BCx pending; start IV Vancomycin on 05/22, consult cardiology and ID due to h/o AVR - Pulmonary consulted, appreciate recommendations - Consulted cardiology, appreciate recommendations - ID consulted, appreciate recommendations ARF on ?CKD stage III- IMPROVING: - Urine Cr, sodium, and potassium- reviewed - Renal US- The kidneys are atrophic and without hydronephrosis. Normal arterial Doppler. No evidence for a significant stenotic process. - Gentle IVF @ 35 ml/hr- d/c'd - Hold nephrotoxic agents - Consulted nephrology, appreciate recommendations Hyperkalemia- RESOLVED: - Treated w/ 30 gm Kayexalate on 05/20 - Hold KCL 20 mEq HS - Follow PRP HTN- CONTROLLED: Lisinopril 20 mg daily held due to ARF h/o a.fib: - Hold Coumadin due to supratherapuetic INR of 3.8 on 05/21- resume Coumadin on , INR is 2.0 - Metoprolol Succinate 50 mg QAM changed to Lopressor 12.5 mg BID, ASA 81 mg daily Acute on chronic systolic CHF: - Given IV 40 mg Lasix on 05/20; Lasix 40 mg QAM held; continue IV Lasix 40 mg daily - Most recent ECHO 05/08/17- reviewed h/o AVR- mechanical: Coumadin w/ INR goal of 2-3 Hyperlipidemia: Continue Crestor 20 mg HS Depression: Sertraline dose decreased 50 mg HS GI Prophylaxis: IV Zofran PRN, MiraLAX PRN DVT Prophylaxis: Coumadin Code Status: LEVEL I, FULL Dispo: From home- social science research assistant consulted - PT/OT evaluations- recommended acute rehab
--- NOTE | 2017-05-23 10:42 | Nephrology Progress Note ---
Nephrology Progress Note Date of Service May 23, 2017. Chief Complaint ZARIA Subjective No acute events overnight. No complaints this morning. Denies shortness of breath. No pain. Ambulating without difficulty. Review of Systems A complete review of systems was performed. Pertinent positives are noted above. All other systems are negative. Vital Signs Last 8 Hrs Date Time Temp Pulse Resp B/P (MAP) Pulse Ox O2 Delivery O2 Flow Rate FiO2 05/23/17 10:07 36.4 87 18 94 2.0 05/23/17 08:04 36.4 87 18 102/54 (70) 94 Nasal Cannula 05/23/17 08:00 96 Nasal Cannula 2.0 05/23/17 07:25 87 16 96 Nasal Cannula 2.0 05/23/17 04:00 Nasal Cannula 2.0 05/23/17 03:33 36.5 85 21 92/55 (67) 98 Nasal Cannula 2.0 Last Recorded Weight Weight (Kilograms): 104.300 Physical Exam General Appearance: no apparent distress, + obese Head: normocephalic, atraumatic Eyes: normal inspection, sclerae normal ENT: normal ENT inspection, pharynx normal Neck: supple, no JVD Respiratory/Chest: lungs clear, no respiratory distress, no accessory muscle use Cardiovascular: regular rate, rhythm, no murmur Abdomen/GI: non tender, soft Extremities/Musculoskelatal: normal inspection, no pedal edema Neurologic/Psych: alert, oriented x 3 Family History Negative for CKD/ESRD Social History Alcohol Use: none Marital Status: Housing Status: lives with family 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 Laboratory Results Past 24 Hours 05/23/17 06:16 Red Blood Count 3.97, Mean Corpuscular Volume 91.4, Mean Corpuscular Hemoglobin 28.2, Mean Corpuscular Hemoglobin Concent 30.9, Mean Platelet Volume 10.8, Neutrophils (%) (Auto) 71.1, Lymphocytes (%) (Auto) 13.1, Monocytes (%) (Auto) 11.2, Eosinophils (%) (Auto) 3.8, Basophils (%) (Auto) 0.3, Neutrophils # (Auto ) 4.51, Lymphocytes # (Auto) 0.83, Monocytes # (Auto) 0.71, Eosinophils # (Auto ) 0.24, Basophils # (Auto) 0.02 05/23/17 06:16 Test 05/23/17 06:16 White Blood Count 6.34 K/uL (4.8-10.8) Red Blood Count 3.97 M/uL (4.2-5.4) Hemoglobin 11.2 g/dL (12.0-16.0) Hematocrit 36.3 % (37-47) Mean Corpuscular Volume 91.4 fL (80-100) Mean Corpuscular Hemoglobin 28.2 pg (25-34) Mean Corpuscular Hemoglobin Concent 30.9 g/dl (32-36) Platelet Count 199 K/uL (130-400) Mean Platelet Volume 10.8 fL (7.4-10.4) Neutrophils (%) (Auto) 71.1 % Lymphocytes (%) (Auto) 13.1 % Monocytes (%) (Auto) 11.2 % Eosinophils (%) (Auto) 3.8 % Basophils (%) (Auto) 0.3 % Neutrophils # (Auto) 4.51 K/uL (1.4-6.5) Lymphocytes # (Auto) 0.83 K/uL (1.2-3.4) Monocytes # (Auto) 0.71 K/uL (0.11-0.59) Eosinophils # (Auto) 0.24 K/uL (0-0.5) Basophils # (Auto) 0.02 K/uL (0-0.2) RDW Standard Deviation 49.0 fL (36.4-46.3) RDW Coefficient of Variation 14.5 % (11.5-14.5) Immature Granulocyte % (Auto) 0.5 % Immature Granulocyte # (Auto) 0.03 K/uL (0.00-0.02) Prothrombin Time 22.4 SECONDS (9.0-12.0) Prothromb Time International Ratio 2.0 (0.9-1.1) Anion Gap 5.0 mmol/L (3-11) Est Creatinine Clear Calc Drug Dose 26.8 ml/min Estimated GFR () 28.0 Estimated GFR (Non- 24.2 BUN/Creatinine Ratio 29.6 (10-20) Calcium Level 7.8 mg/dl (8.5-10.1) Random Vancomycin Level 19.9 mcg/ml Allergies Coded Allergies: Digoxin (Verified Adverse Reaction, Intermediate, N/V, 05/20/17) Morphine (Verified Adverse Reaction, Intermediate, HALLUCINATIONS AND AGGRESSION, 05/20/17) Medications Current Inpatient Medications Medications (Trade) Dose Ordered Sig/Jenifer Route Start Time Stop Time Status Last Admin Dose Admin Aspirin (Ecotrin Tab) 81 mg QAM PO 05/21/17 09:00 06/20/17 08:59 05/23/17 07:47 81 MG Sertraline HCl (Zoloft Tab) 50 mg HS PO 05/20/17 21:00 06/19/17 20:59 05/22/17 20:50 50 MG Warfarin Sodium (Coumadin Tab) 3 mg DAILY@16 PO 05/21/17 16:00 06/20/17 15:59 Future hold Metoprolol Tartrate (Lopressor Tab) 12.5 mg BID PO 05/20/17 21:00 06/19/17 20:59 05/23/17 07:47 12.5 MG Acetaminophen (Tylenol Tab) 650 mg Q4H PRN PO 05/20/17 18:30 06/19/17 18:29 Ondansetron HCl (Zofran Inj) 4 mg Q6H PRN IV 05/20/17 18:30 06/19/17 18:29 Levalbuterol (Xopenex 1.25MG/ 0.5ML Neb) 1.25 mg Q8R INH 05/21/17 00:00 06/20/17 00:00 05/23/17 07:45 1.25 MG Ipratropium [place] (Atrovent 0.02% 0.5MG/2.5ML Neb) 0.5 mg Q8R INH 05/21/17 00:00 06/20/17 00:00 05/23/17 07:45 0.5 MG Polyethylene (Miralax Powder Packet) 17 gm DAILY PRN PO 05/21/17 09:15 06/20/17 09:14 Rosuvastatin Calcium (Crestor Tab) 20 mg HS PO 05/21/17 21:00 06/20/17 20:59 05/22/17 20:49 20 MG Vancomycin HCl (Consult) 1 ea UD PRN N/A 05/22/17 13:45 06/21/17 13:44 Vancomycin HCl 1250 mg/Sodium Chloride 275 ml @ 125 mls/hr TODAY@1400 ONCE IV 05/23/17 14:00 05/23/17 16:11 Furosemide 40 mg/ Syringe 4 ml @ 4 mls/min DAILY IV 05/24/17 08:00 06/23/17 08:59 Impression (1) Acute kidney injury (2) Chronic kidney disease (CKD) (3) CHF exacerbation Patient admitted w/ acute on chronic kidney injury, hypotension and recurrent CHF. CXR films show cardiomegaly and pulmonary vascular congestion. Urine microscopy and UPCR are pending. Renal US revealed 9 cm kidneys w/ cortical thinning c/w microvascular disease. There was no hydronephrosis reported. Patient has h/o ascending aortic aneurysm repair and is s/p AVR. Clinically suspect renal impairment is due to impaired perfusion associated w/ CHF. Recommendations ACUTE KIDNEY INJURY: -- Hold Lisinopril -- UA notable for pyuria -- Renal US report was reviewed today and negative for obstruction. Renal artery doppler was negative for stenosis. -- Monitor serial PRP CHRONIC KIDNEY DISEASE: -- Baseline creatinine 1.3. Renal US shows 9 cm kidneys w/ cortical thinning c/ w microvascular disease HYPERTENSION: -- Blood pressure is relatively low. Hold Lisinopril CONGESTIVE HEART FAILURE: -- Patient will require cardiology follow up at discharge
--- NOTE | 2017-05-23 11:01 | PULMONARY PROGRESS NOTE ---
DATE: 05/23/2017 TIME: 10:30 a.m. SUBJECTIVE: The patient is feeling somewhat better. She is less short of breath than when she was admitted on the . She is still coughing. There has been no sputum. She notices wheezing. The patient states she has never smoked. As noted from her record, she had been hospitalized at [place] in April and was on a ventilator at that time. She was hospitalized here from May 07 until May 09 with congestive heart failure. She has a known left lower lobe nodule. OBJECTIVE: GENERAL: The patient was comfortable at rest. However, she was just sitting in bed. VITAL SIGNS: Temperature is 36.4. She has not had any significant fevers since admission. HEENT: Pupils were reactive. Mouth exam showed moderate crowding. The membranes were dry. HEART: Heart rate was 87. One could hear the pacemaker sounds. Blood pressure 102/54. LUNGS: Auscultation of the lung jain revealed mild wheezing bilaterally on expiration. Saturations were 94% on 2 liters. Respiratory rate was 20 breaths per minute. ABDOMEN: Obese. EXTREMITIES: Shows a scar from prior knee surgery. Trace edema was noted. LABORATORY DATA: White count today is 6.34. Hemoglobin 11.2. Platelets are 199,000. INR today is 2.0. Electrolytes today show sodium 142, potassium 4.2, chloride 106, bicarb 31. BUN was 59 with a creatinine of 2. Calcium level is 7.8. IMPRESSIONS: 1. Congestive heart failure. 2. Left lower lobe nodule-undetermined origin. 3. Blood cultures positive for gram positive cocci, repeat cultures pending. 4. Renal insufficiency. COMMENTS AND RECOMMENDATIONS: The patient did not appear in any distress. She was totally at rest, however. She did seem a little short of breath and just going through the exertion of sitting up in bed. She was started on vancomycin pending the results of her blood cultures. She is receiving levalbuterol and ipratropium every 8 hours and I do agree with that. Ultimately, she will need a followup on the nodule, but she clearly would not be a candidate for anything invasive at present.
[2017-05-23] MEDS ORDERED: VANCOMYCIN INJ 1,250 MG in SODIUM CHLORIDE 0.9% 250ML 250 ML IV ONE (14:00)
--- NOTE | 2017-05-23 14:13 | Progress Note ---
Progress Note Date of Service May 23, 2017. Progress Note ID Consult Dictated #[id number] A/P: 1. + blood culture - likely skin contaminant -No clinical signs of infection, suspect contaminant -Now off of abx, afebrile, repeat cultures pending -No new ID recs for now, call if repeat culture + -thank you
--- NOTE | 2017-05-23 14:31 | INFECT. DISEASE CONSULTATION ---
DATE OF CONSULTATION: 05/23/2017 DATE OF CONSULTATION: 05/23/2017. REQUESTING PHYSICIAN: Dr. Mary. HISTORY OF PRESENT ILLNESS: This is a 72-year-old female who was admitted from home with increasing shortness of breath and cough which has been going on since . She did have a previous admission to [facility] and was treated for community-acquired pneumonia. Her chest x-ray was done in the Emergency Room and was consistent with congestion. She has been afebrile since admission to the hospital. As part of her initial workup, blood cultures were obtained in the Emergency Room and 1 of 2 sets is growing corynebacterium. Repeat cultures are pending. She remains on vancomycin. She has not had leukocytosis since admission to the hospital. She was also found to have a significantly elevated creatinine of 4.2 on admission. This has improved to 2.0. She is being followed by nephrology. She did have a urinalysis which had greater than 30 WBCs; however, there was no bacteria identified. She remains afebrile. On my examination, she is out of bed to chair. She does admit to cough and some shortness of breath but states this has significantly improved since admission to the hospital. She denies any fevers or chills. She has no nausea, vomiting, diarrhea or abdominal pain. She denies any urinary symptoms. Her appetite is stable. All remaining review of systems are reviewed and are negative. PAST MEDICAL HISTORY: Significant for an aortic aneurysm, congestive heart failure with moderate aortic stenosis, DVT, hypertension, depression, hyperlipidemia. PAST SURGICAL HISTORY: Significant for aortic heart valve, pacemaker, repair of aneurysm, appendectomy, pericardial window, hysterectomy. FAMILY HISTORY: Noncontributory. SOCIAL HISTORY: Negative for tobacco use, alcohol use or drug use. ALLERGIES: INCLUDE MORPHINE AND DIGOXIN. CURRENT MEDICATIONS: Include Lasix, vancomycin, Crestor, MiraLax, Ecotrin, Xopenex, Atrovent, Zoloft, Lopressor, Tylenol and Zofran. Her vancomycin has been discontinued today. PHYSICAL EXAMINATION: VITAL SIGNS: She is afebrile, pulse 96, respiratory rate 16, blood pressure 108/68, oxygen saturation is 93-96% on 2 liters nasal cannula. GENERAL: She is awake, alert and oriented x3. She is in no acute distress. HEAD, EYES, EARS, NOSE, AND THROAT: Mucous membranes are moist. Extraocular muscles are intact. HEART: Irregular. LUNGS: Clear bilaterally. ABDOMEN: Soft and nontender. There is no edema. SKIN: Without rash. LABORATORY STUDIES: CBC reveals a white blood cell count of 6.3, hemoglobin 11.2 and platelets are 199. Sed rate on the was mildly elevated at 26. Chemistry panel today reveals a sodium of 142, potassium 4.2, chloride 106, bicarbonate 31, BUN 59, creatinine 2.0. Glucose is 91. Procalcitonin was 0.26 on the . Urinalysis is as reviewed. Her random vancomycin level today is 19.9. Initial blood cultures from the ER are showing corynebacterium in 1 bottle. Repeat blood cultures from the are pending. Chest x-ray in the Emergency Room showed a pacemaker, congestive heart failure and edema which was similar to x-ray on the . A renal ultrasound on the showed no hydronephrosis. ASSESSMENT AND PLAN: Positive blood culture with skin matt, likely contaminant. I agree that she can be followed off of antibiotics. Thank you for this consultation.
[2017-05-23] MEDS ORDERED: WARFARIN SOD 3 MG TAB PO ONE (17:00)
--- NOTE | 2017-05-23 21:17 | CARDIOLOGY CONSULTATION ---
DATE OF CONSULTATION: 05/23/2017 REFERRING PHYSICIAN: Dr. Llanos. INDICATIONS: Cardiac evaluation and history of congestive heart failure. HISTORY OF PRESENT ILLNESS: The patient is a complex cardiac patient, 72 years old with past history of aortic valve replacement with [employer] mechanical prosthesis 21 mm with associated Hemashield aortic root repair in 2004. She carries a history of prior sinoatrial david disease, status post pacemaker insertion 2004 and 2011 with device and lead and generator exchange in 2014. She carries a history of past paroxysmal atrial fibrillation, previously controlled in sinus rhythm with amiodarone, with amiodarone being discontinued in March 2017 after a course of clinical hospitalizations with pneumonia. Underlying issues include obesity, obstructive sleep apnea, and hypertension. The patient presents now on referral, history is noted, hospitalized at [facility] in March 2017 and April 2017 and then hospitalized at [facility] in May 2017 after initial 2 admissions treated for pulmonary exacerbations possible community-acquired pneumonia. Last admission, patient was treated for possible heart failure with IV diuretics. The patient initially did well and began to worsen, re-presented on 05/20/2017 with weakness, fatigue and cough. She had been seen by her primary care physician, put on Levaquin and prednisone per report. On presentation to the Emergency Room this admission she was found to have acute renal insufficiency, creatinine of 4.2. She has now responded to discontinuation of lisinopril and withdrawal of diuretics and gentle hydration with improvement in acute renal insufficiency. Of note, patient was hypotensive on initial presentation. She is referred now for ongoing management. Overall, patient feels improved since hospitalization. Denies any chest pains. Notes no tachypalpitations. Notes no further dizziness or lightheadedness. She has been appropriately anticoagulated per her description. Notes no bleeding difficulties, melena, hematochezia, dysuria or hematuria. Weight per patient has been stable. Notes no dizziness or lightheadedness currently. ALLERGIES: DIGOXIN AND MORPHINE. MEDICATIONS: Prior to hospitalization are Fosamax weekly, aspirin 81 mg per day, calcium with vitamin D 1 tablet a.m. and p.m., furosemide 40 mg per day, DuoNeb, levofloxacin as a recent medication, Prinivil 20 mg p.o. daily, metoprolol succinate 50 mg q.a.m., potassium chloride 20 mEq at bedtime, Crestor 20 mg p.o. daily, sertraline 100 mg at bedtime and warfarin 6 mg daily. PAST SURGICAL HISTORY: As described notable for aortic valve replacement with mechanical prosthesis in 2004 with aortic root and ascending aneurysm repair with Hemashield, prior remote appendectomy, oophorectomy, knee surgeries, abdominal hysterectomy. The patient has also undergone dual-chamber pacemaker insertion, last generator exchange November 2015. FAMILY HISTORY: Noncontributory. SOCIAL HISTORY: The patient is a nonsmoker, nondrinker. She lives in the [facility]. PHYSICAL EXAMINATION: VITAL SIGNS: Heart rate is 85, blood pressure is 94/59. HEENT: Normocephalic, atraumatic. NECK: Thin. There is no jugular venous distention with patient examined upright and at 30 degrees. LUNGS: Reveal diminished breath sounds at the bases. CARDIOVASCULAR: Regular with crisp mechanical valve sounds in the aortic valve position. There is no S3 gallop. ABDOMEN: Soft, obese, nontender. EXTREMITIES: Without cyanosis or clubbing. There is poor skin turgor. No signs of peripheral edema. NEUROLOGIC: The patient is answering questions appropriately. LABORATORY DATA: This morning, white cell count 6.3, hemoglobin is 11.2, hematocrit is 36.3, platelet count is 199. Sodium is 142, potassium is 4.2, chloride is 106, bicarbonate is 31, BUN is 59, creatinine is 2.0, down from initial creatinine of 4.2 on admission. EKG on admission demonstrates ventricular paced rhythm with underlying atrial fibrillation, rate of 69. IMPRESSION: Very complex 72-year-old female, prior aortic valve replacement and aortic root repair, history of paroxysmal, now persistent atrial fibrillation with prior sinoatrial david disease and single-chamber pacemaker in place. She has been hospitalized multiple times this spring including 2 hospitalizations at [facility] with probable pneumonia and multifactorial respiratory decline. She has now been rehospitalized after hospitalization recently at [facility] with possible congestive heart failure, clinical presentation now is notable for acute renal insufficiency. Exam today does not suggest acute congestive heart failure. Given rapid precipitation of renal insufficiency, will repeat echocardiogram to assess valve structures including mechanical prosthesis, will hold IV and oral furosemide. I agree with discontinuing lisinopril, would not resume. Her last echocardiogram generally demonstrated only mild LV dysfunction, though poor technical quality. Overall clinical status is improving. We will notably resume warfarin at usual dosing as INR has now dropped to 2 in the setting of mechanical prosthesis with warfarin dosing being halved on admission. Will follow along the patient in hospital. Notes about single positive blood culture are observed from infectious disease with blood culture in hospital suggestive of contaminant. Clinical changes recently have included discontinuation of chronic amiodarone use which may ultimately aid in patient's long-term pulmonary status, in addition, may necessitate increased dose of warfarin. We will follow the patient.
[2017-05-23] MEDS: ROSUVASTATIN CALCIUM 20 MG TAB PO SCH (21:46)
[2017-05-23] MEDS: SERTRALINE HCL 100 MG TAB PO SCH (21:47)
[2017-05-24 00:08] VITALS: BP 102/69; PULSE 80; TEMP 36.5; O2SAT 96
[2017-05-24] MEDS: BENZONATATE 100MG CAP PO SCH ×4 (00:22→19:35)
[2017-05-24] MEDS: IPRATROPIUM BROMIDE NEB SOLN 0.02% 2.5 ML VIAL INH SCH ×3 (07:23→23:07)
[2017-05-24] MEDS: LEVALBUTEROL 1.25MG/0.5ML NEB INH SCH ×3 (07:23→23:07)
[2017-05-24 07:30] VITALS: BP 117/73; PULSE 79; TEMP 36.5; O2SAT 95
[2017-05-24] MEDS: ASPIRIN 81 MG ECTAB PO SCH (07:58)
[2017-05-24] MEDS: METOPROLOL TARTRATE 25 MG TAB PO SCH ×2 (07:58→19:36)
[2017-05-24] MEDS ORDERED: FUROSEMIDE INJ 40 MG in SYRINGE 0 ML IV SCH (08:00)
--- NOTE | 2017-05-24 09:04 | Hospitalist Progress Note ---
Hospitalist Progress Note Date of Service May 24, 2017. Subjective Pt evaluation today including: conversation w/ patient, physical exam, chart review, lab review, review of studies, review of inpatient medication list Voiding: no voiding problems, no incontinence Patient states she is feeling well this AM. She is eating and drinking OK. +chronic cough w/ clear/white sputum production. SOB at baseline. PT initially recommended rehab, discussed w/ patient- she would like to work w/ PT today and see how shes does/get their recommendations, then she will consider /discuss w/ daughter. Patient denies any fever, chills, sweats, lightheadedness, dizziness, vision changes, CP, palpitations, edema, wheezing, abdominal pain, nausea, vomiting, diarrhea, urinary symptoms, melena, numbness/tingling, weakness, muscle/joint pain, anxiety/depression, active bleeding, or new skin discoloration/changes. Medications Current Inpatient Medications Medications (Trade) Dose Ordered Sig/Jenifer Route Start Time Stop Time Status Last Admin Dose Admin Aspirin (Ecotrin Tab) 81 mg QAM PO 05/21/17 09:00 06/20/17 08:59 05/24/17 07:58 81 MG Sertraline HCl (Zoloft Tab) 50 mg HS PO 05/20/17 21:00 06/19/17 20:59 05/23/17 21:47 50 MG Warfarin Sodium (Coumadin Tab) 3 mg DAILY@16 PO 05/21/17 16:00 06/20/17 15:59 Future hold 05/23/17 16:35 3 MG Metoprolol Tartrate (Lopressor Tab) 12.5 mg BID PO 05/20/17 21:00 06/19/17 20:59 05/24/17 07:58 12.5 MG Acetaminophen (Tylenol Tab) 650 mg Q4H PRN PO 05/20/17 18:30 06/19/17 18:29 05/24/17 00:22 650 MG Ondansetron HCl (Zofran Inj) 4 mg Q6H PRN IV 05/20/17 18:30 06/19/17 18:29 Levalbuterol (Xopenex 1.25MG/ 0.5ML Neb) 1.25 mg Q8R INH 05/21/17 00:00 06/20/17 00:00 05/24/17 07:23 1.25 MG Ipratropium [place] (Atrovent 0.02% 0.5MG/2.5ML Neb) 0.5 mg Q8R INH 05/21/17 00:00 06/20/17 00:00 05/24/17 07:23 0.5 MG Polyethylene (Miralax Powder Packet) 17 gm DAILY PRN PO 05/21/17 09:15 06/20/17 09:14 Rosuvastatin Calcium (Crestor Tab) 20 mg HS PO 05/21/17 21:00 06/20/17 20:59 05/23/17 21:46 20 MG Benzonatate (Tessalon Perles Cap) 100 mg TID PO 05/24/17 08:00 06/23/17 07:59 05/24/17 07:58 100 MG Objective Vital Signs Date Time Temp Pulse Resp B/P (MAP) Pulse Ox O2 Delivery O2 Flow Rate FiO2 05/24/17 08:00 Nasal Cannula 2.0 05/24/17 07:30 36.5 79 22 117/73 (88) 95 Nasal Cannula 2.0 05/24/17 00:08 36.5 80 17 102/69 (80) 96 Nasal Cannula 2.0 05/23/17 23:20 Nasal Cannula 2.0 05/23/17 21:44 89 109/66 (80) 05/23/17 16:42 Nasal Cannula 2.0 05/23/17 16:00 36.4 85 22 94/59 (71) 91 Nasal Cannula 2.0 05/23/17 15:48 74 16 91 Nasal Cannula 2.0 05/23/17 11:00 Nasal Cannula 2.0 05/23/17 10:39 36.5 96 16 108/68 (81) 93 Nasal Cannula 2.0 05/23/17 10:07 36.4 87 18 94 2.0 Physical Exam General Appearance: no apparent distress, + obese, + pertinent finding (2L O2 nasal cannula ) Eyes: normal inspection, PERRL ENT: hearing grossly normal Neck: supple Respiratory/Chest: lungs clear, no respiratory distress, no accessory muscle use, + decreased breath sounds (throughout) Cardiovascular: regular rate, rhythm, + pertinent finding (systolic click ) Abdomen: normal bowel sounds, non tender, soft Extremities: no pedal edema, no calf tenderness Neurologic/Psychiatric: alert, normal mood/affect, oriented x 3 Skin: normal color, warm/dry, no rash Laboratory Results Last 24 Hours Test 05/24/17 08:41 Assessment and Plan Patient is a 72-year-old female presents emergency department with complaints of chronic shortness of breath, productive cough and intermittent fever. Previously treated for community-acquired pneumonia which required intubation at [facility]. She has been on multiple antibiotics (Augmentin, doxycycline and most recently Levaquin) with minimal improvement. Now found to be in acute renal failure Acute on chronic respiratory failure, ?likely secondary to CHF exacerbation- RESOLVED: - Admit to tele for cardiac monitoring- no acute events overnight -- Transfer to med/surg on 05/23 - No indication for antibiotic treatment at this time- vitals stable, no WBC, no discolored sputum production - DuoNebs q8 hrs - O2 protocol, wean as tolerated- wears 3L O2 HS - Checked ESR, CRP, and procalcitonin - BCx- 1 set gram + bacilli, likely contamination -- Repeat BCx- NGTD -- Start IV Vancomycin on 05/22 and consulted ID- likely contaminant, d/c'd Vanco on 05/23 - Pulmonary consulted, appreciate recommendations -- LLL mass on 03/27/17. 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 Normal arterial Doppler. No evidence for a significant stenotic process. - Gentle IVF @ 35 ml/hr- d/c'd - Hold nephrotoxic agents - Consulted nephrology, appreciate recommendations Chronic cough: Tessalon pearls 100 mg TID Hyperkalemia- RESOLVED: - Treated w/ 30 gm Kayexalate on 05/20 - Hold KCL 20 mEq HS - Follow PRP HTN- CONTROLLED: Lisinopril 20 mg daily held due to ARF- do NOT resume at discharge per cardiology recommendations h/o a.fib: - Hold Coumadin due to supratherapuetic INR of 3.8 on 05/21- resume Coumadin on w/ INR of 2/0- follow PT/INR -- INR 1.8 on 05/24- increase Coumadin from 3 mg to 5 mg daily and begin IV Heparin gtt until INR ~2.5 - Metoprolol Succinate 50 mg QAM changed to Lopressor 12.5 mg BID, ASA 81 mg daily Acute on chronic systolic CHF: - Lasix 40 mg QAM held; treated w/ IV 40 mg Lasix 05/20-05/23 - Most recent ECHO 05/08/17- reviewed - Consulted cardiology, appreciate recommendations -- Held PO/IV Lasix on 05/24 -- Repeat ECHO h/o AVR- mechanical: Coumadin w/ INR goal of 2-3 Hyperlipidemia: Continue Crestor 20 mg HS Depression: Sertraline dose decreased 50 mg HS GI Prophylaxis: IV Zofran PRN, MiraLAX PRN DVT Prophylaxis: Coumadin + IV heparin Code Status: LEVEL I, FULL Dispo: From home- social insurance specialist consulted - PT/OT evaluations- recommended acute rehab
[2017-05-24 09:23] LABS: INR 1.8 (0.9-1.1)
[2017-05-24 09:35] LABS: BUN/CREATININE RATIO 30.7 (10-20); CALCIUM 8.5 mg/dl (8.5-10.1); CREATININE 1.5 mg/dl (0.60-1.20); MAGNESIUM 2.4 mg/dl (1.8-2.4); POTASSIUM 3.8 mmol/L (3.5-5.1)
--- NOTE | 2017-05-24 11:51 | ECHOCARDIOGRAM REPORT ---
*NOTICE TO RECEIVING LIBERTARIAN AGENCY This information is strictly Confidential and protected under [place] law. [place] law prohibits you from making any further disclosure of this information unless further disclosure is expressly permitted by the written consent of the person to whom it pertains or is authorized by law. A general authorization for the release of medical or other information is not sufficient for this purpose. Hospital accepts no responsibility if the information is made available to any other person, INCLUDING THE PATIENT. Interpretation Summary * Name: JAGDEEP VILLA Study Date: 05/24/2017 07:22 AM BP: 117/73 mmHg * Patient Location: .[id number]\[id number]\2 HR: 76 * : 1945 (M/d/yyyy) Gender: Female Height: 59 in * Age: 72 yrs Ethnicity: CA Weight: 229 lb * Ordering Physician: Hai Cancino * Referring Physician: Self, Referred * Performed By: Irene Rosario RCS * * Reason For Study: AVR * BSA: 2.0 m2 * -- Conclusions -- * The left ventricle is normal in size. * There is moderate concentric left ventricular hypertrophy. * Apical and septal wall motion abnormality c/w pacemaker activation is present. * Ejection Fraction = 45-50%. * There is a bi-leaflet ([employer]) aortic mechanical prosthesis. * Prosthetic valve leaflets are well visualized and are freely mobile * The gradient is normal for this prosthetic aortic valve. * The left atrium is moderately dilated. * The right atrium is severely dilated. * There is trace tricuspid regurgitation. * Right ventricular systolic pressure is elevated at 30-40mmHg. * Normal inferior vena cava diameter and respiratory variation suggests normal central venous pressure. * The aortic root is normal size. Procedure Details * A complete two-dimensional transthoracic echocardiogram was performed (2D, M-mode, Doppler and color flow Doppler). Left Ventricle * The left ventricle is normal in size. * There is moderate concentric left ventricular hypertrophy. * Ejection Fraction = 45-50%. * Apical wall motion abnormality may reflect pacemaker activation. Right Ventricle * The right ventricle is normal in size and function. * There is a pacemaker lead in the right ventricle. Atria * The left atrium is moderately dilated. * The right atrium is severely dilated. * No ASD detected; PFO is not assessed. Mitral Valve * The mitral valve anatomy is normal. * There is no mitral valve stenosis. * There is trace mitral regurgitation. Tricuspid Valve * The tricuspid valve is normal. * There is no tricuspid stenosis. * There is trace tricuspid regurgitation. * Right ventricular systolic pressure is elevated at 30-40mmHg. Aortic Valve * There is a bi-leaflet ([employer]) aortic mechanical prosthesis. * The gradient is normal for this prosthetic aortic valve. * Prosthetic valve leaflets are well visualized and are freely mobile * The prosthetic aortic valve appears to open well. Pulmonic Valve * The pulmonic valve is not well visualized. Great Vessels * The aortic root is normal size. Pericardium/Pleural * There is no pericardial effusion. Great Vessels * Normal inferior vena cava diameter and respiratory variation suggests normal central venous pressure. MMode 2D Measurements and Calculations IVSd 1.6 cm IVSs 1.9 cm LVIDd 5.2 cm LVIDs 4.0 cm LVPWd 1.3 cm LVPWs 1.6 cm IVS/LVPW 1.2 FS 22.8 % EDV(Teich) 127.4 ml ESV(Teich) 69.5 ml EF(Teich) 45.4 % EDV(cubed) 137.7 ml ESV(cubed) 63.5 ml EF(cubed) 53.9 % % IVS thick 23.1 % % LVPW thick 25.1 % LV mass(C)d 319.2 grams LV mass(C)dI 163.4 grams/m\S\2 LV mass(C)s 307.7 grams LV mass(C)sI 157.5 grams/m\S\2 SV(Teich) 57.9 ml SI(Teich) 29.6 ml/m\S\2 SV(cubed) 74.2 ml SI(cubed) 38.0 ml/m\S\2 Ao root diam 3.6 cm Ao root area 10.0 cm\S\2 LVOT diam 2.0 cm LVOT area 3.1 cm\S\2 LVAd ap4 34.0 cm\S\2 LVLd ap4 8.2 cm EDV(MOD-sp4) 115.4 ml EDV(sp4-el) 119.2 ml LVAs ap4 23.6 cm\S\2 LVLs ap4 7.3 cm ESV(MOD-sp4) 62.0 ml ESV(sp4-el) 65.0 ml EF(MOD-sp4) 46.2 % EF(sp4-el) 45.5 % LVAd ap2 31.8 cm\S\2 LVLd ap2 7.6 cm EDV(MOD-sp2) 108.5 ml EDV(sp2-el) 111.9 ml LVAs ap2 21.7 cm\S\2 LVLs ap2 6.6 cm ESV(MOD-sp2) 60.8 ml ESV(sp2-el) 60.7 ml EF(MOD-sp2) 44.0 % EF(sp2-el) 45.7 % LVLd %diff -7.66 % EDV(MOD-bp) 116.5 ml LVLs %diff -11.11 % ESV(MOD-bp) 63.1 ml EF(MOD-bp) 45.8 % SV(MOD-sp4) 53.3 ml SI(MOD-sp4) 27.3 ml/m\S\2 SV(MOD-sp2) 47.7 ml SI(MOD-sp2) 24.4 ml/m\S\2 SV(MOD-bp) 53.3 ml SI(MOD-bp) 27.3 ml/m\S\2 SV(sp4-el) 54.2 ml SI(sp4-el) 27.7 ml/m\S\2 SV(sp2-el) 51.1 ml SI(sp2-el) 26.2 ml/m\S\2 Doppler Measurements and Calculations MV E max nilda 121.3 cm/sec MV P1/2t max nilda 138.9 cm/sec MV P1/2t 75.2 msec MVA(P1/2t) 2.9 cm\S\2 MV dec slope 540.8 cm/sec\S\2 MV dec time 0.20 sec Ao V2 max 260.7 cm/sec Ao max PG 27.2 mmHg Ao max PG (full) 24.3 mmHg PEREZ(V,A) 1.0 cm\S\2 PEREZ(V,D) 1.0 cm\S\2 LV V1 max PG 2.9 mmHg LV V1 max 84.9 cm/sec PA V2 max 125.9 cm/sec PA max PG 6.3 mmHg TR max nilda 272.9 cm/sec
[2017-05-24 13:16] LABS: INR 1.8 (0.9-1.1); PARTIAL THROMBOPLASTIN RATIO 1.4; PROTHROMBIN TIME (PATIENT) 20.1 SECONDS (9.0-12.0)
[2017-05-24] MEDS ORDERED: METHYLPREDNISOLONE IV 40 MG in SYRINGE 0 ML IV ONE (13:30)
[2017-05-24 14:00] LABS: BASO % 0.4 %; BASO ABS # 0.02 K/uL (0-0.2); EOS % 3.9 %; HEMATOCRIT 39.6 % (37-47); IG% 0.2 %; LYMPH % 9.3 %; LYMPH ABS # 0.53 K/uL (1.2-3.4); MEAN CELL VOLUME 91.5 fL (80-100); MEAN CORPUSCULAR HEMOGLOBIN 28.4 pg (25-34); MEAN PLATELET VOLUME 11.7 fL (7.4-10.4); MONO % 9.5 %; NEUT % 76.7 %; PLATELET COUNT 207 K/uL (130-400); RED BLOOD COUNT 4.33 M/uL (4.2-5.4); WHITE BLOOD COUNT 5.71 K/uL (4.8-10.8)
[2017-05-24 14:02] LABS: COMPLETE YES; MEAN CORPUSCULAR HGB CONC 31.1 g/dl (32-36)
[2017-05-24] MEDS: HEPARIN 25,000 UNIT/500ML D5W 500 ML IV PRN (14:02)
--- NOTE | 2017-05-24 14:02 | PROGRESS NOTE ---
DATE: 05/24/2017 DATE: 05/24/2017. PROBLEM LIST: Includes: 1. Congestive heart failure. 2. Left lower lobe nodule. 3. Possible pneumonia. 4. Positive blood cultures. 5. Renal insufficiency. SUBJECTIVE: The patient reports that she continues to have some wheezing and cough however she reports that her breathing is significantly improved compared to admission. She states that she does still get a cough with little bit of congestion and mucus coming up. She gets some wheezing as well. She does not really have as much short of breath. She states that when she gets up and moves around she does notice a little bit. She states that she continues to need oxygen, however she was not on oxygen at home during the day, she just used it at nighttime. She denies any chest heaviness. No pleuritic chest pain. She denies any other difficulties at this time, no chest pain, no palpitations, no fever or chills. She is not having any abdominal pain. She reports that she does not have an appetite. She has no nausea or vomiting. She states that she does not feel like eating. Her bowels are moving, she is voiding well. She has no swelling in her extremities. OBJECTIVE: GENERAL: The patient is a 72-year-old female sitting at bedside, does not appear to be in any acute distress. She does have her oxygen in place. She is alert and oriented x3, mood is good, affect is good. VITAL SIGNS: Temp 36.5, pulse 79, respiration 22, blood pressure is 117/73, pulse ox 95% on 2 liters. HEAD, EYES, EARS, NOSE, AND THROAT: Normocephalic, atraumatic. Pupils equal, round and reactive to light and accommodation. Extraocular movements are intact. [place] moist gingival and buccal mucosa. NECK: Short, thick, no mass. No adenopathy. No bruits. CHEST: The patient has faint diffuse wheezing noted on exhalation bilaterally. No rale or rhonchi appreciated. CARDIOVASCULAR: Regular rate and rhythm. The patient does have a mechanical click. No gallops or rubs. ABDOMEN: Bowel sounds are present. Abdomen soft, nontender. No guarding, rigidity or organomegaly. EXTREMITIES: No erythema or edema. No tenderness. No cyanosis or clubbing. NEUROLOGIC: Cranial nerves II through XII grossly intact. No focal deficit noted. LABORATORY DATA: Shows white count is 6,000, H&H 11.2 and 36.3, platelet count of 199,000. INR 1.8, BUN 46, creatinine 1.5. Repeat blood cultures from 05/22/2017 show no growth to date. No recent imaging. IMPRESSION: 1. This is a 72-year-old female who presented to [facility] secondary to some increased dyspnea. She has been diagnosed with congestive heart failure and has been diuresed. She did have an echocardiogram done which showed moderate left ventricular concentric hypertrophy and ejection fraction of 45-50%, bileaflet mechanical aortic valve. Right atrium is severely dilated, increased right ventricular systolic pressure of 30-45 mmHg. Cardiology is following and the patient seems to be doing better. 2. Question etiology. The patient has had multiple pneumonias. At this point may just be some inflammation, but I would like to give her a dose of Solu-Medrol to see how she does. 3. Initial blood culture positive. Repeat blood cultures are negative to date. 4. Renal insufficiency. PLAN: 1. I would like to get the patient Solu-Medrol to see if this helps with her wheezing and improves her oxygenation as she is typically not on oxygen through the day at home. 2. In regards to her left lower lobe nodule, I think the patient should have followup as an outpatient. She has not seen anybody pulmonary as an outpatient and she has a left lower lobe nodule that appears to be pleural based per CT angiogram of March 2017 done at [facility] in [place]. Unfortunately, I do not have access to the images to review. At this point will give her 40 Solu-Medrol today, just a 1-time dose and see how she does. 3. Continue to follow through hospitalization.
--- NOTE | 2017-05-24 14:55 | DIAGNOSTIC IMAGING REPORT ---
CHEST 2 VIEWS ROUTINE CLINICAL HISTORY: Shortness of breath, cough. Wheezing. History of prior amiodarone use. COMPARISON STUDY: 05/20/2017 FINDINGS: There are postsurgical changes of a midline sternotomy and aortic valve replacement. The heart is mildly enlarged. As a left subclavian dual-chamber central venous pacemaker present. There is elevation of the interstitium, consistent with mild residual edema. There is a small right pleural effusion. There is no lobar consolidation. Surgical clips project over the right lateral apex IMPRESSION: 1. Cardiomegaly and mild interstitial edema 2. Small right pleural effusion Electronically signed by: Randall Moses M.D. 05/24/2017 2:54 PM Dictated Date/Time: 05/24/2017 2:52 PM
[2017-05-24 15:18] VITALS: PULSE 80; O2SAT 93
--- NOTE | 2017-05-24 15:24 | PROGRESS NOTE ---
DATE: 05/24/2017 The patient seen and examined. Chart, medications, laboratory studies reviewed. SUBJECTIVE: The patient notes no worsening complaints, though continues to have a bronchitic cough productive of small amounts of yellow sputum. Notes no fevers or chills. Notes no tachypalpitations. Notes no orthopnea. Denies worsening edema. Appetite is fair. Notes no bleeding difficulties. OBJECTIVE: VITAL SIGNS: Heart rate is 79. Blood pressure is 117/73. O2 saturations are 95% on 2 liters nasal cannula. NECK: Without jugular venous distention. LUNGS: Reveal coarse bronchitic sounds with forced expiration and cough anterior greater than posterior and minimal crackles at the bases. CARDIOVASCULAR: Irregularly irregular with intermittent ventricular pacing. There is crisp mechanical valve sounds audible throughout the precordium including as well as a grade 2/6 systolic murmur. There is no diastolic murmur. There is no S3 gallop. ABDOMEN: Soft, nontender. EXTREMITIES: Without cyanosis or clubbing. There is no peripheral edema. LABORATORY DATA: Pending from today. Laboratory studies this morning: Sodium is 141, potassium is 3.8, chloride is 105, bicarbonate is 29, BUN is 46, and creatinine is 1.5. White cell count was 6.3, hemoglobin 11.2. INR was 1.8. IMPRESSION: A 72-year-old female with complex past medical history including prior aortic valve replacement and aortic root repair with the patient received mechanical prosthesis 2004, history of past paroxysmal, now persistent atrial fibrillation with tachybrady syndrome, pacemaker in place. The patient presented with acute renal insufficiency, possibly in combination medication diuretic induced. Current exam does not suggest acute or ongoing congestive heart failure. Echocardiogram demonstrates some mild left ventricular impairment with dyssynergic septal contractibility and ejection fraction 45-50%. There is normally functioning mechanical valve prosthesis in the aortic valve position. There is marked biatrial dilatation, right greater than left, inferior vena cava diameter is not enlarged with normal collapse with respiratory variation. PLAN: We will continue to hold diuretics. We will likely resume oral furosemide at prehospital dosing at 40 mg in 1-2 days. We would continue all other medications as prescribed. As noted, warfarin dosing in the past has been at 6 mg per day. We will resume this at 6 mg per day for treatment of both atrial fibrillation as well as mechanical prosthesis and aortic valve position. A 2 view x-ray will be ordered. Her current complaints are mainly bronchitic cough which appears noncardiac etiologies.
[2017-05-24] MEDS ORDERED: WARFARIN SOD 6 MG TAB PO SCH (16:00)
[2017-05-24] MEDS ORDERED: WARFARIN SOD 5 MG TAB PO SCH (16:00)
[2017-05-24 16:37] VITALS: BP 113/78; PULSE 79; TEMP 36.6; O2SAT 95
--- NOTE | 2017-05-24 18:11 | Nephrology Progress Note ---
Nephrology Progress Note Date of Service May 24, 2017. Chief Complaint ZARIA Damon Keenan was seen and evaluated in her hospital room this morning. She reports improving activity tolerance. Denies significant dyspnea. Voiding urine without difficulty. No significant evidence of fluid retention. Review of Systems A complete review of systems was performed. Pertinent positives are noted above. All other systems are negative. Vital Signs Last 8 Hrs Date Time Temp Pulse Resp B/P (MAP) Pulse Ox O2 Delivery O2 Flow Rate FiO2 05/24/17 16:37 36.6 79 16 113/78 (90) 95 Nasal Cannula 2.0 05/24/17 16:00 Nasal Cannula 2.0 05/24/17 15:18 80 16 93 Nasal Cannula 2.0 I & O 24-Hour Column 05/25/17 08:00 Intake Total 300 ml Balance 300 ml Last Recorded Weight Weight (Kilograms): 104.300 Physical Exam General Appearance: WD/WN, no apparent distress, + obese Head: normocephalic, atraumatic Eyes: normal inspection, sclerae normal ENT: normal ENT inspection, pharynx normal Neck: supple, no JVD Respiratory/Chest: lungs clear, no respiratory distress, no accessory muscle use Cardiovascular: regular rate, rhythm, + systolic murmur Abdomen/GI: non tender, soft Extremities/Musculoskelatal: normal inspection, no pedal edema Neurologic/Psych: alert, oriented x 3 Family History Negative for CKD/ESRD Social History Alcohol Use: none Marital Status: Housing Status: lives with family 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 Never a smoker. Laboratory Results Past 24 Hours 05/24/17 12:48 Red Blood Count 4.33, Mean Corpuscular Volume 91.5, Mean Corpuscular Hemoglobin 28.4, Mean Corpuscular Hemoglobin Concent 31.1, Mean Platelet Volume 11.7, Neutrophils (%) (Auto) 76.7, Lymphocytes (%) (Auto) 9.3, Monocytes (%) (Auto) 9.5, Eosinophils (%) (Auto) 3.9, Basophils (%) (Auto) 0.4, Neutrophils # (Auto) 4.39, Lymphocytes # (Auto) 0.53, Monocytes # (Auto) 0.54, Eosinophils # (Auto) 0.22, Basophils # (Auto) 0.02 05/24/17 08:41 Test 05/24/17 08:41 05/24/17 12:48 Prothrombin Time 20.0 SECONDS (9.0-12.0) 20.1 SECONDS (9.0-12.0) Prothromb Time International Ratio 1.8 (0.9-1.1) 1.8 (0.9-1.1) Anion Gap 7.0 mmol/L (3-11) Est Creatinine Clear Calc Drug Dose 35.7 ml/min Estimated GFR () 39.6 Estimated GFR (Non- 34.2 BUN/Creatinine Ratio 30.7 (10-20) Calcium Level 8.5 mg/dl (8.5-10.1) Magnesium Level 2.4 mg/dl (1.8-2.4) White Blood Count 5.71 K/uL (4.8-10.8) Red Blood Count 4.33 M/uL (4.2-5.4) Hemoglobin 12.3 g/dL (12.0-16.0) Hematocrit 39.6 % (37-47) Mean Corpuscular Volume 91.5 fL (80-100) Mean Corpuscular Hemoglobin 28.4 pg (25-34) Mean Corpuscular Hemoglobin Concent 31.1 g/dl (32-36) Platelet Count 207 K/uL (130-400) Mean Platelet Volume 11.7 fL (7.4-10.4) Neutrophils (%) (Auto) 76.7 % Lymphocytes (%) (Auto) 9.3 % Monocytes (%) (Auto) 9.5 % Eosinophils (%) (Auto) 3.9 % Basophils (%) (Auto) 0.4 % Neutrophils # (Auto) 4.39 K/uL (1.4-6.5) Lymphocytes # (Auto) 0.53 K/uL (1.2-3.4) Monocytes # (Auto) 0.54 K/uL (0.11-0.59) Eosinophils # (Auto) 0.22 K/uL (0-0.5) Basophils # (Auto) 0.02 K/uL (0-0.2) RDW Standard Deviation 49.1 fL (36.4-46.3) RDW Coefficient of Variation 14.4 % (11.5-14.5) Immature Granulocyte % (Auto) 0.2 % Immature Granulocyte # (Auto) 0.01 K/uL (0.00-0.02) Activated Partial Thromboplast Time 36.3 SECONDS (21.0-31.0) Partial Thromboplastin Ratio 1.4 Allergies Coded Allergies: Digoxin (Verified Adverse Reaction, Intermediate, N/V, 05/20/17) Morphine (Verified Adverse Reaction, Intermediate, HALLUCINATIONS AND AGGRESSION, 05/20/17) Medications Current Inpatient Medications Medications (Trade) Dose Ordered Sig/Jenifer Route Start Time Stop Time Status Last Admin Dose Admin Aspirin (Ecotrin Tab) 81 mg QAM PO 05/21/17 09:00 06/20/17 08:59 05/24/17 07:58 81 MG Sertraline HCl (Zoloft Tab) 50 mg HS PO 05/20/17 21:00 06/19/17 20:59 05/23/17 21:47 50 MG Metoprolol Tartrate (Lopressor Tab) 12.5 mg BID PO 05/20/17 21:00 06/19/17 20:59 05/24/17 07:58 12.5 MG Acetaminophen (Tylenol Tab) 650 mg Q4H PRN PO 05/20/17 18:30 06/19/17 18:29 05/24/17 00:22 650 MG Ondansetron HCl (Zofran Inj) 4 mg Q6H PRN IV 05/20/17 18:30 06/19/17 18:29 Levalbuterol (Xopenex 1.25MG/ 0.5ML Neb) 1.25 mg Q8R INH 05/21/17 00:00 06/20/17 00:00 05/24/17 15:18 1.25 MG Ipratropium [place] (Atrovent 0.02% 0.5MG/2.5ML Neb) 0.5 mg Q8R INH 05/21/17 00:00 06/20/17 00:00 05/24/17 15:18 0.5 MG Polyethylene (Miralax Powder Packet) 17 gm DAILY PRN PO 05/21/17 09:15 06/20/17 09:14 Rosuvastatin Calcium (Crestor Tab) 20 mg HS PO 05/21/17 21:00 06/20/17 20:59 05/23/17 21:46 20 MG Benzonatate (Tessalon Perles Cap) 100 mg TID PO 05/24/17 08:00 06/23/17 07:59 05/24/17 13:30 100 MG Heparin Sodium/ Dextrose 500 ml @ 25 mls/hr Q20H PRN IV 05/24/17 13:30 06/23/17 13:29 05/24/17 14:02 25 MLS/HR Warfarin Sodium (Coumadin Tab) 6 mg DAILY@16 PO 05/24/17 16:00 06/20/17 15:59 05/24/17 15:57 6 MG Impression (1) Acute kidney injury (2) Chronic kidney disease (CKD) (3) CHF exacerbation Patient admitted w/ acute on chronic kidney injury, hypotension and recurrent CHF. Renal US revealed 9 cm kidneys w/ cortical thinning c/w microvascular disease. UA bland and microscopy negative. Creatinine improving with appropriate fluid balance and holding CECELIA. Recommendations ACUTE KIDNEY INJURY: -- Continue to hold Lisinopril -- Cardiology suggested no plan to restart CECELIA/ARB -- Renal US report was reviewed today and negative for obstruction. Renal artery doppler was negative for stenosis. -- Creatinine improved appropriate and no additional suggestions from nephrology at this time -- Please call with questions or concerns -- Follow up in the nephrology clinic with me in 1-2 weeks of discharge CHRONIC KIDNEY DISEASE: -- Baseline creatinine 1.3. Renal US shows 9 cm kidneys w/ cortical thinning c/ w microvascular disease CONGESTIVE HEART FAILURE: -- Appreciate cardiology consultation -- Furosemide held with plans to restart in 1-2 days with monitoring of renal function
[2017-05-24 19:34] VITALS: BP 98/65; PULSE 93
[2017-05-24 20:36] LABS: PARTIAL THROMBOPLASTIN RATIO 2.6
[2017-05-24] MEDS: ROSUVASTATIN CALCIUM 20 MG TAB PO SCH (21:43)
[2017-05-24] MEDS: SERTRALINE HCL 100 MG TAB PO SCH (21:43)
[2017-05-25 00:26] VITALS: BP 133/78; PULSE 88; TEMP 36.5; O2SAT 95
[2017-05-25 06:46] VITALS: BP 118/76; PULSE 79; TEMP 36.3; O2SAT 90
[2017-05-25 07:22] VITALS: PULSE 87; O2SAT 98
[2017-05-25 07:22] LABS: INR 2.3 (0.9-1.1); PARTIAL THROMBOPLASTIN RATIO 3.8; PROTHROMBIN TIME (PATIENT) 25.9 SECONDS (9.0-12.0)
[2017-05-25] MEDS: LEVALBUTEROL 1.25MG/0.5ML NEB INH SCH (07:22)
[2017-05-25] MEDS: IPRATROPIUM BROMIDE NEB SOLN 0.02% 2.5 ML VIAL INH SCH (07:22)
[2017-05-25 07:37] LABS: CALCIUM 8.8 mg/dl (8.5-10.1); CREATININE 1.3 mg/dl (0.60-1.20)
[2017-05-25] MEDS: BENZONATATE 100MG CAP PO SCH (08:08)
[2017-05-25] MEDS: METOPROLOL TARTRATE 25 MG TAB PO SCH (08:08)
[2017-05-25] MEDS: ASPIRIN 81 MG ECTAB PO SCH (08:08)
[2017-05-25] MEDS: HEPARIN 25,000 UNIT/500ML D5W 500 ML IV PRN (08:44)
--- NOTE | 2017-05-25 09:37 | Discharge Instructions ---
Discharge Instructions Date of Service May 25, 2017. Admission Reason for Admission: Acute/Chronic Resp Failure W/ Hypoxia, Acute Renal Discharge Discharge Diagnosis / Problem: Acute on chronic respiratory failure, acute renal failure Discharge Goals Goal(s): Decrease discomfort, Improve function, Diagnostic testing, Therapeutic intervention Activity Recommendations Activity Limitations: resume your previous activity (as tolerated) . Instructions / Follow-Up Instructions / Follow-Up You were admitted to the hospital after presenting with worsening shortness of breath, productive cough, and fever. You were found to be in acute respiratory failure on top of your underlying chronic respiratory failure. This was thought to be secondary to an exacerbation of your chronic congestive heart failure. This was treated with IV Lasix to diurese the excess fluid off, which did help to improve your symptoms. A repeat echocardiogram (ultrasound of the heart) showed relatively stable systolic heart failure compared to a previous study done earlier in the month. While working up your shortness of breath, you were found to have a pulmonary nodule. Pulmonology was consulted, and they would like you to follow up on this as an outpatient. Upon admission, you were also found to be in acute renal (kidney) failure. This may have been related to your low blood pressure as an outpatient prior to arrival and/or your recent history of multiple antibiotic use. An ultrasound of the kidneys was normal. Your lisinopril was held due to the kidney failure. The kidney failure did resolve, and your kidney function appears to be back to baseline at discharge. The valet runner, Dr. Gauthier, would like to follow up with you in about 1-2 weeks. Medications: *STOP Levaquin (levofloxacin) as you no longer require antibiotics. *STOP lisinopril, one of your blood pressure medications, due to your kidney impairment. *Continue your other home medications as prescribed. Resume your home dose of warfarin 6 mg daily. Follow up: *Have your INR rechecked on May 27. A script has been provided. *Follow up with your primary care provider in 1 week regarding your hospital stay and changes to your medications. *Follow up with pulmonology in 1-2 weeks regarding the pulmonary nodule, as this will need further work up and monitoring. *Follow up with nephrology (Dr. Gauthier) in 1-2 weeks regarding your acute renal failure. Please seek medical attention if you experience fevers, chills, sweats, lightheadedness/dizziness, loss of consciousness, chest pain, shortness of breath, nausea, vomiting, numbness or tingling. Call your Primary Care doctor if any of the following symptoms or problems start or get worse: * Shortness of breath or difficulty breathing * Wake up at night short of breath * Chest pain * Cough * Swelling of your hands, feet, or legs * More fatigued or tired with your normal activity * Palpitations - sudden fast heart beats WEIGHT * Weigh yourself every morning after using the bathroom. * Use the same scale. * Wear the same amount of clothing. * Write your weight down on a chart. * Call your Primary Care doctor if you gain more than 2-3 pounds in 1-2 days. MEDICATIONS * Use this discharge instruction sheet for medication instructions. * Take your medications at the time your doctor ordered. * Do not skip a dose of your medicines. * If you miss a dose of medicine, take it as soon as possible, but DO NOT DOUBLE A DOSE. * Read your medicine information when you get home. * Know all of the side effects of your medicine. If in doubt, ask your pharmacist * Call your Primary Care doctor's office if you have any side effects. * Be sure all of your doctors know what medicine and herbs you take (including cold, flu, and herbal medicine). Take the following with you to your follow-up doctor appointments: * Weight Chart * Medication List * List of questions Do not drink excessive alcohol, beer or wine. Current Hospital Diet Patient's current hospital diet: Renal Diet Discharge Diet Recommended Diet: Renal Diet Procedures Procedures Performed: Echocardiogram Pending Studies Studies pending at discharge: yes List of pending studies: Final blood cultures. Preliminary results negative. Medical Emergencies . Who to Call and When: Call 911 or go to the Emergency Room if: * If at any time you feel your situation is an emergency * You have tightness or pain in your chest that does not go away with rest or Nitroglycerin * You are very short of breath even with rest . Non-Emergent Contact Non-Emergency issues call your: Primary Care Provider, Risk Control Field Representative, Statistics Intern Call Non-Emergent contact if: you have a fever, you have any medication questions . Past History Medical & Surgical History: (1) Acute and chronic respiratory failure with hypoxia (2) Acute renal failure (3) CHF exacerbation . "Provider Documentation" section prepared by Dee Campbell. . VTE Core Measure Inpt VTE Proph given/why not?: Warfarin (Coumadin), Other Anticoagulation ( heparin drip), T.E.D. Stockings, SCD's
[2017-05-25 10:12] VITALS: BP 118/76; PULSE 87; TEMP 36.3; O2SAT 98
--- NOTE | 2017-05-25 13:34 | Discharge Summary ---
Discharge Summary Date of Service May 25, 2017. Discharge Summary Admission Date: May 20, 2017 at 18:32 Discharge Date: May 25, 2017 Discharge Disposition: Home with services Principal Diagnosis: Acute on chronic respiratory failure, acute renal failure Problems/Secondary Diagnoses: HTN HLD A-fib Mechanical aortic valve Pacemaker Chronic systolic CHF CKD stage III-IV Depression Procedures: Echocardiogram: Interpretation Summary * Name: JAGDEEP VILLA Study Date: 05/24/2017 07:22 AM BP: 117/73 mmHg * Patient Location: [facility]\S\W457\S\2 HR: 76 * : 1945 (M/d/yyyy) Gender: Female Height: 59 in * Age: 72 yrs Ethnicity: [place] Weight: 229 lb * Ordering Physician: Hai Cancino * Referring Physician: Self, Referred * Performed By: Irene Rosario RCS * * Reason For Study: AVR * BSA: 2.0 m2 * -- Conclusions -- * The left ventricle is normal in size. * There is moderate concentric left ventricular hypertrophy. * Apical and septal wall motion abnormality c/w pacemaker activation is present. * Ejection Fraction = 45-50%. * There is a bi-leaflet ([place]) aortic mechanical prosthesis. * Prosthetic valve leaflets are well visualized and are freely mobile * The gradient is normal for this prosthetic aortic valve. * The left atrium is moderately dilated. * The right atrium is severely dilated. * There is trace tricuspid regurgitation. * Right ventricular systolic pressure is elevated at 30-40mmHg. * Normal inferior vena cava diameter and respiratory variation suggests normal central venous pressure. * The aortic root is normal size. Consultations: Nephrology--Dr. Diaz/Dr. Gauthier Pulmonology--Dr. Richard Infectious disease--Dr. Miranda Cardiology--Dr. Hai Cancino Medication Reconciliation Continued Medications: Alendronate/Cholecalciferol (Fosamax+D 70MG/2800 Iu) 70 Mg Tab 1 TABLET PO WK TAKE DAILY ON SUNDAYS Aspirin (Aspirin) 81 Mg Chw 81 MG PO DAILY, 3 Refills Calcium Carbonate-Vitamin D (Calcium 600 + D) 1 Tab Tab 1 TAB PO AMHS Furosemide (Lasix) 40 Mg Tab 40 MG PO QAM, 5 Refills Ipratropium-Albuterol (Duoneb) 3 Ml Nebu 1 TREATMENT INH PRN UD, INHA Metoprolol Succinate (Metoprolol Succinate ER) 50 Mg Tabcr 50 MG PO QAM Potassium Ext Rel (Klor-Con) 20 Meq Tabcr 20 MEQ PO HS, TAB Rosuvastatin Calcium (Crestor) 20 Mg Tab 20 MG PO HS, 5 Refills Sertraline Hcl (Zoloft) 100 Mg Tab 100 MG PO HS Warfarin Sodium (Warfarin Sodium) 4 Mg Tab 6 MG PO DAILY, 1 Refill Discontinued Medications: Levofloxacin (Levaquin) 500 Mg Tab 250 MG PO DAILY, #10 Lisinopril (Prinivil) 20 Mg Tab 20 MG PO HS, 5 Refills Referrals At Discharge Follow up Referrals: Family Practice Referral - Within 1 Week with Laina Rose M.D. [employer] Referral - Within 1-2 Weeks with Sj Gauthier D.O. [employer] Machine [employer] Technician Referral - Within 2 Weeks with Jorje Richard, Discharge Exam Patient reports feeling well. She states that she is slightly short of breath, but this is at her baseline. She denies any dyspnea on exertion. Her coughing and wheezing are improved. The patient denies fevers, chills, sweats, chest pain, palpitations, claudication, nausea, vomiting, abdominal pain, dysuria, hematuria, urinary retention, paralysis, weakness, numbness and tingling. Review of Systems: Constitutional: No fever, No chills, No sweats Eyes: No worsening of vision, No eye pain, No diplopia ENT: No hearing loss, No sore throat, No trouble swallowing Respiratory: + cough (improved), + sputum, + wheezing (improved), No shortness of breath (breathing is baseline), No dyspnea on exertion Cardiovascular: No chest pain, No claudication, No palpitations Abdomen: No pain, No nausea, No vomiting Musculoskeletal: No joint pain, No muscle pain, No calf pain Genitourinary - Female: No dysuria, No urinary retention, No hematuria Neurologic: No paralysis, No weakness, No numbness/tingling Integumentary: No rash, No itch, No color change Physical Exam: General Appearance: WD/WN, no apparent distress, + obese (morbidly) Eyes: normal inspection, PERRL, EOMI ENT: normal ENT inspection, hearing grossly normal, pharynx normal Neck: supple, no JVD, trachea midline Respiratory/Chest: lungs clear, no respiratory distress, + decreased breath sounds Cardiovascular: no gallop, no murmur, + irregularly irregular (rate controlled), + pertinent finding (click of mechanical valve) Abdomen / GI: normal bowel sounds, non tender, soft Extremities: normal inspection, no calf tenderness, + swelling (1+ pitting edema) Neurologic/Psychiatric: alert, normal mood/affect, oriented x 3 Skin: normal color, warm/dry, no rash Hospital Course 72 y/o female presents to the emergency department with complaints of shortness of breath, productive cough and intermittent fever. Previously treated for community-acquired pneumonia which required intubation at [facility]. She has been on multiple antibiotics (Augmentin, doxycycline and most recently Levaquin) with minimal improvement. Now found to be in acute renal failure. Acute on chronic respiratory failure, likely secondary to CHF exacerbation- RESOLVED: - Admit to tele for cardiac monitoring- no acute events overnight - Transferred to med/surg on 05/23 - No indication for antibiotic treatment at this time- vitals stable, no WBC, no discolored sputum production - DuoNebs q8 hrs - O2 by protocol - Checked ESR, CRP, and procalcitonin. ESR and CRP elevated, procalcitonin WNL - BCx- 1 set gram + bacilli, likely contamination - Repeat BCx- NGTD x2 - Start IV Vancomycin on 05/22 and consulted ID- likely contaminant, d/c'd Vanco on 05/23 - Pulmonary consulted, appreciate recommendations -- LLL mass on 03/27/17. Repeat CT on 05/17/17 it was found to be smaller, measuring 2 x 2.1 x 2.1 cm- outpt f/u of nodule recommended Acute on chronic systolic CHF--improving - Lasix 40 mg QAM held; treated w/ IV 40 mg Lasix 05/20-05/23 - Resume home dose Lasix 40 mg PO qd at discharge - Most recent ECHO 05/08/17- reviewed - Consulted cardiology, appreciate recommendations - Held PO/IV Lasix on 05/24 - Repeat ECHO shows stable EF 45-50% ARF on CKD stage III-IV--improving/resolved - Urine Cr, sodium, and potassium- reviewed - Renal US- The kidneys are atrophic and without hydronephrosis. Normal arterial Doppler. No evidence for a significant stenotic process. - Gentle IVF @ 35 ml/hr- d/c'd - Hold nephrotoxic agents - Consulted nephrology, appreciate recommendations: hold lisinopril per cardiology. Creatinine baseline ~1.3. F/u in 1-[address] Gauthier - Creatinine at baseline on discharge at 1.3 - Lisinopril stopped at discharge, will d/c with home dose of metoprolol instead Chronic cough - Tessalon pearls 100 mg PO TID Hyperkalemia- RESOLVED: - Treated w/ 30 gm Kayexalate on 05/20 - Hold KCL 20 mEq HS - Potassium WNL at discharge HTN--CONTROLLED -Lisinopril 20 mg daily held due to ARF- do NOT resume at discharge per cardiology recommendations -Metoprolol succinate 50 mg PO qd A fib--rate controlled - Hold Coumadin due to supratherapuetic INR of 3.8 on 05/21- resume Coumadin on w/ INR of 2/0- follow PT/INR -- INR 1.8 on 05/24- increase Coumadin from 3 mg to 5 mg daily and begin IV Heparin gtt until INR ~2.5 - Metoprolol Succinate 50 mg QAM , ASA 81 mg daily - INR 2.3 on discharge, will continue warfarin 6 mg PO qd and recheck PT/INR on 05/27 h/o AVR- mechanical -INR goal of 2.5-3.5, Coumadin as above Hyperlipidemia -Continue Crestor 20 mg HS Depression -Sertraline qhs GI Prophylaxis -IV Zofran PRN -MiraLAX PRN DVT prophylaxis -Heparin drip/Coumadin Code Status -Level I, FULL RESUSCITATION STATUS Dispo -From home, PT recommend acute rehab but pt refuses -Return home w/daughter and home health services, risk discussed Total Time Spent: Greater than 30 minutes This includes examination of the patient, discharge planning, medication reconciliation, and communication with other providers. Discharge Instructions Please refer to the electronic Patient Visit Report (Discharge Instructions) for additional information. Additional Copies To Laina Rose M.D.
== END 2017-05-25 14:05 | disposition home health service (06) | DRG 291 ==
LOC: EDBD 14:07 → C.EDC 14:09 → C.2T 18:32 → ENRESERV 18:51 → C.MS4W 05-23 10:32
PROVIDERS: ADMIT Internal Medicine; ATTEND Hospitalist
DX: I13.0 Hypertensive heart and chronic kidney disease with heart failure and stage 1 through stage 4 chronic kidney disease, or unspecified chronic kidney disease (principal); J96.20 Acute and chronic respiratory failure, unspecified whether with hypoxia or hypercapnia; I50.23 Acute on chronic systolic (congestive) heart failure; N17.9 Acute kidney failure, unspecified; N18.4 Chronic kidney disease, stage 4 (severe); I48.1 Persistent atrial fibrillation; E78.5 Hyperlipidemia, unspecified; Z95.2 Presence of prosthetic heart valve; Z95.0 Presence of cardiac pacemaker; F32.9 Major depressive disorder, single episode, unspecified; Z79.82 Long term (current) use of aspirin; R05 Cough; E87.5 Hyperkalemia; Z82.49 Family history of ischemic heart disease and other diseases of the circulatory system; Z79.01 Long term (current) use of anticoagulants; Z86.718 Personal history of other venous thrombosis and embolism; R79.1 Abnormal coagulation profile